=== PATIENT | male | born 1960 | race Caucasian/White ===

== ENCOUNTER → 2024-01-09 09:38 | Outpatient (BNVA) | payer OTHER, SELFPAY | PROVIDERS: PCP Internal Medicine; Visit Provider Physician Assistant Surgical ==

== ENCOUNTER 2024-02-25 09:03 | Outpatient (AMB) | payer OTHER, SELFPAY ==
--- NOTE | 2024-02-25 09:03 | A.OFFVIS_ITS ---
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 He heard about our program from his . His goal is to lose weight and achieve a healthy lifestyle as well as to improve, if not resolve, obesity related medical conditions, including htn. He reports first being concerned about his weight over the last 7-8 years, highest weight to date was 328. Current weight is 328 pounds with a BMI of 51.4. He has tried multiple methods of weight loss including fad diets without permanent results. He lives with his . 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 He wakes at:?5 am, and goes to bed at?10 pm. Dinner is at 7 pm. Breakfast: muffin w egg and cheese AM snack: pb crackers Lunch: sandwich, chips, 4 cookies, yogurt and fruit PM snack: skip Dinner: turkey tips and rice, kielbasa, corn After dinner: ice cream Other snacks: donut Liquids: 64 oz water, 20 oz pepsi or mt dew 1-2 x per week, 6-8 oz oj daily Alcohol/marijuana/tobacco intake: 2-3 beers per week, rare edible, occ cigar Exercise: none, gym membership (PF), elliptical in house GERD score: 0 ROB score: 0 ESS score: 8 QOL score: 77 PFSH Surgical History Hx of oral surgery Hx of colonoscopy Family History Family/Other No problems noted. Social History Alcohol intake: current Alcohol intake frequency: other Alcohol type: beer Comment: weekends socially Patient Tobacco Use Status: Current someday Tobacco user Tobacco use type: Cigar Physical Exam Vital Signs: Last Vital Signs Temp 96.7 F L 02/25/24 09:19 Pulse 92 02/25/24 09:19 BP 156/79 H 02/25/24 09:19 Pulse Ox 96 02/25/24 09:19 Oxygen Delivery Method Room Air 02/25/24 09:19 BMI result Body Mass Index 51.4 Const General: cooperative, healthy appearing and no acute distress Orientation/consciousness: patient oriented x3 HEENT Head: Yes normal to inspection Ears: hearing grossly normal bilaterally General nose exam: Normal external nose present Face and sinus: Yes normal facial exam Eyes General: appearance normal, both eyes and all related structures Resp Effort & Inspection: normal respiratory effort Auscultation: clear to auscultation bilaterally Cardio Rate: regular rate Rhythm: regular rhythm Heart sounds: S1 normal heart sound present and S2 normal heart sound present GI Inspection: Yes normal to inspection, No distended and Yes obesity Palpation (GI): Soft to palpation, nontender and no guarding Auscultation: normal bowel sounds Skin General skin exam: no rashes or lesions noted Neuro General: patient oriented x3 Extrem General: No edema Psych Appearance: grossly normal Mental Status: mental status grossly normal Speech and movement: Normal speech and movement present Affect: normal affect Attitude: cooperative Assessment & Plan Assessment & Plan (1) Morbid obesity: Code(s): E66.01 - Morbid (severe) obesity due to excess calories Category: Medical Plan: This is a?63 yo male who will start our SWL program to prepare for bariatric surgery.? Blood work, CXR, ECG, Abd US and UGI have been ordered. She is being scheduled for initial consultations. She will start SWL classes and watch the first three videos before her next appointment. 1. You have been given a paper with a link to our software ingrid (The Right [email or web address][email or web address]) to generate an individualized nutritional and exercise plan specific for you. Please send me a screenshot of the plans you will generate Meal to include lean meat (beef, fish, pork, turkey, chicken), or vietnamese yogurt, or egg whites, or beans with a salad with olive oil and fruits (berries, pears, apples, kiwi). Avoid salt, breads, potatoes, rice, pasta, desserts. 2. If you choose shakes, each shake would be drunk slowly, like coffee over a period of 2 hours. 3. If you choose bars, cut each bar in 4 pieces and eat each piece in 30 min to make each bar last 2 hours. 4. I emphasized the importance of measuring accurately the food portion and measure it when serving the food on a plate 5. The meal portions include a specific number of forks of meat (protein) and salad. You always eat the meat portion but you can replace up to half of salad/vegetables portion with rice, potatoes or pasta, or a fruit ?if you like. The less you do it the better weight loss will be. 6. One full-size fork is what can be scooped on the fork without falling aside and not what can be bit with the fork. Use regular forks like those you find in a typical restaurant. 7.? Please send me weight measurements from your body composition scale as soon as possible and then once a week. Always include your diet and exercise plan. The best time to weigh yourself is first thing in the morning after going to the bathroom. 8. The best choice for exercise would be elliptical at home weekdays and treadmill/stationary bike/rowing machine at [employer] [facility] gym on the weekends. Alternatively start walking outside daily, tracking calories with a goal of 300 calories per day, daily. You can download the ingrid [employer] which can track your time, distance and calories while walking outside. You press start in the ingrid when you start and then stop when you are finished. 9.?Goal is to lose at least 1.5-2 lbs per week, and about 10% before surgery, which is about 32 pounds 10. Please follow the diet plan exactly without any change. If you don't like something about the plan or you feel hungry you need to communicate with me so I can help you revise the plan. My cell phone number to communicate with me by text is [phone] Patient is morbidly obese and is not considered stable at this time.?I spent a total of 70 minutes reviewing/updating records, examining the patient and counseling the patient on weight management as detailed above. Orders: Orders Insulin Today E66.01 - Morbid (severe) obesity due to excess calories, I10 - Essential (primary) hypertension Lipid Panel Today E66.01 - Morbid (severe) obesity due to excess calories, I10 - Essential (primary) hypertension IRON PROFILE Today E66.01 - Morbid (severe) obesity due to excess calories, I10 - Essential (primary) hypertension Comprehensive Met. Panel Today E66.01 - Morbid (severe) obesity due to excess calories, I10 - Essential (primary) hypertension Zinc Today E66.01 - Morbid (severe) obesity due to excess calories, I10 - Essential (primary) hypertension Vitamin B1 Today E66.01 - Morbid (severe) obesity due to excess calories, I10 - Essential (primary) hypertension Vitamin A Today E66.01 - Morbid (severe) obesity due to excess calories, I10 - Essential (primary) hypertension TSH reflex Free T4 Today E66.01 - Morbid (severe) obesity due to excess calories, I10 - Essential (primary) hypertension Ferritin Today E66.01 - Morbid (severe) obesity due to excess calories, I10 - Essential (primary) hypertension XR chest 2V Today E66.01 - Morbid (severe) obesity due to excess calories, I10 - Essential (primary) hypertension FL upper GI w air Today E66.01 - Morbid (severe) obesity due to excess calories, I10 - Essential (primary) hypertension Hemoglobin A1c Today E66.01 - Morbid (severe) obesity due to excess calories, I10 - Essential (primary) hypertension Complete Blood Count Auto Diff Today E66.01 - Morbid (severe) obesity due to excess calories, I10 - Essential (primary) hypertension Vitamin B12 and Folate Today E66.01 - Morbid (severe) obesity due to excess calories, I10 - Essential (primary) hypertension C Reactive Protein Today E66.01 - Morbid (severe) obesity due to excess calories, I10 - Essential (primary) hypertension Vitamin D 25-OH Total Today E66.01 - Morbid (severe) obesity due to excess calories, I10 - Essential (primary) hypertension US abdomen comp w elastography Today E66.01 - Morbid (severe) obesity due to excess calories, I10 - Essential (primary) hypertension ECG 12 lead EKG Today E66.01 - Morbid (severe) obesity due to excess calories, I10 - Essential (primary) hypertension Referrals Behavioral Health Referral E66.01 - Morbid (severe) obesity due to excess calories, I10 - Essential (primary) hypertension
[2024-02-25 09:19] VITALS: BP 156/79; PULSE 92; TEMP 35.9; O2SAT 96; BMI 51.4
== END 2024-02-25 09:59 | disposition home or self-care (01) ==
PROVIDERS: PCP Internal Medicine; Visit Provider Physician Assistant Surgical
DX: E66.01 Morbid (severe) obesity due to excess calories (principal)
CPT/HCPCS: 99205

== ENCOUNTER → 2024-02-25 09:03 | Outpatient (BNVA) | payer OTHER, SELFPAY | PROVIDERS: PCP Internal Medicine; Visit Provider Physician Assistant Surgical ==

== ENCOUNTER → 2024-03-06 11:14 | Outpatient (BNVA) | payer OTHER, SELFPAY | PROVIDERS: PCP Internal Medicine; Visit Provider Counselor Mental Health ==

== ENCOUNTER → 2024-03-06 11:14 | Outpatient (AMB) | payer OTHER, SELFPAY ==
--- NOTE | 2024-03-06 11:13 | MHC.WMTHER ---
Intake Intake Visit Reasons: TV BH Intake Allergies dextrose 5 % in water [From ZYVOX] Allergy (Unknown, Verified 02/25/24 09:07) HIVES linezolid [From ZYVOX] Allergy (Unknown, Verified 02/25/24 09:07) HIVES PFSH Surgical History Hx of oral surgery Hx of colonoscopy Family History Family/Other No problems noted. Social History Alcohol intake: current Alcohol intake frequency: other Alcohol type: beer Comment: weekends socially Patient Tobacco Use Status: Current someday Tobacco user Tobacco use type: Cigar Behavioral Health Assessment Weight Management Therapy Therapy Notes Details PT is a 63 years old male, who presents for a visit to complete BH assessment as part of surgical weight loss program. PT denied any history of mental health treatment and or past hospitalization/crisis for behavioral health. Also, denies any history or recent safety concerns around SI/SA and/or self-harm/other-harm, also there is no history of substance use reported. There is also no evidence for stress/emotional-eating, and scores from BES suggest low risk for binge eating behavior. PHQ- scores also showed no active symptoms/concerns with depression. On the other hand, mental status exam is within normal limits, suggesting person's functioning is not impaired. At this time patient is cleared from the behavioral health standpoint. Presenting Concerns Referral Source [facility] Provider, PT sees ORACIO, had first visit on 02/25/24 Reason for referral Completion of behavioral health assessment as part of process for weight-loss surgery. Precipitating Event Obesity. Living Situation Current Living Situation Own At risk of losing current housing? No Satisfied with current living situation? Yes Comments PT lives with his and pets (1 dog and 3 cats) Food/Weight/Diet Expectations of change Initial goal is to lose 10% before surgery, which is about 32 pounds. Patient goals are to feel better, healthier and live a long and active life. PT is implementing the following: Current meal plan: 2 shakes, 1 meal, 1 bar. Exercise plan: hasn't started. History/Relationship with food Denies any concerns around emotional eating. PT believes at times his portions are big, and his sweet tooth Example of meals before starting the program: Breakfast: egg, ham and chesse sandwich with juice and milk. Lunch: a deli sandwich with chips, 4 cookies, fruit and yogurt. Dinner: cook at home. meat, potatoes or rice and a vegetable. 1-2 times at week they do take out. Snacks: a banana, crackers around 10:30am. Cookies and sweet things on the weekends. Drinks/Liquids: seltzer, water, 1 cup of juice in the morning, 6oz of milk in the morning. Aprox 1 at week will have 1 can of soda. History/Relationship with weight Growing up he was chubby, but became bigger on his 20's as he had weird work schedules. In the last 10 years, the patient's Lowest weight was 220Lbs and current weight is his highest History/Relationship with dieting About 10 years ago he did a Fat loss program following a diet and workouts, lost 100Lbs over the course of over a year. Binge Eating Do you frequently eat large amounts of food in short periods of time, not feeling physically hungry? No Do you feel out of control when you eat a large amount of food in a short period of time? No Do you eat large amounts of food rapidly and typically alone? No Night Eating Do you wake up at least once during the night to eat? No If you wake up in the night, do you find that it is necessary to eat something in order to fall back asleep? No Do you have little or no appetite in the morning and feel very hungry in the evening, often overeating between dinner and when you go to bed? No Social History Family history and relationship no children, but has 2 stepdaughters (they are 26 and 31). He has 1 sister with 2 kids, parents . He reports good family dynamics. 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 Developmental history and status None. Social support . Community support None. Anabaptist/Spirituality [employer]ology, but doesn't practice since becoming an adult. Cultural/Ethnic information . Legal Involvement and History Current or historical involvement with the legal system? None reported. Education Highest grade completed Bachelors degree. Preferred learning style Learn by doing Currently enrolled in educational program? No Interested in further educational program? No Educational Interests/Skills Describes himself as a problem solver. 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 ) Wants help to find employment? No Meaningful activities Golf, family activities, daily walks with dog. Financial Situation Describe current financial situation Comfortable Financial assistance? None Service Service? No Mental Health and Addiction Treatment Current/Past substance abuse? No Comments Alcohol: 2 times at week, 2-3 beers. Cigarettes/Tobacco: Occasionally, 1 every couple months. Cannabis/Edibles: Edibles for sleeping, 1 time or less at week. Lottery: scratch tickets once in a while. Current/Past addictive behavior concerns? No Psychiatric history PT did marriage counseling in the past for 2 or 4 session. PT denies ever been in crisis or inpatient for mental health. There is no history and/or current concern about SI/SA and self-harm or other harm. Medical and Physical Health Summary Additional Medical History not covered in history None reported. Sexual History concerns None reported Physical exam in the last year? Yes Pain Screening Current pain? No Pain in the last few months? No Medications Is the patient compliant with medications? Yes Does the patient have Lala Guardian in place? Not applicable Does the patient use complimentary health approaches? No Trauma/Abuse History History of trauma? No Questionnaires PHQ-9 Over the last 2 weeks, how often have you been bothered by any of the following problems? 1. Little interest or pleasure in doing things: several days 2. Feeling down, depressed, or hopeless: not at all 3. Trouble falling or staying asleep, or sleeping too much: several days 4. Feeling tired or having little energy: not at all 5. Poor appetite or overeating: not at all 6. Feeling bad about yourself - or that you are a failure or have let yourself or your family down: several days 7. Trouble concentrating on things, such as reading the newspaper or watching television: several days 8. Moving or speaking so slowly that other people could have noticed. Or the opposite - being so fidgety or restless that you have been moving around a lot more than usual: not at all 9. Thoughts that you would be better off or of hurting yourself in some way: not at all Total score: 4 Depression Screening Interpretation: Negative Depression Screening Done: Yes Source: Developed by Drs. Brett Mackey, Albina Olea, Shane Cruz and colleagues, with an educational chely from [employer]. Binge Eating Scale Group 1 A. I don't feel self-conscious about my wt. or body size when I'm with others. B. I feel concerned about how I look to others, but it normally does not make me fell disappointed with myself C. I do get self-conscious about my appearance and wt. which makes me feel disappointed in myself. D. I feel very self-conscious about my wt. and frequently I feel intense shame and disgust for myself. I try to avoid social contacts because of my self-consciousness. Response Group 1: B Group 2 A. I don't have any difficulty eating slowly in the proper manner. B. Although I seem to gobble down foods, I don't end up feeling stuffed because of eating to much. C. At times, I tend to eat quickly and then, I feel uncomfortably full afterwards. D. I have the habit of bolting down my food, without really chewing it. When this happens I usually feel uncomfortably stuffed because I've eaten to much. Response Group 2: A Group 3 A. I feel capable to control my eating urges when I want to. B. I feel like I have failed to control my eating more than the average person. C. I feel utterly helpless when it comes to feeling in control of my eating urges. D. Because I feel so helpless about controlling my eating I have become very desperate about trying to get control. Response Group 3: A Group 4 A. I don't have the habit of eating when I'm bored. B. I sometimes eat when I'm bored, but often I'm able to get busy and get my mind off food. C. I have a regular habit of eating when I'm bored, but occasionally, I can use some other activity to get my mind off eating. D. I have a strong habit of eating when I'm bored. Nothing seems to help me breath the habit. Response Group 4: A Group 5 A. I'm usually physically hungry when I eat something. B. Occasionally, I eat something on impulse even though I really am not hungry. C. I have the regular habit of eating foods, that I might not really enjoy, to satisfy a hungry feeling even though physically, I don't need the food. D. Although I'm not physically hungry, I get a hungry feeling in my mouth that only seems to be satisfied when I eat a food, like sandwich, that fills my mouth. Sometimes, when I eat the food to satisfy my mouth hunger, I then spit the food out so I won't gain weight. Response Group 5: B Group 6 A. I don't feel any guilt or self-hate after I overeat. B. After I overeat, occasionally I feel guilt or self-hate. C. Almost all the time I experience strong guilt or self-hate after I overeat. Response Group 6: A Group 7 A. I don't lose total control of my eating when dieting even after periods when I overeat. B. Sometimes when I eat a forbidden food on a diet, I feel like I blew it and eat even more. C. Frequently, I have the habit of saying to myself, I've blown it now, why not go all the way, when I overeat on a diet. When that happens I eat more. D. I have a regular habit of starting a strict diets for myself but I break the diets by going on an eating binge. My life seems to be either a feast or famine. Response Group 7: A Group 8 A. I rarely eat so much food that I feel uncomfortably stuffed afterwards. B. Usually about once a month, I each such a quantity of food, I end up feeling very stuffed. C. I have regular periods during the month when I eat large amounts of food, either at mealtime or at snacks. D. I eat so much food that I regularly feel quite uncomfortable after eating and sometimes a bit nauseous. Response Group 8: A Group 9 A. My level of calorie intake does not go up very high or go down very low on a regular basis. B. Sometimes after I overeat, I will try to reduce my caloric intake to almost nothing to compensate for the excess calories I've eaten. C. I have a regular habit of overeating during the night. It seems that my routine is not to be hungry in the morning but overeat in the evening. D. In my adult years, I have had week-long periods where I practically starve myself. This follows periods when I overeat. It seems I live a life of either feast or famine. Response Group 9: A Group 10 A. I usually am able to stop eating when I want to. I know when enough is enough. B. Every so often, I experience a compulsion to eat which I can't seem to control. C. Frequently, I experience strong urges to eat which I seem unable to control, but at other times I can control my eating urges. D. I feel incapable of controlling urges to eat. I have a fear of not being able to stop eating voluntarily. Response Group 10: A Group 11 A. I don't have any problem stopping eating when I feel full. B. I usually can stop eating when I feel full but occasionally overeat leaving me feeling uncomfortably stuffed. C. I have a problem stopping eating once I start and usually I feel uncomfortably stuffed after I eat a meal. D. Because I have a problem not being able to stop eating when I want, I sometimes have to induce vomiting to relieve my stuffed feeling. Response Group 11: B Group 12 A. I seem to eat just as much when I'm with others, Family social gatherings as when I'm by myself. B. Sometimes, when I'm with other persons, I don't eat as much as I want to eat because I'm self-conscious about my eating. C. Frequently, I eat only a small amount of food when others are present, because I'm very embarrassed about my eating. D. I feel so ashamed about overeating that I pick times to overeat when I know no one will see me. I feel like a closet eater. Response Group 12: A Group 13 A. I eat three meals a day with only an occasional between meal snack. B. I eat 3 meals a day, but I also normally snack between meals. C. When I am snacking heavily, I get in the habit of skipping regular meals. D. There are regular periods when I seem to be continually eating, with no planned meals. Response Group 13: B Group 14 A. I don't think much about trying to control unwanted eating urges. B. At least some of the time, I feel my thoughts are pre-occupied with trying to control my eating urges. C. I feel that frequently I spend much time thinking about how much I ate or about trying not to eat anymore. D. It seems to me that most of my waking hours are pre-occupied by thoughts about eating or not eating. I feel like I'm constantly struggling not to eat. Response Group 14: B Group 15 A. I don't think about food a great deal. B. I have strong craving for food but they last only for brief periods of time. C. I have days when I can't seem to think about anything else but food. D. Most of my days seem to be pre-occupied with thoughts about food. I feel like I live to eat. Response Group 15: B Group 16 A. I usually know whether or not I'm physically hungry. I take the right portion of food to satisfy me. B. Occasionally, I feel uncertain about knowing whether or not I'm physically hungry. A these times it's hard to know how much food I should take to satisfy me. C. Even though I might know how many calories I should eat, I don't have any idea what is a normal amount of food for me. Response Group 16: C Binge Eating Score: 8 Score less than 17 Minimal Risk Score between 18-26 Moderate Risk Score between 27-46 High Risk Assessment & Plan Assessment & Plan (1) Adjustment disorder, unspecified: Code(s): F43.20 - Adjustment disorder, unspecified Qualifiers: Adjustment disorder type: unspecified type Qualified Code(s): F43.20 - Adjustment disorder, unspecified Plan After completing the assessment, comparing scores from Binge eating scale and PHQ9, with mental status evaluation and patient statements, it is considered that currently there is no risk and/or concerns to move forward with bariatric surgery. This patient has been cleared from BH standpoint and This provider has advised client to utilize available resources such as peer support group, Facebook group and group therapy, also the patient has been informed of BH support available at anytime while she is part of this program. Next ingrid: None. Telehealth Telehealth Telehealth Platform: [facility] Location of provider rendering services: other Location of patient: address on file Patient Identification confirmed using: Name, : Yes Telehealth method: video Patient verbally consented to treatment: Yes Patient verbally consented to billing insurance company: Yes Patient informed of any privacy concerns related to visit: No Minutes spent on Phone/Video with Pt.: 60 Coding Level of Care Code New Pt Tele Psy Diag Eval ([id number]) Patient Type New Diagnoses Adjustment disorder, unspecified type F43.20 Adjustment disorder type: unspecified type Time Spent (min) 60
== END ==
PROVIDERS: PCP Internal Medicine; Visit Provider Counselor Mental Health
DX: F43.20 Adjustment disorder, unspecified (principal)
CPT/HCPCS: 90791

== ENCOUNTER 2024-03-07 08:45 | Outpatient (REF) | payer OTHER, SELFPAY ==
--- NOTE | ~2024-03-07 | US_ITS ---
EXAMINATION: US COMPLETE ABDOMEN WITH LIVER ELASTOGRAPHY CLINICAL INFORMATION: Morbid obesity. COMPARISON: None available. TECHNIQUE: Real-time imaging of the abdominal viscera. Noninvasive ultrasound liver fibrosis assessment is performed using Renu ElastPQ point quantification shear wave elastography (pSWE) with a C5-2 MHz transducer. Multiple elastography samples are obtained. FINDINGS: PANCREAS: The visualized pancreatic head and body are normal in appearance. The remainder of the pancreas is obscured from visualization by the overlying bowel gas. ABDOMINAL AORTA: The proximal, and distal aortic segments are normal in caliber. The mid abdominal aorta is obscured by bowel gas. INFERIOR VENA CAVA: Visualized portions are normal. LIVER: There is poor visualization of the right lobe of the liver, which is probably enlarged. There is increased echogenicity in the liver, with some focal fatty sparing seen adjacent to the gallbladder. No focal lesion or intrahepatic biliary duct dilatation. The right lobe measures 22 cm in length. The left lobe measures 12.7 cm in length. Portal flow is towards the liver (hepatopetal). Shear wave liver elastography median stiffness is 1.49 m/s (reference: normal median stiffness is 1.3 m/s or less). IQR/median stiffness to assess sampling precision is 0.70 (reference: good quality data set is IQR/median stiffness of 0.15 or less). GALLBLADDER: There is cholelithiasis present without evidence of cholecystitis. COMMON BILE DUCT: Normal in caliber measuring 0.5 cm in diameter. RIGHT KIDNEY: Normal. No hydronephrosis. No renal calculi or focal parenchymal lesions. The kidney measures 12.4 cm in maximum dimension. LEFT KIDNEY: Normal. No hydronephrosis. No renal calculi or focal parenchymal lesions. The kidney measures 13.1 cm in maximum dimension. SPLEEN: Normal. The spleen measures 12.2 cm in maximum dimension. FREE FLUID: None. US/US abdomen comp w elastography IMPRESSION: 1. Enlarged echogenic liver, consistent with hepatic steatosis. 2. Liver elastography: In the absence of other known clinical signs, measurements rule out compensated advanced chronic liver disease. If there are known clinical signs, further testing may be needed for confirmation REFERENCE: Society of Radiologists in Ultrasound Liver Stiffness Thresholds (2019): LIVER STIFFNESS THRESHOLDS: *Liver Stiffness equal or less than 1.3 m/s: High probability of being normal. *Liver Stiffness less than 1.7 m/s: In the absence of other known clinical signs, rules out compensated advanced chronic liver disease. *Liver Stiffness 1.7-2.1 m/s: Suggestive of compensated advanced chronic liver disease but need further test for confirmation. *Liver Stiffness over 2.1 m/s: Rules in compensated advanced chronic liver disease. *Liver Stiffness over 2.4 m/s: Suggestive of clinically significant portal hypertension. QUALITY OF DATA SET: *IQR/Median value equal or less than 0.15 implies a quality data set. *IQR/Median value over 0.15 implies a poor quality data set. SIGNIFICANT CHANGE FROM PRIOR EXAM: Significant change if liver stiffness measurement is 10% or greater from prior exam. OTHER CONSIDERATIONS: The stage of liver fibrosis may be overestimated in the setting of acute hepatitis, liver inflammation, elevated liver function tests, hepatic vascular congestion, obstructive cholestasis, non-fasting state, and infiltrative diseases such as amyloidosis and lymphoma. In some patients with NAFLD, the liver stiffness thresholds for compensated advanced chronic liver disease may be lower. In causes other than viral hepatitis and NAFLD, liver stiffness thresholds are not well established. Electronically signed by: Haile Lundberg MD 03/13/2024 09:53 PM EDT
== END 2024-03-07 08:46 | disposition home or self-care (01) ==
LOC: HO.US 08:45
PROVIDERS: PCP Internal Medicine; Visit Provider Physician Assistant Surgical
DX: E66.01 Morbid (severe) obesity due to excess calories (principal); I10 Essential (primary) hypertension
CPT/HCPCS: 76700; 76981

== ENCOUNTER 2024-03-15 08:04 | Outpatient (REF) | payer OTHER, SELFPAY ==
--- NOTE | ~2024-03-15 | XR_ITS ---
EXAMINATION: XR chest 2V CLINICAL INFORMATION: E66.01 - Morbid (severe) obesity due to excess calories COMPARISON: Chest radiograph 06/25/2019 TECHNIQUE: 2 views of the chest FINDINGS: Clear lungs. No pneumothorax. No pleural effusion. Unchanged cardiomediastinal silhouette. XR/XR chest 2V IMPRESSION: No acute cardiopulmonary findings. Electronically signed by: Aletha Medel MD 04/01/2024 04:35 PM EDT
[2024-03-15 08:40] LABS: MANUAL DIFF FLAG NO
[2024-03-15 08:57] LABS: Basophils Percent Auto 0.4 % (0-2); Eosinophils Absolute Auto 0.1 X10*3/uL (0.0-0.4); Eosinophils Percent Auto 1.9 % (0-4); Hematocrit 42.8 % (42.0-52.0); Hemoglobin 14.8 g/dl (14.0-18.0); Imm Gran Abs Auto 0.03 X10*3/uL (0.00-0.03); Imm Gran Pct Auto 0.4 % (0.0-0.4); Lymphocytes Absolute Auto 1.5 X10*3/uL (1.2-4.9); Lymphocytes Percent Auto 21.1 % (20-40); Mean Corpuscular HGB Conc 34.6 g/dl (31.0-36.0); Mean Corpuscular Hemoglobin 30.6 pg (27.0-33.0); Mean Corpuscular Volume 88.4 fL (80.0-98.0); Mean Platelet Volume 9.6 fL (9.4-12.4); Monocytes Absolute Auto 0.8 X10*3/uL (0.1-1.2); Neutrophils Absolute Auto 4.5 x10*3/uL (2.0-8.3); Neutrophils Percent Auto 64.2 % (45-73); Platelet Count 256 X10*3/uL (160-400); Red Blood Count 4.84 X10*6/uL (4.60-5.80)
[2024-03-15 09:37] LABS: Estimated Average Glucose 108 mg/dL; Hemoglobin A1c % 5.4 % (<6.0)
[2024-03-15 09:56] LABS: Alanine Aminotransferase 64 U/L (0-40); Albumin Level 4.1 g/dL (3.5-5.0); Alkaline Phosphatase 97 U/L (39-117); Anion Gap 15 (12-20); Aspartate Amino Transferase 65 U/L (5-37); Bilirubin Total 0.8 mg/dL (0.0-1.0); Blood Urea Nitrogen 19 mg/dL (9-16); C Reactive Protein 1.85 mg/dL (< or = 0.50); Calcium 9.4 mg/dL (8.4-10.2); Carbon Dioxide 25 mmol/L (22-29); Chloride 102 mmol/L (96-108); Cholesterol 191 mg/dL (<200); Estimated Glomerular Filt Rate > 60; Glucose Random 102 mg/dL (60-115); HDL Cholesterol 37 mg/dL (>40); Iron 98 mcg/dL (45-160); LDL Cholesterol Calculated 140 mg/dL (<100); Percent Iron Saturation 34 % (15-50); Potassium 3.9 mmol/L (3.3-5.1); Sodium 138 mmol/L (135-145); Total Iron Binding Capacity 288 mcg/dL (228-428); Total Protein 7.6 g/dL (6.5-8.0); Triglycerides 74 mg/dL (<150); Unsaturated Iron Binding 190 ug/dL
[2024-03-15 10:03] LABS: Ferritin 572 ng/mL (20-250); Insulin 14 uU/mL (2-29); TSH reflex Free T4 0.97 uIU/mL (0.32-4.0); Vitamin D 25-OH Total 33.5 ng/mL (>30)
[2024-03-15 10:19] LABS: Folate 12.2 ng/mL (> or = 4.0); Vitamin B12 1194 pg/mL (200-900)
[2024-03-20 00:34] LABS: Vitamin A 47 mcg/dL (38-98)
[2024-03-22 10:17] LABS: Vitamin B1 <6 nmol/L (8-30)
== END 2024-03-15 08:05 | disposition home or self-care (01) ==
LOC: HO.LAB 08:04
PROVIDERS: PCP Internal Medicine; Visit Provider Physician Assistant Surgical
DX: E66.01 Morbid (severe) obesity due to excess calories (principal); I10 Essential (primary) hypertension; Z13.1 Encounter for screening for diabetes mellitus
CPT/HCPCS: 36415; 71046; 80053; 80061; 82306; 82607; 82728; 82746; 83036; 83525; 83540; 84425; 84443; 84590; 84630; 85025; 86140

== ENCOUNTER → 2024-03-19 06:17 | Outpatient (REF) | payer OTHER, SELFPAY ==
--- NOTE | 2024-03-19 06:22 | ECG_ITS ---
Test Reason : E66.01 - Morbid (severe) obesity due to excess calories Blood Pressure : / mmHG Vent. Rate : 061 BPM Atrial Rate : 061 BPM P-R Int : 170 ms QRS Dur : 094 ms QT Int : 420 ms P-R-T Axes : -08 -09 -21 degrees QTc Int : 422 ms Normal sinus rhythm Minimal voltage criteria for LVH, may be normal variant ( R in aVL ) Borderline ECG No previous ECGs available Referred By: Emeterio Spencer Electronically Signed By:TERESA HUNTLEY
== END ==
LOC: HO.CARD 06:17
PROVIDERS: PCP Internal Medicine; Visit Provider Physician Assistant Surgical
DX: E66.01 Morbid (severe) obesity due to excess calories (principal); I10 Essential (primary) hypertension
CPT/HCPCS: 93005

== ENCOUNTER 2024-03-21 08:05 | Outpatient (AMB) | payer OTHER, SELFPAY ==
--- NOTE | 2024-03-21 14:19 | A.OFFVIS_ITS ---
VS Expanded 03/21/24 14:46 Height 5 ft 7 in Weight 309 lb 4 oz BMI 48.4 Body Fat % 57.3 Body Fat Mass 177.2 Fat Free Mass 132.2 Visceral Fat Rating 30 Body Water % 30.9 Body Water Mass 95.6 Basal Metabolic Rate/Score 1,667 Intake Visit Reasons: TV Follow Up TIMMY / Emeterio 1st Allergies dextrose 5 % in water [From ZYVOX] Allergy (Unknown, Verified 03/21/24 14:19) HIVES linezolid [From ZYVOX] Allergy (Unknown, Verified 03/21/24 14:19) HIVES Medication List - Last Reconciled 03/21/24 by Henri Choi MD aspirin (Adult Aspirin Regimen) 81 mg PO DAILY losartan 50 mg PO DAILY HPI HPI TV Follow Up TIMMY / Emeterio : Details: Start time: 2.05pm, End time: 2.50pm ?I spent 40 minutes speaking with the patient on the phone plus an additional 5 minutes reviewing and updating records for a total of 45 minutes HPI Comments Details: Overall weight loss: 19.4lbs, or 5.9% TBWL Is doing 2 Optimum Nutrition shakes (1/2 scoop in almond milk), 2 Fit Crunch protein bars and one meal (11 forks of protein and 11 forks of salad or vegetables) Exercise: Gym x2-3 per week doing treadmill PFSH Surgical History Hx of oral surgery Hx of colonoscopy Family History Family/Other No problems noted. Social History Alcohol intake: current Alcohol intake frequency: other Alcohol type: beer Comment: weekends socially Patient Tobacco Use Status: Current someday Tobacco user Tobacco use type: Cigar Telehealth Telehealth Telehealth Platform: Telephone Location of provider rendering services: practice address Location of patient: address on file Patient Identification confirmed using: Name, : Yes Telehealth method: voice only Patient verbally consented to treatment: Yes Patient verbally consented to billing insurance company: Yes Patient informed of any privacy concerns related to visit: Yes Minutes spent on Phone/Video with Pt.: 45 Assessment & Plan Assessment & Plan (1) Morbid obesity: Code(s): E66.01 - Morbid (severe) obesity due to excess calories Category: Medical Plan: 1. Plan for lap sleeve gastrectomy. If diaphragmatic or ventral hernias are present at time of surgery, these will be repaired laparoscopically as well. Risks and complications include possible conversion to an open procedure, anastomotic leak, bleeding requiring transfusion, small bowel obstruction, , DVT and pulmonary embolism, cardiac, or pulmonary complications, as tank terminal gauger complications such as anastomotic ulcer, insufficient weight loss and vitamin deficiencies. I emphasized the importance of close follow-up, adherence to instructions and good communication. 2. Continue same nutritional plan of 2 Optimum Nutrition shakes (1/2 scoop in almond milk), 2 Fit Crunch protein bars and one meal (11 forks of protein and 11 forks of salad or vegetables) 3. Change treadmill with an incline of 2.0 and speed of 3.0. Increase incline by 1 every 3 min to a max incline of 8.0, stay 3min at 8.0 and then return to 2.0 and repeat same steps until calorie goal is met. Goal is to burn 2000 calories per week on exercise, which means either 300 calories daily, or 400 calories 5 days per week, or 500 calories 4 days per week, or 650 calories 3 days per week. 4. The best choice would be to purchase a stationary bike, elliptical or treadmill at home that can track calories. Let me know if you do so I can give you an exercise plan. 5. Continue to send me weight measurements weekly on Fridays Orders: Orders CA echo transthorac w con Today R94.31 - Abnormal electrocardiogram [ECG] [EKG] CA lexiscan stress w mazin Today R94.31 - Abnormal electrocardiogram [ECG] [EKG]
[2024-03-21 14:46] VITALS: BMI 48.4
== END 2024-03-21 14:52 | disposition home or self-care (01) ==
LOC: HO.HBS 08:05
PROVIDERS: PCP Internal Medicine; Visit Provider Surgery
DX: E66.01 Morbid (severe) obesity due to excess calories (principal)
CPT/HCPCS: 99214

== ENCOUNTER → 2024-03-21 08:05 | Outpatient (BNVA) | payer OTHER, SELFPAY | PROVIDERS: PCP Internal Medicine; Visit Provider Surgery ==

== ENCOUNTER 2024-05-13 08:34 | Outpatient (REF) | payer OTHER, SELFPAY ==
--- NOTE | ~2024-05-13 | FL_ITS ---
EXAMINATION: XR FLUOROSCOPY UPPER GI WITH AIR CLINICAL INFORMATION: Preoperative evaluation prior to bariatric surgery. COMPARISON: None TECHNIQUE: Fluoroscopic air contrast upper GI examination was performed utilizing standard techniques with thin and thick barium and effervescent granules. Numerous spot images were obtained. FINDINGS: Dual and single contrast images of the esophagus demonstrate normal caliber, contour, and mucosal pattern. No evidence of stricture, mass, or ulcerations identified. Esophageal peristalsis is moderately disorganized. A very small type I hiatal hernia is present. Moderate gastroesophageal reflux is seen up to the thoracic inlet. Dual contrast and single contrast images of the stomach demonstrated normal contour and mucosal pattern without evidence of mass, ulceration, or other abnormality. Contrast freely passed into the gastric antrum and duodenal bulb without delay. Single and air-contrast images of the duodenal bulb demonstrate no abnormality. The duodenal sweep has a normal appearance, course, and mucosal fold appearance. The imaged proximal jejunum has a normal fold pattern and caliber. FLUOROSCOPY TIME: 3 minutes 31 seconds Number of Spot Images: 8 Number of Cine: 12 DOSE AREA PRODUCT: 2926 uGy-m2 (microgray-meter squared) FL/FL upper GI w air IMPRESSION: 1. Moderately disorganized esophageal peristalsis. 2. Very small type I hiatal hernia. 3. Moderate gastroesophageal reflux. This procedure was performed by John Dorado PA-C, and supervised by Dr. Mccray Electronically signed by: Viktor Mccray MD 05/14/2024 04:15 PM [facility]
== END 2024-05-13 08:35 | disposition home or self-care (01) ==
LOC: HO.XRAY 08:34
PROVIDERS: PCP Internal Medicine; Visit Provider Physician Assistant Surgical
DX: E66.01 Morbid (severe) obesity due to excess calories (principal); I10 Essential (primary) hypertension
CPT/HCPCS: 74246

== ENCOUNTER → 2024-05-13 08:36 | Outpatient (BNV) | payer OTHER, SELFPAY | PROVIDERS: PCP Internal Medicine; Visit Provider Physician Assistant Surgical | DX: E66.01 Morbid (severe) obesity due to excess calories (principal); Z01.818 Encounter for other preprocedural examination | CPT/HCPCS: 74246 ==

== ENCOUNTER → 2024-05-19 08:31 | Outpatient (REF) | payer OTHER, SELFPAY ==
--- NOTE | 2024-05-19 08:37 | CA_ITS ---
Transthoracic Echocardiogram Patient (Last, First, Middle): Miguel Ayers, Gender: Male Date of : 1960 Age: 64 Procedure Date: 05/19/2024 Procedure Type: Transthoracic Echocardiogram Location: OP Height: 170.18 cm Weight: 122.93 kg BSA: 2.30 m2 Heart Rate: 57 bpm BP: 148 / 72 mmHg Box Car Checker: SB Referring MD: Henri Choi MD Symptoms: R94.31 - Abnormal electrocardiogram [ECG] [EKG] Study Quality: Adequate w contrast ECG Rhythm: Sinus Conclusions: - The left ventricular systolic function is normal. The calculated ejection fraction is 58% by biplane method. - There is moderate septal asymmetric hypertrophy. - No obvious valvular pathology seen on this study. Findings Procedure Information Contrast agent, definity, is being given per protocol without apparent complications. The quality of the study was technically difficult. The study quality is limited by patients body habitus and lung artifact. Left Ventricle Normal left ventricular cavity size. The left ventricular systolic function is normal. The calculated ejection fraction is 58% by biplane method. There is no evidence of regional wall motion abnormalities. Diastolic function is normal for age. There is moderate septal asymmetric hypertrophy. Right Ventricle Normal right ventricular cavity size and systolic function. Atria The left atrium is mildly dilated. The right atrium is normal in size. Aortic Valve The aortic valve was not well visualized. There is no aortic valve stenosis. There is no aortic valve regurgitation. Mitral Valve The mitral valve appears normal. There is no mitral valve regurgitation. There is no mitral valve stenosis. Pulmonic Valve The pulmonic valve is likely normal. Tricuspid Valve There is no tricuspid valve regurgitation. Tricuspid regurgitation envelope is inadequate for calculation of right ventricular systolic pressure. Great Vessels The asc aorta is normal in size. Venous The inferior vena cava is normal in size and collapses greater than 50% with inspiration. Pericardium/Pleural There is no evidence of pericardial effusion. Prior Study Comparison No prior study available for comparison. Recommendations, Care & Conclusions No obvious valvular pathology seen on this study. Measurements 2D Linear Measurements IVSd: 1.50 0.6-0.9/0.6-1.0 cm LVOT Diam: 2.20 3.0+(-)1.3 cm 2D Systolic Function EF 4C: 54.90 >55% EF 2C: 56.80 >55% EF BiP: 58.00 >55% Mitral Valve MV Pk E: 0.51 MV PK A: 0.82 MV Decel Time: 197.00 E/A: 0.60 E'Lateral: 9.25 E'Medial: 8.16 E/E' Med: 6.30 E/E' Lat: 5.60 PHT: 58.00 MVA PHT: 3.79 Decel Fajardo: 2.61 Aortic Valve AoV Pk Aniceto: 1.15 AoV Pk Grad: 5.00 SERGIO: 3.25 LVOT LVOT Pk Aniceto: 1.07 LVOT Mn Aniceto: 0.68 LVOT VTI: 0.20 LVOT Pk Grad: 5.00 LVOT Mn Grad: 2.00 LVOT Diam: 2.20 LVOT Area: 3.80 Diastolic Function MV Pk E: 0.51 MV Pk A: 0.82 E/A: 0.60 E'Medial: 8.16 E/E' Med: 6.30 E' Laterial: 9.25 E/E' Lat: 5.60 Right Ventricle TAPSE (mm): 17.10 TVS' Aniceto: 11.20 Tricuspid Valve RA Press: 3.00 Great Vessels Aorta Sinus of Valsalva: 3.40 2.0-3.5 cm Ao Asc: 3.70 2.1-3.4 cm Pulmonary Veins Pulm Vein S/D 1.50 Pulmonary Valve PV Pk Aniceto: 1.10 Peak PV Grad: 5.00 Updated in Other Vendor System with Status of Final Paot Bustamante MD electronically signed on 05/20/2024 8:17:59 AM with status of Final
== END ==
LOC: HO.CARD 08:31
PROVIDERS: PCP Internal Medicine; Visit Provider Surgery
DX: R94.31 Abnormal electrocardiogram [ECG] [EKG] (principal)
CPT/HCPCS: 93306; Q9957

== ENCOUNTER → 2024-05-19 08:37 | Outpatient (BNV) | payer OTHER, SELFPAY | PROVIDERS: PCP Internal Medicine; Visit Provider Internal Medicine | DX: I42.2 Other hypertrophic cardiomyopathy (principal) | CPT/HCPCS: 93306 ==

== ENCOUNTER 2024-06-24 07:03 | Emergency (ER) | payer OTHER, SELFPAY ==
--- NOTE | ~2024-06-24 | US_ITS ---
EXAMINATION: US TRIPLEX UPPER EXTREMITY, LEFT CLINICAL INFORMATION: Left hand swollen question DVT COMPARISON: None available. TECHNIQUE: Color-flow triplex imaging with spectral analysis and compression Doppler was performed on the left upper extremity. FINDINGS: The left internal jugular, subclavian, and axillary veins are patent and free of thrombus. The imaged segment of the left brachiocephalic vein is patent. Spectral doppler waveforms are normal. The brachial, basilic, cephalic, radial, and ulnar veins are patent and compressible. US/US venous duplex UE LT IMPRESSION: No evidence of deep venous thrombosis involving the left upper extremity. This study was presented today to June 24, 2024 for interpretation. Stat results provided at this time as requested by referring provider. Electronically signed by: Gwen Nick MD 06/24/2024 12:12 PM [facility]
--- NOTE | ~2024-06-24 | XR_ITS ---
EXAMINATION: XR HAND/WRIST, LEFT CLINICAL INFORMATION: fall- injury COMPARISON: None available. TECHNIQUE: PA, lateral, and oblique views of the left hand and wrist. FINDINGS: No acute cortical disruption or gross malalignment. Status post intubation distal phalanx third digit. Degenerative changes in the distal and interphalangeal joint spaces of the second digit and to a lesser extent fifth digit. No acute cortical disruption or malalignment in the carpal bones. Metallic ring overlapping the proximal phalanx of the fourth digit. XR/XR hand wrist LT IMPRESSION: No acute fracture or dislocation. Electronically signed by: Ayaan Grajeda MD 06/24/2024 08:10 AM [facility]
--- OUTSIDE RECORDS SUMMARY | 2024-06-24 07:05 | XMS_ITS | Data Portability ---
Author Organization [facility] Home Service Address [address] [facility] [facility] [place] [address] Assessment Encounter Date Assessment Date Assessment LastModified by Organization Details LastModified Time 08/24/2020 08/24/2020 [address] [place] [address] ([employer]) MDM MODERATE MUST MEET 2 OUT OF 3 ELEMENTS: PROBLEMS, DATA OR RISK ELEMENT 1: PROBLEMS ADDRESSED OR 2 OR MORE STABLE CHRONIC ILLNESSES OR OR OR ELEMENT 2: DATA MUST MEET 1 OF 3 CATEGORIES CATEGORY 1: REVIEW OF PRIOR EXTERNAL NOTES, REVIEW OF RESULTS, ORDERING OF EACH TEST, ASSESSMENT REQUIRING INDEPENDENT HISTORIAN OR CATEGORY 2: OR CATEGORY 3: ELEMENT 3: RISK RISK OF COMPLICATIONS AND/OR MORBIDITY OR MORTALITY OF PATIENT MANAGEMENT PROVIDER MUST THOROUGHLY DOCUMENT EACH ELEMENT THAT IS COVERED [email or web address] Not available 08/24/2020 18:04:37 Plan of Treatment Reminders Order Date Submit Date Provider Last Modified By Organization Details Last Modified Time Details Appointments None recorded. Lab TSH, serum or plasma 2018 019 jvanasse Not available 9 10:08:01 lipid panel, serum 2018 019 [facility] Not available 0 00:22:01 PSA, serum or plasma 2018 019 [facility]LIN Not available 0 00:22:01 CMP, serum or plasma 2018 019 jvanasse Not available 9 10:08:02 hepatitis C Ab, serum 2018 019 jvanasse Not available 9 10:08:02 lipid panel, serum 2019 020 sbucko Not available 0 16:48:53 CMP, serum or plasma 2019 020 sbucko Not available 0 16:48:54 CMP, serum or plasma 2020 021 MERLIN Not available 1 15:32:15 CBC 2020 021 MERLIN Not available 1 14:42:52 lipid panel, blood 2020 021 MERLIN Not available 1 15:32:15 PSA, serum or plasma 2020 021 MERLIN Not available 1 15:03:28 testosteron e, total, serum 2020 021 MERLIN Not available 1 16:18:15 Referral sleep medicine referral 2019 020 [facility], [address] [place] [address], [id number], 0 09:37:40 Procedures None recorded. Surgeries None recorded. Imaging None recorded. Medication Orders lisinopril 10 mg tablet 2018 019 [id number], [address] [place], [place], [id number], 0 08:32:04 lisinopril 10 mg tablet 2019 020 [facility] #[id number], [address], [place], [id number], 0 08:32:04 losartan 50 mg tablet 2020 021 [facility] #[id number], [address], [place], [id number], 1 12:10:00 sildenafil 25 mg tablet 2022 023 [facility] #[id number], [address], [place], [id number], 3 10:16:49 Patient TargetsNo targets recorded. Patient Instructions Encounter Date Encounter Id Patient Instructions Last Modified By Organization Details Last Modified Time 05/07/2019 [id number] body mass index: care instructions Not available 05/07/2019 10:02:48 learning about healthy weight Not available 05/07/2019 10:02:48 Quitting Tobacco : Care Instructions Not available 05/07/2019 10:02:48 high blood pressure: care instructions Not available 05/07/2019 10:02:48 learning about high blood pressure Not available 05/07/2019 10:02:48 07/23/2019 [id number] body mass index: care instructions Not available 07/23/2019 16:35:53 learning about healthy weight Not available 07/23/2019 16:35:54 sleep apnea: car e instructions Not available 07/23/2019 16:35:53 Quitting Tobacco : Care Instructions Not available 07/23/2019 16:35:53 high blood pressure: care instructions Not available 07/23/2019 16:35:54 learning about high blood pressure Not available 07/23/2019 16:35:54 02/28/2021 [id number] body mass index: care instructions Not available 02/28/2021 15:07:37 learning about healthy weight Not available 02/28/2021 15:07:37 sleep apnea: car e instructions Not available 02/28/2021 15:07:37 high blood pressure: care instructions Not available 02/28/2021 15:07:37 learning about high blood pressure Not available 02/28/2021 15:07:37 Reason for Referral Sleep Medicine Referral for Obstructive sleep apnea syndrome Referring Physician: Heydi Ward, Internal Medicine, Encounter Date: 07/23/2019 Results Created Date Observation Date Name Description Value Unit Range Abnormal Flag Note LastModifiedBy Organization Detail LastModifiedTime 10/13/19 20 10/04/2019 home sleep study No observ ation record ed. [facility] [address] , [place], [address], 10/14/2019 08:21:48 03/13/2003/07/2024 US, abdom en, limit ed No observ ation record ed. [facility] (Medical Records) [address] [place], [address], 03/14/2024 08:57:05 04/01/20 24 03/15/2024 XR, chest , 2 view No observ ation record ed. [email or web address] [facility] (Medical Records) [address] [place], [address], 04/02/2024 08:45:45 05/14/2005/13/2024 XR, abdom en + RF, upper gastr ointe aleida l tract , w/ air, w/ contr ast PO No observ ation record ed. [facility] (Medical Records) [address] [place], [address], 05/14/2024 16:29:08 Result Notes None recorded. Problems Name Problem SNOMED Code Status Onset Date Resolution Date Notes Provider Name and Address Organization Details Recorded Time Cellulitis 881617414 Active 2017 leg Winifred fraser [facility] 8 08:15:14 Hypogonadi sm 02101322 Active 2017 Winifred fraser [facility] 8 08:15:32 Essential hypertensi on 79299716 Active 2020 SORIN ARROA [address] [place] [address], [address], [place] [facility] 1 12:15:43 Obesity 720224598 Active 2020 SORIN ARORA [address] [place], [address], [place] [facility] 1 12:15:50 Obstructiv e sleep apnea syndrome 87752968 Active 2020 Mika Ovalles, DO [address] [facility], [place], [address], [place] [facility] 1 15:03:05 Erectile dysfunctio n 539869838 Active 2022 SORIN ARORA [address] [place], [address], [place] [facility] 3 10:14:52 Problem Notes None recorded. Procedures Surgical History None recorded. Imaging Results Imaging Date Name Status LastModified by Organization Details LastModified Time 10/04/2019 home sleep study completed [facility] [address] [place], [address], 10/14/2019 08:21:48 03/07/2024 US, abdomen, limited completed [facility] (Medical Records) [address] [place], [address], 03/14/2024 08:57:05 03/15/2024 XR, chest, 2 view completed [email or web address] [facility] (Medical Records) [address] [place], [address], 04/02/2024 08:45:45 05/13/2024 XR, abdomen + RF, upper gastrointestinal tract, w/ air, w/ contrast PO completed [facility] (Medical Records) [address] [place] [address], [address], 05/14/2024 16:29:08 Procedure Notes None recorded. Medical Equipment None Reported. Allergies Allergen ID Allergen Name Allergen Category Reaction Reaction Severity Criticality Documentation Date Start Date Code Code System Note Provider Name and Address Organization Details Recorded Time 2202 Zyvox medicatio n hives Not available Not available 03/06/2018 98322 0 RxNorm Winifred fraser [facility] 8 10:39:23 Medications Name Sig Start Date Stop Date Status Note LastModified by Organization Details LastModified Time methylpredn isolone dose pack 4 mg tbpk 03/12 completed Not Available Not Available Not Available benzonatate 100 mg caps 07/23 completed Not Available Not Available Not Available lisinopril 10 mg tabs 07/23 completed Not Available Not Available Not Available losartan 50 mg tablet TAKE 1 TABLET BY MOUTH EVERY DAY 2023 active Not Available Not Available Not Avai lable Medrol (Brian) 4 mg tablets in a dose pack Alt: 24 mg PO on day 1, then decr. by 4 mg/day x5 days per dose pack instructi ons 03/12 completed Not Available Not Available Not Available sildenafil 25 mg tablet TAKE 1 TABLET BY MOUTH EVERY DAY FOR 8 DAYS active Not Available Not Available No t Available lisinopril 10 mg tablet Take 1 tablet every day by oral route for 90 days. 06/21 completed Not Available Not Available Not Available Aspir-81 Take one tablet once a day active Not Available Not Available No t Available Vitals Date Recorded Body weight Heart rate Oxygen saturation Oxygen saturation in Arterial blood by Pulse oximetry Systolic blood pressure Diastolic blood pressure Provider Name and Address Organization Details Last Updated DateTime 9 642874. 15 g 90 /min 98 % 98 % 146 mm[Hg] 86 mm[Hg] [facility] 9 09:53:00 Date Recorded Body weight Heart rate Oxygen saturation Oxygen saturation in Arterial blood by Pulse oximetry Body mass index (BMI) Body height Systolic blood pressure Diastolic blood pressure Provider Name and Address Organization Details Last Updated DateTime 0 540152. 49 g 78 /min 97 % 97 % 47.5 kg/m2 170.18 cm 112 mm[Hg] 80 mm[Hg] [facility] 0 16:15:45 Date Recorded Body weight Heart rate Oxygen saturation Oxygen saturation in Arterial blood by Pulse oximetry Systolic blood pressure Diastolic blood pressure Provider Name and Address Organization Details Last Updated DateTime 1 051972. 6 g 78 /min 97 % 97 % 124 mm[Hg] 80 mm[Hg] [facility] 1 11:52:44 Date Recorded Body weight Body mass index (BMI) Body height Heart rate Oxygen saturation Oxygen saturation in Arterial blood by Pulse oximetry Systolic blood pressure Diastolic blood pressure Provider Name and Address Organization Details Last Updated DateTime 1 201043. 02 g 37.7 kg/m2 201.93 cm 81 /min 98 % 98 % 130 mm[Hg] 70 mm[Hg] Mika Ovalles DO [address] [place], [address], [facility] 14:37:55 Date Recorded Body weight Body mass index (BMI) Body height Heart rate Oxygen saturation Oxygen saturation in Arterial blood by Pulse oximetry Systolic blood pressure Diastolic blood pressure Provider Name and Address Organization Details Last Updated DateTime 3 282399. 07 g 47.5 kg/m2 177.8 cm 87 /min 97 % 97 % 142 mm[Hg] 72 mm[Hg] SORIN ARORA [address] [place], [address] 3 10:03:32 Social History Question Answer Notes LastModified by Organizat ion Details LastModified Time Tobacco Smoking Status Current Some Day Smoker cigar Winifred fraser [facility] 08/24/2020 11:51:00 What Was The Date Of Your Most Recent Tobacco Screening? 2023 [email or web address] Information not available 2023 Sex: Unknown Functional Status None recorded. Mental Status None recorded. Family History Nothing Reported. Medical History No medical history recorded. Immunizations Vaccine Type Date Status Note Provider Nam e and Address Organization Details Recorded Time SARS-COV-2 (COVID-19) vaccine, UNSPECIFIED 10/14/2020 completed Dori fraser [facility] 11/17/2020 10:25:42 Past Encounters Encounter ID Performer Location Encounter Start Date Encounter Closed Date Diagnosis/Indication Diagnosis SNOMED-CT Code Diagnosis ICD10 Code [id number] October [facility] [address],[place] [address] 03/06/2018 10:30:00 03/06/2018 14:47:23 Pain of left shoulder joint 7443789387 8419075 M25.512 [id number] October [facility] [address],[place] [address] 03/12/2018 14:22:57 03/12/2018 15:33:12 Pain of left shoulder joint 8593886335 9682383 M25.512 [id number] [facility] [address] [place] [address] [place] [address] 05/07/2019 09:45:23 05/07/2019 10:10:25 Body mass index 40+ - severely obese 371695361 Z68.41 Essential hypertension 25162106 I10 Tobacco user 497004431 Z 72.0 Screening procedure 2012 5006 Z13.9 Screening for malignant neoplasm of prostate 337744636 Z12.5 [id number] Hey[facility] [address] [place] [address] 07/23/2019 16:08:50 07/23/2019 16:44:12 Body mass index 40+ - severely obese 554316593 Z68.41 Essential hypertension 73742469 I10 Tobacco user 969692583 Z 72.0 Obstructiv e sleep apnea syndrome 53787552 G47.33 [id number] SORIN ARORA [facility] [address] [place] [address] 08/24/2020 11:36:47 08/24/2020 13:31:26 Essential hypertension 15576369 I10 Obesity 612801396 E66.9 Active or passive immunization 708188959 Z23 [id number] Mika Ovalles DO [facility] [address] [place] [address] 02/28/2021 14:21:49 02/28/2021 15:37:08 Active or passive immunization 932336149 Z23 Adult [facility] th examination 886499418 Z00.01 Body mass index 40+ - severely obese 064283254 Z68.41 Hypogonadism 78135847 E2 9.1 Essential hypertension 20640901 I10 Obstructiv e sleep apnea syndrome 17632151 G47.33 [id number] SORIN ARORA [facility] [address] [place] [address] 2023 09:59:42 2023 10:35:02 Obstructive sleep apnea syndrome 07336543 G47.33 Essential hypertension 39797402 I10 Hypogonadism 54874978 E2 9.1 Erectile dysfunction 860 877450 N52.8 Body mass index 40+ - severely obese 375850387 Z68.41 Health Concerns Section Related Observation LastModified by Organization Detai ls LastModified Time None Recorded Concern Status LastModified by Organization Details LastModified Time None Recorded Advance Directives Directive None Recorded Payers Encounter Date Sequence Insurance Name Policy Number Policy Valadez Covered Member ID Valadez Member ID Guarantor Name 05/07/2019 1 [place] [id number] Miguel Beasley [id number] Miguel Beasley 07/23/2019 1 [place] [id number] Miguel Beasley [id number] Miguel ZuñigaCancharline 08/24/2020 1 [facility] [id number] Miguel Tripp MacCancharline [id number] Miguel MacCancharline 02/28/2021 1 [facility] [id number] Miguel Tripp MacCannell [id number] Miguel MacCancharline 2023 1 [facility] [id number] Miguel Tripp MacCannell [id number] Miguel ZuñigaCancharline Notes Date Note Type Note Provider Name a nd Address Organization Details Recorded Time 9 text/html 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, bp was rechecked but there was not much of a difference did not pass DOT because of BP lots of stress with job has gained about 40 lb in the last year planning to leave job and start a new job thnks that will help wit hthe stress 12 system ROS negative except where noted above- denies: chest pain, palpitations, sob, ankle swelling, visual problems, hearing problems, muscle aches or pains, numbness or tingling extremities, abdominal pain, bowel issues, bladder issues, sexual dysfunction, abnormal bleeding, sx of sinus/respiratory infection , headaches, dizziness/lightheaded ness, rashes, or nail changes. 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, bp was rechecked but there was not much of a difference did not pass DOT because of BP lots of stress with job has gained about 40 lb in the last year planning to leave job and start a new job thnks that will help wit hthe stress 12 system ROS negative except where noted above- denies: chest pain, palpitations, sob, ankle swelling, visual problems, hearing problems, muscle aches or pains, numbness or tingling extremities, abdominal pain, bowel issues, bladder issues, sexual dysfunction, abnormal bleeding, sx of sinus/respiratory infection , headaches, dizziness/lightheaded ness, rashes, or nail changes. THEO Guillermo [address] [place], [address], [facility] 07/23/2019 16:40:01 1 text/html BP fu the patient BP is excellent today on his medication outlier last time the patient doing fine on medication with no side effects the patient reports does infrequent leg cramping one per month if that suggested either increasing K or Mg at night or trying gatorade or stretching if it continues or becomes more frequent will look into blood tests otherwise no concerns today SORIN ARORA [address] [place], [address], [facility] 08/24/2020 18:05:26 1 text/html Annual WellnessReported bypatient.Diet and Nutrition:healthy diet Fracture Risk:no history of fractures; no recent explained fracture; no sudden unexplained fractures; no previous musculoskeletal injuries Physical Activity:does not exercise on a regular basis;decreased physical activity;poor physical condition;decondition ed due to sedentary lifestyle Additional Lifestyle Factors:no tobacco use; no alcohol intake; stopped drinking alcohol Depression Risk:never feels sad, empty, or tearful; no loss of interest in activities; no significant changes in weight; no sleep disturbances or insomnia; no agitation; no loss of energy; no feelings of worthlessness or guilt; no thoughts of suicide; no history of depression; no history of mood disorders Hearing:no loss of hearing Vision:no vision problems Mika Ovalles DO [address] [place], [address], [facility] 02/28/2021 15:11:54 3 text/html medication check HTN: today in the office the patient BP is stable at home and with recheck the patient is doing well on the BP medication with no side effects and no adjustment of their medications needed today at the appointment well-controlled on medication denies chest pain, sob, ankle swelling, orthopnea, palpitations COPD: stable ED/hypogonadism: stable BMI: down in weight SORIN ARORA [address] [place], [address], [facility] 2023 10:20:23
[2024-06-24 07:10] VITALS: BP 147/76; PULSE 59; RESP 16; TEMP 36.4; O2SAT 99; BMI 40.6
[2024-06-24 10:15] LABS: MANUAL DIFF FLAG NO
[2024-06-24 10:16] LABS: Basophils Percent Auto 0.3 % (0-2); Eosinophils Absolute Auto 0.1 X10*3/uL (0.0-0.4); Eosinophils Percent Auto 0.6 % (0-4); Hematocrit 43.8 % (42.0-52.0); Hemoglobin 15.1 g/dl (14.0-18.0); Imm Gran Abs Auto 0.03 X10*3/uL (0.00-0.03); Imm Gran Pct Auto 0.3 % (0.0-0.4); Lymphocytes Absolute Auto 1.2 X10*3/uL (1.2-4.9); Lymphocytes Percent Auto 12.8 % (20-40); Mean Corpuscular HGB Conc 34.5 g/dl (31.0-36.0); Mean Corpuscular Hemoglobin 30.8 pg (27.0-33.0); Mean Corpuscular Volume 89.4 fL (80.0-98.0); Mean Platelet Volume 9.4 fL (9.4-12.4); Monocytes Absolute Auto 1.1 X10*3/uL (0.1-1.2); Monocytes Percent Auto 11.3 % (2-11); Neutrophils Absolute Auto 7.2 x10*3/uL (2.0-8.3); Neutrophils Percent Auto 74.7 % (45-73); Platelet Count 269 X10*3/uL (160-400); Red Cell Distribution Width 12.5 % (11.0-16.0); White Blood Count 9.6 X10*3/uL (4.8-10.8)
--- NOTE | 2024-06-24 10:20 | ED.GENADULT ---
HPI - General Adult General Chief complaint: Extremity Injury, Lower Stated complaint: wrist inj Time Seen by Provider: 06/24/24 09:17 Source: patient Mode of arrival: ambulatory Limitations: no limitations History of Present Illness ED Provider: Edin Hilario PA-C HPI narrative: 64-year-old male history of hypertension, obstructive sleep apnea presents to ED for left-sided hand pain. Patient states started last night he started having pain in his left index finger and thumb. Patient fell on the outstretched hand 2 weeks ago but had no pain. Patient states pain when he does the OK sign or fist. Patient denies any redness, fever, chills, IV drug use, or insect bites Related Data Home Medications ?Medication ?Instructions ?Recorded ?Confirmed aspirin 81 mg tablet,delayed 81 mg PO DAILY 01/09/24 03/21/24 release (Adult Aspirin Regimen) losartan 50 mg tablet 50 mg PO DAILY 01/09/24 03/21/24 Previous Rx's ?Medication ?Instructions ?Recorded thiamine HCl (vitamin B1) 100 mg 100 mg PO DAILY 90 days #90 tabs 03/24/24 tablet cephalexin 500 mg capsule 500 mg PO QID 7 days #28 caps 06/24/24 colchicine 0.6 mg capsule 0.6 mg PO BID 3 days #6 caps 06/24/24 oxycodone 5 mg capsule 5 mg PO Q8H PRN pain 3 days #9 caps 06/24/24 prednisone 20 mg tablet 40 mg (2 x 20 mg) PO DAILY 5 days 06/24/24 #10 tabs Allergies Allergy/AdvReac Type Severity Reaction Status Date / Time dextrose 5 % in water Allergy Unknown HIVES Verified 06/24/24 07:13 [From ZYVOX] linezolid [From ZYVOX] Allergy Unknown HIVES Verified 06/24/24 07:13 Review of Systems Review of Systems: Left index finger thumb pain Yes all other systems are reviewed and are negative PMFSH Past Medical History Surgical History Hx of oral surgery Hx of colonoscopy Family History Family History Family/Other No problems noted. Social History Social History Alcohol intake: current Alcohol intake frequency: other Alcohol type: beer Comment: weekends socially Patient Tobacco Use Status: Current someday Tobacco user Tobacco use type: Cigar Physical Exam ED Vital Signs: Vital Signs - 24 hr 06/24/24 07:10 06/24/24 11:47 06/24/24 13:13 Temperature 97.5 F 97.9 F 97.9 F Pulse Rate 59 51 51 Respiratory Rate 16 16 16 Blood Pressure 147/76 H 141/75 H 141/75 H Pulse Oximetry 99 100 100 Oxygen Delivery Method Room Air Room Air Room Air BMI result Body Mass Index 40.6 Const General: cooperative, healthy appearing, comfortable, no acute distress, well developed, alert, awake and Physically active [facility] Head: Yes normal to inspection, Yes No palpable skull fracture present, Yes normocephalic and Yes atraumatic Eyes General: appearance normal, both eyes and all related structures Neck Neck: Yes normal visual inspection, Yes full ROM, Yes no lymphadenopathy, Yes no meningeal signs, Yes trachea midline, Yes supple, No anterior neck swelling and No tender Chest Chest palpation & inspection: normal inspection of the chest and normal palpation of entire chest wall Resp Effort & Inspection: normal respiratory effort and able to speak in complete sentences Auscultation: clear to auscultation bilaterally Cardio Jugular venous distension: no JVD Heart sounds: S1 normal heart sound present and S2 normal heart sound present GI Inspection: Yes normal to inspection Palpation (GI): Soft to palpation, not firm, nontender, no guarding and not rigid General: Yes no CVA tenderness Back/Spine/Pelvis Back: no CVA tenderness and No back tenderness Skin General skin exam: no rashes or lesions noted, elasticity normal and turgor normal Neuro General: gait normal, tone normal, moves all extremities, Normal light touch and pain sensation, no meningeal signs, no focal motor deficits, CN's II-XI intact bilaterally and normal sensation to monofilament Extrem Other: Left upper extremity: Negative for any karvali signs or beefy red finger. Patient is able to flex and extend thumb index finger and all the rest of his fingers. Negative for any erythema, pus discharge, foul odor, stiffness, bluish black discoloration, hotness, coldness. Whole extremity normal. Motor/neuro/vascular exam intact. Positive for swelling/tendernss of index finger and thumb joint tenderness on palpation. RIght upper extremity: Normal. motor, neuro, and vascula rexam is intact. General: Yes normal to inspection, Yes full ROM and Yes capillary refill normal Psych Appearance: grossly normal, well kempt and not disheveled Medications Administered Discontinued Medications Generic Name Dose Route Start Last Admin Trade Name Daniel PRN Reason Stop Dose Admin Ketorolac Tromethamine 30 mg 06/24/24 10:33 06/24/24 11:53 Ketorolac Tromethamine 30 Mg/Ml Vial IM 06/24/24 10:34 30 mg ONCE ONE Administration Prednisone 60 mg 06/24/24 10:33 06/24/24 11:53 Prednisone 20 Mg Tablet PO 06/24/24 10:34 60 mg ONCE ONE Administration Medical Decision Making Medical Decision Making [facility] Narrative: 64-year-old male presents to ED for left hand pain. Pain mostly had index and thumb. Negative for any erythema. Patient is able to flex and extend thumb and left index finger able to do okay sign and fist without pain. Negative for any warmth pus discharge red streaks, bluish black discoloration, hotness, coldness. Vascular motor neuro exam intact. Left hand at thumb index finger looks slightly more swollen than right. Ultrasound ordered to rule out DVT labs ordered check for uric accident. X-ray did show interphalangeal joint degenerative disc disease which can cause pain and swelling. NEgative Kavali sign. 12:38pm: Ultrasound negative for DVT. Dr. Burdick came and evaluate patient and agree negative for signs of tenosynovitis. He states patient most likely has inflamed arthritis possible gout even though uric acid is negative. Recommend patient be discharged pain medication, colcicine, and steroids. He states unlikely any cellulitis but patient can be discharged with Keflex. Patient will be placed in velcro wrist splint and follow up with hand surgeon. Patient explained worrisome signs and informed to return to the ED immediately. Not suspecting septic joint, tenosynovitis, osteomyelitis, cellulitis, necrotizing fasciitis, arterial occlusion, or DVT. Differential Diagnosis Differential Diagnoses: The differential diagnosis associated with the presentation includes Admission/Observation Consideration of admission/observation: Escalation of care including admission/observation considered (gout, fracture, arthritis) Lab Data [facility] Lab Attestation statement: I reviewed the patient's lab results. 06/24/24 10:11 06/24/24 10:11 Labs: Lab Results 06/24/24 Range/Units 10:11 WBC 9.6 (4.8-10.8) X10*3/uL RBC 4.90 (4.60-5.80) X10*6/uL Hgb 15.1 (14.0-18.0) g/dl Hct 43.8 (42.0-52.0) % MCV 89.4 (80.0-98.0) fL MCH 30.8 (27.0-33.0) pg MCHC 34.5 (31.0-36.0) g/dl RDW 12.5 (11.0-16.0) % Plt Count 269 (160-400) X10*3/uL MPV 9.4 (9.4-12.4) fL Immature Gran % (Auto) 0.3 (0.0-0.4) % Neut % (Auto) 74.7 H (45-73) % Lymph % (Auto) 12.8 L (20-40) % [place] % (Auto) 11.3 H (2-11) % Eos % (Auto) 0.6 (0-4) % Baso % (Auto) 0.3 (0-2) % Lymph # (Auto) 1.2 (1.2-4.9) X10*3/uL [place] # (Auto) 1.1 (0.1-1.2) X10*3/uL Eos # (Auto) 0.1 (0.0-0.4) X10*3/uL Baso # (Auto) 0.0 (0.0-0.2) X10*3/uL Abs Immat Gran (auto) 0.03 (0.00-0.03) X10*3/uL Absolute Neuts (auto) 7.2 (2.0-8.3) x10*3/uL Absolute Nucleated RBC 0.000 (0.0-0.012) X10*3/uL Nucleated RBC % (auto) 0.0 (0.0-0.2) /100WBC ESR 32 H (0-15) MM/HR PT 12.7 H (10.9-12.4) SEC INR 1.1 (0.9-1.1) APTT 30.5 (26.0-36.8) SEC Sodium 138 (135-145) mmol/L Potassium 4.1 (3.3-5.1) mmol/L Chloride 103 (96-108) mmol/L Carbon Dioxide 30 H (22-29) mmol/L Anion Gap 9 L (12-20) BUN 19 H (9-16) mg/dL Creatinine 0.72 (0.5-1.4) mg/dL Estim Creat Clear Calc 130.5 Estimated GFR > 60 Random Glucose 106 (60-115) mg/dL Uric Acid 5.2 (3.4-7.0) mg/dL Calcium 9.6 (8.4-10.2) mg/dL Total Bilirubin 0.6 (0.0-1.0) mg/dL AST 31 (5-37) U/L ALT 26 (0-40) U/L Alkaline Phosphatase 109 (39-117) U/L C-Reactive Protein 2.73 H (< or = 0.50) mg/dL Total Protein 7.6 (6.5-8.0) g/dL Albumin 3.8 (3.5-5.0) g/dL Independent Interpretation I performed an independent interpretation of an: Plain X-Ray and Ultrasound Radiology Impression Discussion of test interpretation with radiology: I have reviewed the radiologist's reading. Prescription Management I considered prescription management with: Pain Medication and Antibiotic Discharge Plan Discharge Clinical Impression: Inflammatory arthritis Patient Disposition: Home, Self-Care Instructions: Osteoarthritis (ED) Additional Instructions: You will need to follow-up with hand surgeon. You will be discharged with pain medication. Very unlikely you are having an infection, but will be discharged with antibiotics. Return to the ED immediately for any worsening pain, increased swelling, erythema, bluish black discoloration, fever, chills, nausea, vomiting, red streaks, or any other concerning symptoms. US/US venous duplex UE LT IMPRESSION: No evidence of deep venous thrombosis involving the left upper extremity. This study was presented today to June 24, 2024 for interpretation. Stat results provided at this time as requested by referring provider. Electronically signed by: Gwen Nick MD 06/24/2024 12:12 PM [facility] XR/XR hand wrist LT IMPRESSION: No acute fracture or dislocation. Electronically signed by: Ayaan Grajeda MD 06/24/2024 08:10 AM [facility] Prescriptions: New prednisone 20 mg tablet 40 mg PO DAILY 5 Days Qty: 10 0RF colchicine 0.6 mg capsule 0.6 mg PO BID 3 Days Qty: 6 0RF oxycodone 5 mg capsule 5 mg PO Q8H PRN (Reason: pain) 3 Days Qty: 9 0RF Rx Instructions: Partial Fill upon patient request. cephalexin 500 mg capsule 500 mg PO QID 7 Days Qty: 28 0RF No Action thiamine HCl (vitamin B1) 100 mg tablet 100 mg PO DAILY 90 Days Qty: 90 1RF losartan 50 mg tablet 50 mg PO DAILY aspirin [Adult Aspirin Regimen] 81 mg tablet,delayed release (DR/EC) 81 mg PO DAILY Referrals: Tamie Reynoso MD [Physician] - (Inflammatory arthritis) Stand Alone Forms: Work/School Release Interventions: ED Discharge Assessment Last Done: 06/24/24 13:13 Discharge Date/Time: 06/24/24 13:14 Print Language: Bengali
[2024-06-24 10:31] LABS: INTERNATIONAL NORM RATIO 1.1 (0.9-1.1); Prothrombin Time 12.7 SEC (10.9-12.4)
[2024-06-24 10:33] LABS: Partial Thromboplastin Time 30.5 SEC (26.0-36.8)
[2024-06-24 10:38] LABS: Alanine Aminotransferase 26 U/L (0-40); Albumin Level 3.8 g/dL (3.5-5.0); Alkaline Phosphatase 109 U/L (39-117); Anion Gap 9 (12-20); Aspartate Amino Transferase 31 U/L (5-37); Bilirubin Total 0.6 mg/dL (0.0-1.0); Blood Urea Nitrogen 19 mg/dL (9-16); C Reactive Protein 2.73 mg/dL (< or = 0.50); Calcium 9.6 mg/dL (8.4-10.2); Carbon Dioxide 30 mmol/L (22-29); Chloride 103 mmol/L (96-108); Creatinine Clr Calc Pharmacy 130.5; Estimated Glomerular Filt Rate > 60; Glucose Random 106 mg/dL (60-115); Potassium 4.1 mmol/L (3.3-5.1); Sodium 138 mmol/L (135-145); Total Protein 7.6 g/dL (6.5-8.0); Uric Acid 5.2 mg/dL (3.4-7.0)
[2024-06-24 10:54] LABS: Erythrocyte Sedimentation Rate 32 MM/HR (0-15)
[2024-06-24 11:47] VITALS: BP 141/75; PULSE 51; RESP 16; TEMP 36.6; O2SAT 100
[2024-06-24] MEDS: Ketorolac Tromethamine 30 MG/ML VIAL IM (11:53)
[2024-06-24] MEDS: predniSONE 20 MG TABLET 60 MG PO (11:53)
[2024-06-24 13:13] VITALS: BP 141/75; PULSE 51; RESP 16; TEMP 36.6; O2SAT 100
== END 2024-06-24 13:14 | disposition home or self-care (01) ==
PROVIDERS: Physician Assistant; Emergency Provider Emergency Medicine Emergency Medical Services; PCP Internal Medicine
DX: M19.032 Primary osteoarthritis, left wrist (principal); R60.0 Localized edema; M79.642 Pain in left hand; Z79.899 Other long term (current) drug therapy
CPT/HCPCS: 36415; 73110; 73130; 80053; 84550; 85025; 85610; 85652; 85730; 86140; 93971; 96372; 99284; J1885

== ENCOUNTER 2024-07-15 06:12 | Outpatient (REF) | payer OTHER, SELFPAY ==
--- OUTSIDE RECORDS SUMMARY | 2024-07-15 06:15 | XMS_ITS | Continuity of Care Document ---
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 MODERATE MUST MEET 2 OUT OF 3 ELEMENTS: PROBLEMS, DATA OR RISK ELEMENT 1: PROBLEMS ADDRESSED 1 OR MORE CHRONIC ILLNESS WITH EXACERBATION OR 2 OR MORE STABLE CHRONIC ILLNESSES OR 1 UNDIAGNOSED NEW PROBLEM OR 1 ACUTE ILLNESS W/SYMPTOMS OR 1 ACUTE COMPLICATED INJURY ELEMENT 2: DATA MUST MEET 1 OF 3 CATEGORIES CATEGORY 1: REVIEW OF PRIOR EXTERNAL NOTES, REVIEW OF RESULTS, ORDERING OF EACH TEST, ASSESSMENT REQUIRING INDEPENDENT HISTORIAN OR CATEGORY 2: INDEPENDENT INTERPRETATION OF TESTS BY ANOTHER PHYSICIAN OR SPECIALIST OR CATEGORY 3: DISCUSSION OF MGT OR TEST INTERPRETATION W/EXTERNAL PHYSICIAN OR SPECIALIST ELEMENT 3: RISK RISK OF COMPLICATIONS AND/OR MORBIDITY OR MORTALITY OF PATIENT MANAGEMENT PROVIDER MUST THOROUGHLY DOCUMENT EACH ELEMENT THAT IS COVERED Not available 06/27/2024 09:22:23 Plan of Treatment Reminders Order Date Submit Date Provider Last Modified By Organization Details Last Modified Time Details Appointments FOLLOW UP 15 2024 10:00A M DR HOGUE Not available Not available Not available Lab CMP, serum or plasma 2023 024 Not available 06/27/2024 09:29:02 PSA, serum or plasma 2023 024 Not available 06/27/2024 09:29:02 testoste mio, total, serum 2023 024 Not available 06/27/2024 09:29:02 uric acid, serum or plasma 2023 024 Not available 06/27/2024 09:29:02 Referral None recorded . Procedures None recorded . Surgeries None recorded . Imaging None recorded . Medication Orders None recorded . Patient TargetsNo targets recorded. Patient Instructions Encounter Date Encounter Id Patient Instructions Last Modified By Organization Details Last Modified Time 06/27/2024 [id number] When You Want to Lose Weight: Care Instructions [email or web address] Not available 06/27/2024 09:24:03 high blood pressure: care instructions Not available 06/27/2024 09:24:03 learning about high blood pressure Not available 06/27/2024 09:24:03 Reason for Referral None Reported. Results Created Date Observation Date Name Description Value Unit Range Abnormal Flag Note LastModifiedBy Organization Detail LastModifiedTime 06/24/2006/24/2024 XR, wrist No observ ation record ed. [email or web address] [facility] (Medical Records) [address] [place], [address], 06/24/2024 15:14:28 06/24/2006/24/2024 US, ivettele x, venou s, extre mity, compl ete No observ ation record ed. [facility] (Medical Records) [address] [place], [address], 06/24/2024 12:18:01 Result Notes None recorded. Problems Name Problem SNOMED Code Status Onset Date Resolution Date Notes Provider Name and Address Organization Details Recorded Time Cellulitis 952902204 Active 2017 leg Winifred fraser [facility] 8 08:15:14 Hypogonadi sm 50006267 Active 2017 Winifred fraser [facility] 8 08:15:32 Essential hypertensi on 98341967 Active 2020 SORIN ARORA [address] [place] [address], [phone], [place] [facility] 1 12:15:43 Obesity 814693609 Active 2020 SORIN ARORA [address] [place] [address], [phone], [facility] 1 12:15:50 Obstructiv e sleep apnea syndrome 35225244 Active 2020 Mika JoseeGlenn Goyalálvaro, DO [address] [place] [address], [phone], [facility] 1 15:03:05 Erectile dysfunctio n 361391753 Active 2022 SORIN ARORA [address] [place], [address], [facility] 3 10:14:52 Acute gout 177076845 Active 2023 Mika JoseeGlenn Hogue, [address] [place] [address], [phone], [facility] 4 09:23:44 Problem Notes None recorded. Medical Equipment None Reported. Allergies Allergen ID Allergen Name Allergen Category Reaction Reaction Severity Criticality Documentation Date Start Date Code Code System Note Provider Name and Address Organization Details Recorded Time 2202 Zyvox medicatio n hives Not available Not available 03/06/2018 84406 0 [facility] 8 10:39:23 Medications Name Sig Start Date Stop Date Status Note LastModified by Organization Details LastModified Time methylpredn isolone dose pack 4 mg tbpk 03/12 completed Not Available Not Available Not Available benzonatate 100 mg caps 07/23 completed Not Available Not Available Not Available b-1 100 mg tabs active Not Available Not Available Not Available lisinopril 10 mg tabs 07/23 completed Not Available Not Available Not Available losartan 50 mg tablet TAKE 1 TABLET BY MOUTH EVERY DAY active Not Available Not Available No t Available Medrol (Brian) 4 mg tablets in a dose pack Alt: 24 mg PO on day 1, then decr. by 4 mg/day x5 days per dose pack instructi ons 03/12 completed Not Available Not Available Not Available prednisone 20 mg tablet TAKE 2 TABLETS BY MOUTH DAILY FOR 5 DAYS active Not Available Not Available No t Available sildenafil 25 mg tablet TAKE 1 TABLET BY MOUTH EVERY DAY FOR 8 DAYS active Not Available Not Available No t Available cephalexin 500 mg capsule TAKE 1 CAPSULE BY MOUTH FOUR TIMES DAILY FOR 7 DAYS active Not Available Not Available No t Available lisinopril 10 mg tablet Take 1 tablet every day by oral route for 90 days. 06/21 completed Not Available Not Available Not Available oxycodone 5 mg capsule TAKE 1 CAPSULE BY MOUTH EVERY 8 HOURS FOR 3 DAYS NEEDED FOR PAIN active Not Available Not Available No t Available Vitamin B-1 100 mg tablet TAKE 1 TABLET BY MOUTH DAILY active Not Available Not Available No t Available Aspir-81 Take one tablet once a day active Not Available Not Available No t Available colchicine 0.6 mg capsule TAKE 1 CAPSULE BY MOUTH TWICE DAILY FOR 3 DAYS active Not Available Not Available No t Available Vitals Date Recorded Body height Body mass index (BMI) Body weight Heart rate Oxygen saturation Oxygen saturation in Arterial blood by Pulse oximetry Systolic blood pressure Diastolic blood pressure Provider Name and Address Organization Details Last Updated DateTime 4 177.8 cm 40.9 kg/m2 136205. 83 g 64 /min 99 % 99 % 118 mm[Hg] 70 mm[Hg] Ricardo Rees [facility] 4 09:06:22 Social History Question Answer Notes LastModified by Organizat ion Details LastModified Time Tobacco Smoking Status Current Some Day Smoker cigar Winifred fraser [facility] 08/24/2020 11:51:00 What Was The Date Of Your Most Recent Tobacco Screening? 06/27/2024 [email or web address] Information not available 06/27/2024 Sex: Unknown Functional Status None recorded. Mental Status None recorded. Family History Nothing Reported. Medical History No medical history recorded. Immunizations Vaccine Type Date Status Note Provider Nam e and Address Organization Details Recorded Time SARS-COV-2 (COVID-19) vaccine, UNSPECIFIED 10/14/2020 completed Dori fraser [facility] 11/17/2020 10:25:42 Past Encounters Encounter ID Performer Location Encounter Start Date Encounter Closed Date Diagnosis/Indication Diagnosis SNOMED-CT Code Diagnosis ICD10 Code Diagnosis Note [id number] Mika Hogue DO [facility] [address] [address] 06/27/2024 08:58:15 06/27/2024 09:38:43 Depression screening 802970964 Z13.31 neg Essential hypertension 45203940 I10 will chk usual labwe will then hold the losartan after he finsihes the current 90 day rx in late may then we will have him chk bp at home and see him after holidays Hypogonadism 96399187 E2 9.1 we will rechk the lab Obesity 274128774 E66.9 dropped 70 lbs and will be going for bariatric surg in aug Acute gout 439398558 M10 .00 Health Concerns Section Related Observation LastModified by Organization Detai ls LastModified Time None Recorded Concern Status LastModified by Organization Details LastModified Time None Recorded Payers Encounter Date Sequence Insurance Name Policy Number Policy Valadez Covered Member ID Valadez Member ID Guarantor Name 06/27/2024 1 [facility] [id number] Miguel Beasley [id number] Miguel Beasley Notes Date Note Type Note Provider Name a nd Address Organization Details Recorded Time 06/27/2024 text/html here for jessica jones nd is feeling well relates that he has lost 70lbs through the [facility] loss [facility] !!!! also has had a recent attack of severe inflammatory arthritiswhich certainly sounds like an acute gout attack Mika Hogue, DO [address], [place], [address], [facility] 06/27/2024 09:25:43
--- OUTSIDE RECORDS SUMMARY | 2024-07-15 06:15 | XMS_ITS | Data Portability ---
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 MUST MEET 2 OUT OF [...] Not available Not available Not available Lab lipid panel, serum 2019 [email or web address] Not available 07/23/2019 16:48:53 CMP, serum or plasma 2019 020 sbucko Not available 07/23/2019 16:48:54 CMP, serum or plasma 2020 021 [facility] Not available 03/02/2021 15:32:15 CBC 2020 [facility] Not available 03/02/2021 14:42:52 lipid panel, blood 2020 [facility] Not available 03/02/2021 15:32:15 PSA, serum or plasma 2020 [facility] Not available 03/02/2021 15:03:28 testoster one, total, serum 2020 021 [facility] Not available 03/02/2021 16:18:15 CMP, serum or plasma 2023 024 Not available 06/27/2024 09:29:02 PSA, serum or plasma 2023 024 Not available 06/27/2024 09:29:02 testoster one, total, serum 2023 024 Not available 06/27/2024 09:29:02 uric acid, serum or plasma 2023 024 Not available 06/27/2024 09:29:02 Referral sleep medicine referral 2019 [facility], [address], [address], 07/25/2019 09:37:40 Procedures None recorded. Surgeries None recorded. Imaging None recorded. Medication Orders lisinopri l 10 mg tablet 2019 [id number], [address], [place], [phone], 06/21/2020 08:32:04 losartan 50 mg tablet 2020 021 [facility] #[id number], [address], [place], [phone], 08/24/2020 12:10:00 sildenafi l 25 mg tablet 2022 023 [facility] #[id number], [address], [place], [id number], 2023 10:16:49 Patient TargetsNo targets recorded. Patient Instructions Encounter Date Encounter Id Patient Instructions Last Modified By Organization Details Last Modified Time 07/23/2019 [id number] body mass index: care instructions Not available 07/23/2019 16:35:53 learning about healthy weight Not available 07/23/2019 16:35:54 sleep apnea: car e instructions Not available 07/23/2019 16:35:53 Quitting Tobacco : Care Instructions Not available 07/23/2019 16:35:53 high blood pressure: care instructions Not available 07/23/2019 16:35:54 learning about high blood pressure Not available 07/23/2019 16:35:54 02/28/2021 [id number] body mass index: care instructions Not available 02/28/2021 15:07:37 learning about healthy weight Not available 02/28/2021 15:07:37 sleep apnea: car e instructions Not available 02/28/2021 15:07:37 high blood pressure: care instructions Not available 02/28/2021 15:07:37 learning about high blood pressure Not available 02/28/2021 15:07:37 06/27/2024 [id number] When You Want to Lose Weight: Care Instructions Not available 06/27/2024 09:24:03 high blood pressure: care instructions Not available 06/27/2024 09:24:03 learning about high blood pressure Not available 06/27/2024 09:24:03 Reason for Referral Sleep Medicine Referral for Obstructive sleep apnea syndrome Referring Physician: Heydi Ward, Internal Medicine, Encounter Date: 07/23/2019 Results Created Date Observation Date Name Description Value Unit Range Abnormal Flag Note LastModifiedBy Organization Detail LastModifiedTime 10/13/19 20 10/04/2019 home sleep study No observ ation record ed. [facility] [address] [place], [address], 10/14/2019 08:21:48 03/13/20 24 03/07/2024 US, abdom en, limit ed No observ ation record ed. [facility] (Medical Records) [address] [place], [address], 03/14/2024 08:57:05 04/01/20 24 03/15/2024 XR, chest , 2 view No observ ation record ed. [email or web address] [facility] (Medical Records) [address] [place], [address], 04/02/2024 08:45:45 05/14/20 24 05/13/2024 XR, abdom en + RF, upper gastr ointe aleida l tract , w/ air, w/ contr ast PO No observ ation record ed. [facility] (Medical Records) [address] [place], [address], 05/14/2024 16:29:08 06/24/20 24 06/24/2024 XR, wrist No observ ation record ed. [email or web address] [facility] (Medical Records) [address] [place], [address], 06/24/2024 15:14:28 06/24/20 24 06/24/2024 US, huma suarez s, extre mity, compl ete No observ ation record ed. [facility] (Medical Records) [address] [place], [address], 06/24/2024 12:18:01 Result Notes None recorded. Problems Name Problem SNOMED Code Status Onset Date Resolution Date Notes Provider Name and Address Organization Details Recorded Time Cellulitis 509573912 Active 2017 [facility] 08:15:14 Hypogonadi sm 53935120 Active 2017 [facility] 8 08:15:32 Essential hypertensi on 58270660 Active 2020 SORIN ARORA [address] [place] [address], [address], [facility] 1 12:15:43 Obesity 930767296 Active 2020 SORIN ARORA [address] [place] [address], [address], [facility] 1 12:15:50 Obstructiv e sleep apnea syndrome 02325639 Active 2020 Mika Hogue DO [address] [place] [address], [address], [facility] 1 15:03:05 Erectile dysfunctio n 718961785 Active 2022 SORIN ARORA [address] [place] [address], [address], [facility] 3 10:14:52 Acute gout 943978399 Active 2023 Mika Hogue DO [address] [place] [address], [address], [facility] 4 09:23:44 Problem Notes None recorded. Procedures Surgical History None recorded. Imaging Results Imaging Date Name Status LastModified by Organization Details LastModified Time 10/04/2019 home sleep study completed [facility] [address] [place], [address], 10/14/2019 08:21:48 03/07/2024 US, abdomen, limited completed [facility] (Medical Records) [address] [place], [address], 03/14/2024 08:57:05 03/15/2024 XR, chest, 2 view completed [email or web address] [facility] (Medical Records) [address] [place], [address], 04/02/2024 08:45:45 05/13/2024 XR, abdomen + RF, upper gastrointestinal tract, w/ air, w/ contrast PO completed [email or web address] [facility] (Medical Records) [address] [place], [address], 05/14/2024 16:29:08 06/24/2024 XR, wrist completed [email or web address] [facility] (Medical Records) [address] [place] [address], [address], 06/24/2024 15:14:28 06/24/2024 US, duplex, venous, extremity, complete completed [facility] (Medical Records) [address] [place], [address], 06/24/2024 12:18:01 Procedure Notes None recorded. Medical Equipment None Reported. Allergies Allergen ID Allergen Name Allergen Category Reaction Reaction Severity Criticality Documentation Date Start Date Code Code System Note Provider Name and Address Organization Details Recorded Time 2202 Zyvox medicatio n hives Not available Not available 03/06/2018 48614 0 RxNorm Winifred fraser [place] - [facility] 8 10:39:23 Medications Name [...] Address Organization Details Last Updated DateTime 0 447714. 49 g 78 /min 97 % 97 % 47.5 kg/m2 170.18 cm 112 mm[Hg] 80 mm[Hg] [facility] 0 16:15:45 Date Recorded Body weight Heart rate Oxygen saturation Oxygen saturation in Arterial blood by Pulse oximetry Systolic blood pressure Diastolic blood pressure Provider Name and Address Organization Details Last Updated DateTime 1 183372. 6 g 78 /min 97 % 97 % 124 mm[Hg] 80 mm[Hg] [facility] 1 11:52:44 Date Recorded Body weight Body mass index (BMI) Body height Heart rate Oxygen saturation Oxygen saturation in Arterial blood by Pulse oximetry Systolic blood pressure Diastolic blood pressure Provider Name and Address Organization Details Last Updated DateTime 1 852049. 02 g 37.7 kg/m2 201.93 cm 81 /min 98 % 98 % 130 mm[Hg] 70 mm[Hg] Mika Hogue, DO [address] [place], [address] 1 14:37:55 Date Recorded Body weight Body mass index (BMI) Body height Heart rate Oxygen saturation Oxygen saturation in Arterial blood by Pulse oximetry Systolic blood pressure Diastolic blood pressure Provider Name and Address Organization Details Last Updated DateTime 3 610716. 07 g 47.5 kg/m2 177.8 cm 87 /min 97 % 97 % 142 mm[Hg] 72 mm[Hg] SORIN ARORA [address] [place], [address], [facility] 3 10:03:32 Date Recorded Body height Body mass index (BMI) Body weight Heart rate Oxygen saturation Oxygen saturation in Arterial blood by Pulse oximetry Systolic blood pressure Diastolic blood pressure Provider Name and Address Organization Details Last Updated DateTime 4 177.8 cm 40.9 kg/m2 514385. 83 g 64 /min 99 % 99 % 118 mm[Hg] 70 mm[Hg] Ricardo Rees [facility] 4 09:06:22 Social History Question Answer Notes LastModified by Organizat ion Details LastModified Time Tobacco Smoking Status Current Some Day Smoker cigar Winifred fraser [facility] 08/24/2020 11:51:00 What Was The Date Of Your Most Recent Tobacco Screening? 06/27/2024 [email or web address] Information not available 06/27/2024 Sex: Unknown Functional Status None recorded. Mental Status None recorded. Family History Nothing Reported. Medical History No medical history recorded. Immunizations Vaccine Type Date Status Note Provider Nam e and Address Organization Details Recorded Time SARS-COV-2 (COVID-19) vaccine, UNSPECIFIED 10/14/2020 completed Dori fraser [facility] 11/17/2020 10:25:42 Past Encounters Encounter ID Performer Location Encounter Start Date Encounter Closed Date Diagnosis/Indication Diagnosis SNOMED-CT Code Diagnosis ICD10 Code Diagnosis Note [id number] October THEO Ward [facility] [address],[place] [address] 03/06/2018 10:30:00 03/06/2018 14:47:23 Pain of left shoulder joint 7757994014 2041970 M25.512 [id number] [facility] [address] [place], [place] [address] [address] 03/12/2018 14:22:57 03/12/2018 15:33:12 Pain of left shoulder joint 9381060754 4906804 M25.512 significan t improvemen t return to work note [id number] [facility] [address] [place] [address] [place] [address] 05/07/2019 09:45:23 05/07/2019 10:10:25 Body mass index 40+ - severely obese 485785929 Z68.41 had lost weight htne gradually gained it back Essential hypertension 69174009 I10 diet exercise reinforced Tobacco user 005928690 Z 72.0 5-6 cigars per year Screening procedure 2012 5006 Z13.9 Screening for malignant neoplasm of prostate 221896202 Z12.5 [id number] [facility] [address] [place] [address],[place] [facility] [place] [address] 07/23/2019 16:08:50 07/23/2019 16:44:12 Body mass index 40+ - severely obese 660317258 Z68.41 had lost weight then gradually gained it back Essential hypertension 55922324 I10 well controlled with lisinopril Tobacco user 239966709 Z 72.0 5-6 cigars per year Obstructiv e sleep apnea syndrome 90308908 G47.33 [id number] SORIN ARORA [facility] [address] [place] [address],[place] [address] 08/24/2020 11:36:47 08/24/2020 13:31:26 Essential hypertension 54179561 I10 BP is excellent today Obesity 558173887 E66.9 weight stable, will continue to stress diet and exercise Active or passive immunization 111160875 Z23 will have patient go for Tdap Booster [id number] Mika Hogue DO [facility] [address] [place] [address],[place] [address] 02/28/2021 14:21:49 02/28/2021 15:37:08 Active or passive immunization 054522134 Z23 Adult [facility] th examination 593937839 Z00.01 [address] [place] [address] (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 MUST MEET 2 OUT OF 3 ELEMENTS: PROBLEMS, DATA OR RISK ELEMENT 1: PROBLEMS ADDRESSED 1 OR MORE CHRONIC ILLNESS WITH EXACERBATI ON OR 2 OR MORE STABLE CHRONIC ILLNESSES OR 1 UNDIAGNOSE D NEW PROBLEM OR 1 ACUTE ILLNESS W/SYMPTOMS OR 1 ACUTE COMPLICATE D INJURY ELEMENT 2: DATA MUST MEET 1 OF 3 CATEGORIES CATEGORY 1: REVIEW OF PRIOR EXTERNAL NOTES, REVIEW OF RESULTS, ORDERING OF EACH TEST, ASSESSMENT REQUIRING INDEPENDEN T HISTORIAN OR CATEGORY 2: INDEPENDEN T INTERPRETA TION OF TESTS BY ANOTHER PHYSICIAN OR SPECIALIST OR CATEGORY 3: DISCUSSION OF MGT OR TEST INTERPRETA TION W/EXTERNAL PHYSICIAN OR SPECIALIST ELEMENT 3: RISK RISK OF COMPLICATI ONS AND/OR MORBIDITY OR MORTALITY OF PATIENT MANAGEMENT PROVIDER MUST THOROUGHLY DOCUMENT EACH ELEMENT THAT IS COVERED Body mass index 40+ - severely obese 269152903 Z68.41 long detailed discussion Hypogonadism 47029216 E2 9.1 we will rechk the lab Essential hypertension 05256965 I10 will chk usual labwe will then hold the losartan after he finsihes the current 90 day rx in late may then we will have him chk bp at home and see him after holidays Obstructiv e sleep apnea syndrome 92042540 G47.33 doing every night [id number] SORIN ARORA [facility] [address],[place] [address] 2023 09:59:42 2023 10:35:02 Obstructive sleep apnea syndrome 08927764 G47.33 stable Essential hypertension 11906750 I10 BP is excellent today Hypogonadism 41172318 E2 9.1 stable Erectile dysfunction 860 683680 N52.8 will start on viagra and see how he fares on the lower dose Body mass index 40+ - severely obese 914359246 Z68.41 down in weight [id number] Mika Hogue DO [facility] [address] [facility] [address],[place] [address] 06/27/2024 08:58:15 06/27/2024 09:38:43 Depression screening 024443361 Z13.31 neg Essential hypertension 84713261 I10 will chk usual labwe will then hold the losartan after he finsihes the current 90 day rx in late may then we will have him chk bp at home and see him after holidays Hypogonadism 87877367 E2 9.1 we will rechk the lab Obesity 281959562 E66.9 dropped 70 lbs and will be going for bariatric surg in aug Acute gout 273096376 M10 .00 Health Concerns Section Related Observation LastModified by Organization Detai ls LastModified Time None Recorded Concern Status LastModified by Organization Details LastModified Time None Recorded Advance Directives Directive None Recorded Payers Encounter Date Sequence Insurance Name Policy Number Policy Valadez Covered Member ID Valadez Member ID Guarantor Name 07/23/2019 1 CRYSTAL: FRANKY (PPO) [id number] Miguel Beasley [id number] Miguel Beasley 08/24/2020 1 [facility] [id number] Miguel Beasley [id number] Miguel Beasley 02/28/2021 1 [facility] [id number] Miguel Beasley [id number] Miugel Beasley 2023 1 [facility] [id number] Miguel Beasley [id number] Miguel ZuñigaCancharline 06/27/2024 1 [facility] [id number] Miguel Beasley [id number] Miguel Beasley Notes Date Note Type Note Provider Name a nd Address Organization Details Recorded Time 0 text/html 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 THEO Guillermo [address] [place] [address], [place], [address], [facility] 07/23/2019 16:40:01 1 text/html BP [...] otherwise no concerns today SORIN ARORA [address] [place], [address], [facility] 08/24/2020 18:05:26 1 text/html Annual [...] loss of hearing Vision:no vision problems Mika Hogue DO [address] [place], [address], [facility] 02/28/2021 15:11:54 3 text/html medication [...] BMI: down in weight SORIN ARORA [address] [place], [address], [facility] 2023 10:20:23 4 text/html here for rechk and is feeling well relates that he has lost 70lbs through the [facility] loss prog !!!! also has had a recent attack of severe inflammatory arthritiswhich certainly sounds like an acute gout attack Mika Hogue, DO [address] [facility], [place], [address], [facility] 06/27/2024 09:25:43
[2024-07-15 08:25] LABS: Alanine Aminotransferase 22 U/L (0-40); Albumin Level 3.8 g/dL (3.5-5.0); Alkaline Phosphatase 94 U/L (39-117); Anion Gap 11 (12-20); Aspartate Amino Transferase 27 U/L (5-37); Bilirubin Total 0.5 mg/dL (0.0-1.0); Blood Urea Nitrogen 18 mg/dL (9-16); Calcium 9.7 mg/dL (8.4-10.2); Carbon Dioxide 24 mmol/L (22-29); Chloride 109 mmol/L (96-108); Estimated Glomerular Filt Rate > 60; Glucose Random 98 mg/dL (60-115); Sodium 140 mmol/L (135-145); Total Protein 7.3 g/dL (6.5-8.0)
[2024-07-15 08:38] LABS: Prostate Specific Antigen 3.77 ng/mL (<0.05-4.0)
[2024-07-20 16:03] LABS: Testosterone, Total 417 ng/dL (250-1100)
== END 2024-07-15 06:13 | disposition home or self-care (01) ==
LOC: HO.LAB 06:12
PROVIDERS: PCP Internal Medicine; Visit Provider Internal Medicine
DX: I10 Essential (primary) hypertension (principal); E29.1 Testicular hypofunction; M10.00 Idiopathic gout, unspecified site; Z12.5 Encounter for screening for malignant neoplasm of prostate
CPT/HCPCS: 36415; 80053; 84153; 84403; 84550

== ENCOUNTER → 2024-07-25 09:28 | Outpatient (REF) | payer OTHER, SELFPAY ==
--- NOTE | ~2024-07-25 | NM_ITS ---
EXERCISE MYOCARDIAL PERFUSION STUDY INDICATION: Abnormal EKG TECHNIQUE: The patient was brought in for an exercise perfusion study on July 25, 2024. Patient performed exercise as per Bharat protocol and was injected 40 mCi of sestamibi once target heart rate was achieved. Images were obtained using the SPECT gamma camera interlaced with the gating device. Images were obtained in supine position. Resting perfusion study was performed on July 28, 2024. Patient was administered 40 mCi of sestamibi intravenously at rest. Images were then obtained in supine position. Images obtained with and without CT attenuation. Total DLP 155 mGy-cm. Images were processed with the software and compared side to side in short axis, horizontal long axis and vertical long axis views. FINDINGS: Raw images were reviewed The stress perfusion study showed non attenuated images show mildly reduced uptake in the mid and apical inferior, inferolateral as well as inferoseptal wall of the LV myocardium. There is moderately to severely reduced uptake in the basal inferior wall of the LV myocardium. Attenuated corrected images show mildly reduced uptake in the apex of the LV myocardium.. The gated study shows normal LV systolic function with calculated LVEF of 50%. LV cavity is normal in size. The gated study shows normal systolic wall thickening and contraction of segments. Resting study shows nonattenuated images show mildly improved uptake in the apical and midportion of the inferolateral wall of the LV myocardium. Remainder of the LV myocardium is normally perfused. Attenuation corrected images show mildly reduced uptake in the septum as well as inferoseptum and moderately reduced uptake in the apex of the LV myocardium.. Gating at rest reveals normal systolic wall motion with ejection fraction at 54%. The findings are consistent with cysome st equivocal finding of some reversibility noted on nonrotated images which is not noted on attenuated corrected images, are most likely suggest wall shifting attenuation artifact of the inferior wall that likely normal myocardial perfusion. NM/NM mazin perf SPECT rest & str IMPRESSION: 1. Myocardial perfusion imaging study shows likely normal myocardial perfusion. 2. Gated LVEF is 54%. 3. Transient ischemic dilatation not present. EKG revealed negative for ischemia. . Electronically signed by: Bud Pizarro MD 07/28/2024 04:49 PM [facility] [place]
--- NOTE | 2024-07-25 09:30 | CA_ITS ---
Acquisition Time: 2024-07-25 09:41:50 Total Exercise Time: 00:10:11 Test Indications: Abnormal ECG Medications: LOSARTAN ASA Protocol: BENJI Max HR: 160 BPM 101% of Pred: 158 BPM Max BP: 172/84 mmHG Max Work Load: 12.0 METS Exercise Stress Test with exercise 10 mins 11 secs of Benji Protocol, achieving 99% MPHR, with reports of mild SOB, no chest discomfort, with isolated PVCs, with normotensive response to exercise. Without EKG changes meeting criteria for ischemia. In recovery, breathing returned to baseline. Nuclear images pending. Test reviewed with Dr. Trejo. Referred By: Henri Choi Electronically Signed By: Chapin Recio
== END ==
LOC: HO.CARD 09:28
PROVIDERS: PCP Internal Medicine; Visit Provider Surgery
DX: R94.31 Abnormal electrocardiogram [ECG] [EKG] (principal)
CPT/HCPCS: 78452; 93017; A9500

== ENCOUNTER → 2024-07-25 09:30 | Outpatient (BNV) | payer OTHER, SELFPAY | PROVIDERS: PCP Internal Medicine | DX: I49.3 Ventricular premature depolarization (principal); R06.02 Shortness of breath | CPT/HCPCS: 78452; 93016; 93018 ==

== ENCOUNTER 2024-08-11 08:56 | Outpatient (AMB) | payer OTHER, SELFPAY ==
--- OUTSIDE RECORDS SUMMARY | 2024-08-11 09:14 | XMS_ITS | Clinical Summary ---
Author Organization [facility] Address [address] [place] [address] Care Team Providers Care Medical Art Therapist Name Role Phone Unavailable Primary Care Provider Unavailabl e Allergies Active Allergy Reactions Criticality Noted Date Comments Linezolid Other (See Comments) 04/05/2018 Medications Medication Sig Dispensed Refills Start Date End Date Status aspirin enteric coated (aspirin enteric coated) 81 MG EC tablet Take 81 mg by mouth. Active losartan (COZAAR) 50 MG tablet Take 50 mg by mouth daily. 05/17/2021 Active Social History Tobacco Use Types Packs/Day Years Used Date Smoking Tobacco: Never Assessed Sex and Gender Information Value Date Recorded Sex Assigned at Not on file Gender Identity Not on file Sexual Orientation Not on file Last Filed Vital Signs Vital Sign Reading Time Taken Comments Blood Pressure 129/82 07/05/2021 4:07 PM EST Pulse 76 07/05/2021 4:07 PM EST Temperature 36.7 ??C (98.1 ??F) 07/05/2021 4:07 PM ES T Respiratory Rate - - Oxygen Saturation 98% 07/05/2021 4:07 PM EST Inhaled Oxygen Concentration - - Weight - - Height - - Body Mass Index - - Plan of Treatment Health Maintenance Due Date Last Done Comments Hepatitis C Virus Screening 1962 HIV Screening 1975 DTaP/Tdap/Td Vaccines (1 - Tdap) 1981 Colonoscopy 2007 Pneumococcal Vaccines 50+ (1 of 1 - PCV) 2012 Zoster (Shingles) Vaccine (1 of 2) 2012 Influenza Vaccine 02/07/2024 COVID-19 Vaccine (1 - 2023-2 5 season) 2024 RSV Vaccine 60 years and old er and Patients (1 - 1-dose 75+ series) 2037 Hepatitis B Vaccines Aged Out No long er eligible based on patient's age to complete this topic Pneumococcal Vaccine: Pediat bushra (0-5 Years) and At-Risk Patients (6 to 49 Years) Aged Out No longer eligible b ased on patient's age to complete this topic
--- OUTSIDE RECORDS SUMMARY | 2024-08-11 09:14 | XMS_ITS | Data Portability ---
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) MDM MODERATE MUST MEET 2 OUT OF [...] Time Details Appointments FOLLOW UP 15 2024 03:30P M DR HOGUE Not available Not available Not available Lab lipid panel, serum 2019 [email or web address] Not available 07/23/2019 16:48:53 CMP, serum or plasma 2019 020 [email or web address] Not available 07/23/2019 16:48:54 CMP, serum or plasma 2020 021 MERLIN Not available 03/02/2021 15:32:15 CBC 2020 021 MERLIN Not available 03/02/2021 14:42:52 lipid panel, blood 2020 021 MERLIN Not available 03/02/2021 15:32:15 PSA, serum or plasma 2020 021 MERLIN Not available 03/02/2021 15:03:28 testoster one, total, serum 2020 021 MERLIN Not available 03/02/2021 16:18:15 CMP, serum or plasma 2023 024 MERLIN Not available 07/16/2024 12:44:50 PSA, serum or plasma 2023 024 Not available 06/27/2024 09:29:02 testoster one, total, serum 2023 024 MERLIN Not available 07/21/2024 11:26:33 uric acid, serum or plasma 2023 024 Not available 06/27/2024 09:29:02 Referral sleep medicine referral 2019 [facility], [address] [place] [address], [place], [address], 07/25/2019 09:37:40 Procedures None recorded. Surgeries None recorded. Imaging None recorded. Medication Orders lisinopri l 10 mg tablet 2019 [facility] #[id number], [address] [facility], [place], [place], [id number], 06/21/2020 08:32:04 losartan 50 mg tablet 2020 021 [facility] #[id number], [address] [place], [place], [id number], 08/24/2020 12:10:00 sildenafi l 25 mg tablet 2022 023 [facility] #[id number], [address] [place], [place], [id number], 2023 10:16:49 Patient TargetsNo targets recorded. Patient Instructions Encounter Date Encounter Id Patient Instructions Last Modified By Organization Details Last Modified Time 07/23/2019 [id number] body mass index: care instructions Not available 07/23/2019 16:35:53 learning about healthy weight Not available 07/23/2019 16:35:54 sleep apnea: car e instructions Not available 07/23/2019 16:35:53 Quitting Tobacco : Care Instructions Not available 07/23/2019 16:35:53 high blood pressure: care instructions Not available 07/23/2019 16:35:54 learning about high blood pressure Not available 07/23/2019 16:35:54 02/28/2021 [id number] body mass index: care instructions Not available 02/28/2021 15:07:37 learning about healthy weight Not available 02/28/2021 15:07:37 sleep apnea: car e instructions Not available 02/28/2021 15:07:37 high blood pressure: care instructions Not available 02/28/2021 15:07:37 learning about high blood pressure Not available 02/28/2021 15:07:37 06/27/2024 [id number] When You Want to Lose Weight: Care [...] sleep study No observ ation record ed. [facility] [address] [place], [address], 10/14/2019 08:21:48 03/13/20 24 03/07/2024 US, abdom en, limit ed No observ ation record ed. [facility] (Medical Records) [address] [place], [address], 03/14/2024 08:57:05 04/01/20 24 03/15/2024 XR, chest , 2 view No observ ation record ed. [email or web address] [facility] (Medical Records) [address] [place], [address], 04/02/2024 08:45:45 05/14/20 24 05/13/2024 XR, abdom en + RF, upper gastr ointe aleida l tract , w/ air, w/ contr ast PO No observ ation record ed. [facility] (Medical Records) [address] [place], [address], 05/14/2024 16:29:08 06/24/20 24 06/24/2024 XR, wrist No observ ation record ed. [email or web address] [facility] (Medical Records) [address] [place], [address], 06/24/2024 15:14:28 06/24/20 24 06/24/2024 US, hmua suarez s, extre mity, compl ete No observ ation record ed. [facility] (Medical Records) [address] [place], [address], 06/24/2024 12:18:01 07/28/19 25 07/25/2024 NM, myoca rdial perfu leslie scan No observ ation record ed. [facility] (Medical Records) [address] [place], [address], 07/29/2024 08:29:57 07/28/19 25 07/25/2024 NM, myoca rdial perfu leslie scan, w/ stres s No observ ation record ed. [facility] (Medical Records) [address] [place], [address], 07/29/2024 08:30:35 Result Notes None recorded. Problems Name Problem SNOMED Code Status Onset Date Resolution Date Notes Provider Name and Address Organization Details Recorded Time Cellulitis 443198149 Active 2017 leg Winifred fraser [facility] 8 08:15:14 Hypogonadi sm 42547225 Active 2017 Winifred fraser [facility] 8 08:15:32 Essential hypertensi on 33832538 Active 2020 SORIN ARORA [address] [place] [address], [address], [facility] 1 12:15:43 Obesity 300734818 Active 2020 SORIN ARORA [address] [place] [address], [address], [facility] 1 12:15:50 Obstructiv e sleep apnea syndrome 28536244 Active 2020 Mika Hogue DO [address] [place], [address], [facility] 1 15:03:05 Erectile dysfunctio n 181123159 Active 2022 SORIN ARORA [address] [place] [address], [address], [facility] 3 10:14:52 Acute gout 272121603 Active 2023 Mika Hogue, DO [address] [facility], [place], [address], [place] [facility] 4 09:23:44 Gout 37900242 Active 2024 Mika Hogue, DO [address] [facility], [place], [address], [place] [facility] 5 15:16:54 Problem Notes None recorded. Procedures Surgical History None recorded. Imaging Results Imaging Date Name Status LastModified by Organization Details LastModified Time 10/04/2019 home sleep study completed [facility] [address] [place], [address], 10/14/2019 08:21:48 03/07/2024 US, abdomen, limited completed [facility] (Medical Records) [address] [place], [address], 03/14/2024 08:57:05 03/15/2024 XR, chest, 2 view [address] (Medical Records) [address] [place], [address], 04/02/2024 08:45:45 05/13/2024 XR, abdomen + RF, upper gastrointestinal tract, w/ air, w/ contrast PO completed [facility] (Medical Records) [address] [place], [address], 05/14/2024 16:29:08 06/24/2024 XR, wrist completed [facility] (Medical Records) [address] [place], [address], 06/24/2024 15:14:28 06/24/2024 US, duplex, venous, extremity, complete completed [address] (Medical Records) [address] [place], [address], 06/24/2024 12:18:01 07/25/2024 NM, myocardial perfusion scan completed [facility] (Medical Records) [address] [place], [address], 07/29/2024 08:29:57 07/25/2024 NM, myocardial perfusion scan, w/ stress completed [facility] (Medical Records) [address] [place], [address], 07/29/2024 08:30:35 Procedure Notes None recorded. Medical Equipment None Reported. Allergies Allergen ID Allergen Name Allergen Category Reaction Reaction Severity Criticality Documentation Date Start Date Code Code System Note Provider Name and Address Organization Details Recorded Time 2202 Zyvox medicatio n hives Not available Not available 03/06/2018 83328 0 RxNorm Winifred fraser [place] - [facility] 8 10:39:23 Medications Name Sig [...] Not Available Not Available No t Available allopurinol 100 mg tablet TAKE 1 TABLET BY [...] Not Available Not Available No t Available indomethaci n 50 mg capsule TAKE 1 CAPSULE BY MOUTH THREE TIMES DAILY FOR 7 DAYS active Not [...] Address Organization Details Last Updated DateTime 0 792032. 49 g 78 /min 97 % 97 % 47.5 kg/m2 170.18 cm 112 mm[Hg] 80 mm[Hg] [facility] 0 16:15:45 Date Recorded Body weight Heart rate Oxygen saturation Oxygen saturation in Arterial blood by Pulse oximetry Systolic blood pressure Diastolic blood pressure Provider Name and Address Organization Details Last Updated DateTime 1 012491. 6 g 78 /min 97 % 97 % 124 mm[Hg] 80 mm[Hg] [facility] 1 11:52:44 Date Recorded Body weight Body mass index (BMI) Body height Heart rate Oxygen saturation Oxygen saturation in Arterial blood by Pulse oximetry Systolic blood pressure Diastolic blood pressure Provider Name and Address Organization Details Last Updated DateTime 1 870442. 02 g 37.7 kg/m2 201.93 cm 81 /min 98 % 98 % 130 mm[Hg] 70 mm[Hg] Mika Hogue DO [address] [place], [address] [place] [address] Internal [facility] 1 14:37:55 Date Recorded Body weight Body mass index (BMI) Body height Heart rate Oxygen saturation Oxygen saturation in Arterial blood by Pulse oximetry Systolic blood pressure Diastolic blood pressure Provider Name and Address Organization Details Last Updated DateTime 3 746500. 07 g 47.5 kg/m2 177.8 cm 87 /min 97 % 97 % 142 mm[Hg] 72 mm[Hg] SORIN ARORA [address] [place], [address], [facility] 3 10:03:32 Date Recorded Body height Body mass index (BMI) Body weight Heart rate Oxygen saturation Oxygen saturation in Arterial blood by Pulse oximetry Systolic blood pressure Diastolic blood pressure Provider Name and Address Organization Details Last Updated DateTime 4 177.8 cm 40.9 kg/m2 120267. 83 g 64 /min 99 % 99 % 118 mm[Hg] 70 mm[Hg] Ricardo Rees [facility] 4 09:06:22 Social History Question Answer Notes LastModified by Organizat ion Details LastModified Time Tobacco Smoking Status Current Some Day Smoker cigar Winifred fraser [facility] 08/24/2020 11:51:00 What Was The Date Of Your Most Recent Tobacco Screening? 06/27/2024 [email or web address] Information not available 06/27/2024 Sex: Unknown Functional Status None recorded. Mental Status None recorded. Family History Nothing Reported. Medical History No medical history recorded. Immunizations Vaccine Type Date Status Note Provider Nam e and Address Organization Details Recorded Time SARS-COV-2 (COVID-19) vaccine, UNSPECIFIED 10/14/2020 completed Dori fraser [facility] 11/17/2020 10:25:42 Past Encounters Encounter ID Performer Location Encounter Start Date Encounter Closed Date Diagnosis/Indication Diagnosis SNOMED-CT Code Diagnosis ICD10 Code Diagnosis Note [id number] October [facility] [address] [place] [address],[place] [address] 03/06/2018 10:30:00 03/06/2018 14:47:23 Pain of left shoulder joint 0794944264 4480882 M25.512 [id number] October [facility] Medicine [address] [place] [address],[place] [address] 03/12/2018 14:22:57 03/12/2018 15:33:12 Pain of left shoulder joint 7214403289 9358904 M25.512 significan t improvemen t return to work note [id number] October [facility] Internal [address],[place] [address] 05/07/2019 09:45:23 05/07/2019 10:10:25 Body mass index 40+ - severely obese 498551307 Z68.41 had lost weight htne gradually gained it back Essential hypertension 43484680 I10 diet exercise reinforced Tobacco user 524745505 Z 72.0 5-6 cigars per year Screening procedure 2012 5006 Z13.9 Screening for malignant neoplasm of prostate 121382322 Z12.5 [id number] October THEO Ward [facility] Internal Medicine [address] [facility],[place] [address] 07/23/2019 16:08:50 07/23/2019 16:44:12 Body mass index 40+ - severely obese 776677247 Z68.41 had lost weight then gradually gained it back Essential hypertension 26267578 I10 well controlled with lisinopril Tobacco user 121572651 Z 72.0 5-6 cigars per year Obstructiv e sleep apnea syndrome 54264063 G47.33 [id number] SORIN ARORA [facility] [address] [facility],[place] [address] 08/24/2020 11:36:47 08/24/2020 13:31:26 Essential hypertension 88044096 I10 BP is excellent today Obesity 196110593 E66.9 weight stable, will continue to stress diet and exercise Active or passive immunization 041190748 Z23 will have patient go for Tdap Booster [id number] Mika Hogue DO [facility] Internal Medicine [address] [facility],[place] [address] 02/28/2021 14:21:49 02/28/2021 15:37:08 Active or passive immunization 225722367 Z23 Adult [facility] th examination 437360371 Z00.01 [address] [place] [address] (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) MDM MODERATE MUST MEET 2 OUT OF [...] Body mass index 40+ - severely obese 548165043 Z68.41 long detailed discussion Hypogonadism 61729542 E2 9.1 we will rechk the lab Essential hypertension 21657181 I10 will chk usual labwe will then hold the losartan after he finsihes the current 90 day rx in may then we will have him chk bp at home and see him after holidays Obstructiv e sleep apnea syndrome 00677533 G47.33 doing every night [id number] SORIN ARORA [facility] Medicine [address] [facility],[place] [address] 2023 09:59:42 2023 10:35:02 Obstructive sleep apnea syndrome 67158871 G47.33 stable Essential hypertension 13526197 I10 BP is excellent today Hypogonadism 11090030 E2 9.1 stable Erectile dysfunction 860 054381 N52.8 will start on viagra and see how he fares on the lower dose Body mass index 40+ - severely obese 865788713 Z68.41 down in weight [id number] Mika Hogue DO [facility] Medicine [address] [facility],[place] [address] 06/27/2024 08:58:15 06/27/2024 09:38:43 Depression screening 075219912 Z13.31 neg Essential hypertension 34941771 I10 will chk usual labwe will then hold the losartan after he finsihes the current 90 day rx in late may then we will have him chk bp at home and see him after holidays Hypogonadism 12451905 E2 9.1 we will rechk the lab Obesity 206754094 E66.9 dropped 70 lbs and will be going for bariatric surg in aug Acute gout 762968385 M10 .00 Health Concerns Section Related Observation LastModified by Organization Detai ls LastModified Time None Recorded Concern Status LastModified by Organization Details LastModified Time None Recorded Advance Directives Directive None Recorded Payers Encounter Date Sequence Insurance Name Policy Number Policy Valadez Covered Member ID Valadez Member ID Guarantor Name 07/23/2019 1 [employer]YSTAL: FRANKY (PPO) [id number] Miguel Beasley [id number] Miguel ZuñigaCancharline 08/24/2020 1 [facility] [id number] Miguel Beasley [id number] Miguel ZuñigaCancharline 02/28/2021 1 [facility] [id number] Miguel ZuñigaCancharline [id number] Miguel ZuñigaCancharline 2023 1 [facility] [id number] Miguel ZuñigaCancharline [id number] Miguel ZuñigaCancharline 06/27/2024 1 [facility] [id number] Miguel Beasley [id number] Miguel Beasley Notes Date Note Type Note [...] rashes, or nail changes. THEO Guillermo [address] [place], [address], [facility] 07/23/2019 16:40:01 1 [...] otherwise no concerns today SORIN ARORA [address] [place], [address], [facility] 08/24/2020 18:05:26 1 [...] hearing Vision:no vision problems Mika Hogue DO [address] [place] [address], [address], [facility] 02/28/2021 15:11:54 3 text/html medication check HTN: [...] stable BMI: down in weight SORIN ARORA [address] [place] [address], [address], [facility] 2023 10:20:23 4 text/html here for rechk and is feeling well relates that he has lost 70lbs through the [employer] [facility] wgt loss prog !!!! also has had a recent attack of severe inflammatory arthritiswhich certainly sounds like an acute gout attack Mika Hogue DO [address] [place], [address], [facility] 06/27/2024 09:25:43
[2024-08-11 12:43] VITALS: BMI 37.6
--- NOTE | 2024-08-11 12:43 | A.OFFVIS_ITS ---
VS Expanded 08/11/24 12:43 Height 5 ft 7 in Weight 240 lb 4 oz BMI 37.6 Body Fat % 40.9 Body Fat Mass 98.3 Fat Free Mass 142.2 Visceral Fat Rating 19 Body Water % 42.7 Body Water Mass 102.6 Basal Metabolic Rate/Score 1,761 Intake Visit Reasons: TV Pre Op LSG 08/26/24 Allergies dextrose 5 % in water [From ZYVOX] Allergy (Unknown, Verified 08/11/24 12:55) HIVES linezolid [From ZYVOX] Allergy (Unknown, Verified 08/11/24 12:55) HIVES Medication List - Last Reconciled 08/11/24 by Henri Choi MD allopurinol 300 mg PO DAILY losartan 50 mg PO Q OTHER DAY ondansetron 4 mg PO Q12H pantoprazole 40 mg PO DAILY polyethylene glycol 3350 17 grams PO DAILY sucralfate 10 mL PO BID thiamine HCl (vitamin B1) 100 mg PO DAILY 90 days HPI HPI TV Pre Op LSG 08/26/24: Details: Start time: 1pm, End time: 1.30pm I spent 25 minutes speaking with the patient on the phone plus an additional 5 minutes reviewing and updating records for a total of 30 minutes HPI Comments Details: Overall weight loss: 84lbs, or 25.6% TBWL Is doing 2 Optimum Nutrition shakes (1/2 scoop in almond milk), 2 Gatorade protein bars and one meal (8 forks of protein and 8 forks of salad of vegetables) Exercise: is doing treadmill x2/2k for 450-500 calories PFSH Medical History (Updated 08/11/24 @ 15:09 by Henri Choi MD) Obesity Gout Surgical History (Updated 07/25/24 @ 12:17 by Mae Fontaine RN) Hx of oral surgery Hx of colonoscopy Family History Family/Other No problems noted. Social History Are you a primary pharmacy care coordinator to a significant other at home: No Do you presently have visiting nurse or other home services: No Alcohol intake: current Alcohol intake frequency: a few times a month Alcohol type: beer Comment: weekends socially Patient Tobacco Use Status: Current someday Tobacco user Tobacco use type: Cigar Telehealth Telehealth Telehealth Platform: Telephone Location of provider rendering services: practice address Location of patient: address on file Patient Identification confirmed using: Name, : Yes Telehealth method: voice only Patient verbally consented to treatment: Yes Patient verbally consented to billing insurance company: Yes Patient informed of any privacy concerns related to visit: Yes Minutes spent on Phone/Video with Pt.: 30 Assessment & Plan Assessment & Plan (1) Obesity: Code(s): E66.9 - Obesity, unspecified Category: Medical Qualifiers: Obesity type: due to excess calories Obesity classification: adult class 2 (BMI 35 - 39.9) Serious obesity comorbidity presence: with serious comorbidity Body mass index: BMI 37.0-37.9 Qualified Code(s): E66.812 - Obesity, class 2; E66.01 - Morbid (severe) obesity due to excess calories; Z68.37 - Body mass index [BMI] 37.0-37.9, adult Plan: 1. Plan for lap sleeve gastrectomy. If diaphragmatic or ventral hernias are present at time of surgery, these will be repaired laparoscopically as well. I emphasized the importance of close follow-up, adherence to instructions and good communication. The surgery does not replace the need to change your lifestlyle which is the cause of the obesity problem. The surgery provides the motivation to try again to change your lifestyle, it reduces the appetite and make the transition to a better lifestyle easier and doubles the amount of weight you would lose compared to doing the lifestyle change without the surgery. You will need to be on a liquid diet with protein shakes for 2 weeks before surgery to maximize weight loss and boost your nutritional status to recover better from surgery and also for the first two weeks after surgery to let the stomach heal before we introduce other foods. After the first 2 weeks we will introduce protein bars and soft foods like scrambled eggs, cottage cheese and yogurt and after the 6th week will introduce meat, fish and cooked vegetables in small amounts. Over time you should be able to eat everything in small amounts. Side effects like nausea, vomiting, heartburn or abdominal pain are not common in the practice unless you are not following in the practice. This operation requires lifetime commitment to following in our practice and communication with me. You will much less weight and experience side effects if you don?t communicate or not following in the practice. Complications are rare and in our practice is about 1/10 of the national average. However, you can develop bleeding that may require transfusion (hasn?t happened for year in the practice), you may from complications (we did not have any deaths in the practice) and infections. Infections are usually a result of breakdown in communication or not understanding or following directions correctly. They are difficult to treat, they can happen during the first 6 weeks, they may require to be in the hospital for weeks or even months, not being able to eat by mouth and you may have drains and surgeries to try and correct the issue. Other risks and complications include possible conversion to an open procedure, leaks, small bowel obstruction, blood clots, cardiac, or pulmonary complications, as manager intermediate complications such as ulcers, insufficient weight loss and vitamin deficiencies. So far he has proven to be an excellent communicator and very compliant with all our directions accomplishing a great weight loss. I believe that he is an excellent candidate and he is ready. 3. Bowel prep: please do 7 packets of Miralax mixing each one with a an 8oz glass of water, crystal light, gatorade zero, or propel on 08/24/24 and the same amount on 08/25/24. The Miralax you begin with one packet at a time in 8oz water or crystal light, gatorade zero, or propel as early in the day as you can and you do them back to back until you finish them. Continue the protein shakes during the bowel prep. 4. Needs to purchase 1oz medicine cups . 5. Needs to purchase Children's liquid Tylenol for postop pain control. 6. Avoid aspirin, motrin, Advil, Aleve, Ibuprofen, Naproxyn. Tylenol is OK. 7. She needs to purchase the Celebrate 4:1 protein shakes from the hospital's gift shop. 8. Will do basic preop blood work-up any day between Sunday08/18/24 and Sunday08/23/24 fasting for 12 hours and is scheduled to see the Anesthesiologist prior to the day of surgery. 9. Importance of adherence to postop folllow-up and recommendations was underscored and he understands that. 10. Stop food and bars as of Sunday08/18/24 and continue with 3 Optimum Nutrition protein shakes (1/2 scoop in 8oz almond milk) at 7am-9am, 10am-12pm and 1pm-3pm and two more Optimum Nutrition protein shakes with ONE scoop in 8oz of almond milk at 4pm-6pm and 7pm-9pm. 11. No soups, broths or V8 12. The patient's medical history has been reviewed and they are considered low risk for post op DVT and therefore DVT prophylaxis is not considered necessary. Travel after surgery was reviewed. The patient has not disclosed any travel plans during the first 30 days after surgery and they have been advised that within the first 30 days after surgery any bus, plane, train or car travel over 2 hours in duration is contraindicated due to the possibility of developing blood clots from immobility. Any travel, needs to include periods of ambulation of 10 minutes in duration every 2 hours. Patient was instructed to discuss any plans for travel during this period with their bariatric surgeon. 13. Use your CPAP daily and bring it to the hospital with your mask 14. As of tomorrow, please check your blood pressure daily in the morning. If your blood pressure is: Below 120/70: do not take the Losartan 121/71 to 135/85: take HALF Losartan Over 136/86: take the whole Losartan 15. Please take at the day of surgery the following medications: Losartan if the blood pressure is high enough to meet the parameters above. 16. Absolutely no smoking or vaping, or marijuana until the surgery and for at least the first 4 weeks. Only nicotine patches are allowed. 17. Send me weight measurements on Sunday and 08/22/24 and then on Sunday08/26/24, the day of surgery before you go to the hospital. 18. Avoid any steroids by mouth for any reason. Let me know if someone prescribes them to you 19. These instructions supersede anything else you read in the handbook, anything you watched in videos or classes or you were told by any other provider. If there is any conflict, you follow the above instructions and nothing else. Orders: Orders TSH reflex Free T4 Today E66.9 - Obesity, unspecified, G47.33 - Obstructive sleep apnea (adult) (pediatric), I10 - Essential (primary) hypertension Prothrombin Time INR Today E66.9 - Obesity, unspecified, G47.33 - Obstructive sleep apnea (adult) (pediatric), I10 - Essential (primary) hypertension C Reactive Protein Today E66.9 - Obesity, unspecified, G47.33 - Obstructive sleep apnea (adult) (pediatric), I10 - Essential (primary) hypertension Lipid Panel Today E66.9 - Obesity, unspecified, G47.33 - Obstructive sleep apnea (adult) (pediatric), I10 - Essential (primary) hypertension Hemoglobin A1c Today E66.9 - Obesity, unspecified, G47.33 - Obstructive sleep apnea (adult) (pediatric), I10 - Essential (primary) hypertension Type and Screen Today E66.9 - Obesity, unspecified, G47.33 - Obstructive sleep apnea (adult) (pediatric), I10 - Essential (primary) hypertension Partial Thromboplastin Time Today E66.9 - Obesity, unspecified, G47.33 - Obstructive sleep apnea (adult) (pediatric), I10 - Essential (primary) hypertension Comprehensive Met. Panel Today E66.9 - Obesity, unspecified, G47.33 - Obstructive sleep apnea (adult) (pediatric), I10 - Essential (primary) hypertension Complete Blood Count Auto Diff Today E66.9 - Obesity, unspecified, G47.33 - Obstructive sleep apnea (adult) (pediatric), I10 - Essential (primary) hypertension Insulin Today E66.9 - Obesity, unspecified, G47.33 - Obstructive sleep apnea (adult) (pediatric), I10 - Essential (primary) hypertension Medications: New polyethylene glycol 3350 Mix each measuring cup with 8oz of water, Crystal light, or Gatorade zero, or Propel and do 7 measuring cups on 08/24/24 and another 7 measuring cups on 08/25/24 17 grams PO DAILY 238 grams 0RF Z01.818 - Encounter for other preprocedural examination pantoprazole 40 mg PO DAILY 90 tabs 0RF K21.9 - Gastro-esophageal reflux disease without esophagitis sucralfate 10 mL PO BID 600 mL 2RF K21.9 - Gastro-esophageal reflux disease without esophagitis ondansetron 4 mg PO Q12H 20 tabs 0RF nausea and vomiting R11.0 - Nausea
== END 2024-08-11 15:20 | disposition home or self-care (01) ==
LOC: HO.HBS 08:56
PROVIDERS: PCP Internal Medicine; Visit Provider Surgery
DX: E66.812 Obesity, class 2 (principal); E66.01 Morbid (severe) obesity due to excess calories; Z68.37 Body mass index [BMI] 37.0-37.9, adult
CPT/HCPCS: 99499

== ENCOUNTER 2024-08-26 06:19 | Inpatient (IN) | payer OTHER, SELFPAY ==
[2024-07-25 12:23] VITALS: BMI 38.2
[2024-08-19 06:50] LABS: MANUAL DIFF FLAG NO
[2024-08-19 07:28] LABS: Basophils Percent Auto 0.4 % (0-2); Eosinophils Absolute Auto 0.1 X10*3/uL (0.0-0.4); Eosinophils Percent Auto 1.7 % (0-4); Hematocrit 44.6 % (42.0-52.0); Imm Gran Abs Auto 0.03 X10*3/uL (0.00-0.03); Imm Gran Pct Auto 0.6 % (0.0-0.4); Lymphocytes Absolute Auto 1.4 X10*3/uL (1.2-4.9); Lymphocytes Percent Auto 25.8 % (20-40); Mean Corpuscular HGB Conc 33.6 g/dl (31.0-36.0); Mean Corpuscular Hemoglobin 30.7 pg (27.0-33.0); Mean Corpuscular Volume 91.2 fL (80.0-98.0); Mean Platelet Volume 10.4 fL (9.4-12.4); Monocytes Absolute Auto 0.6 X10*3/uL (0.1-1.2); Monocytes Percent Auto 10.3 % (2-11); Neutrophils Absolute Auto 3.3 x10*3/uL (2.0-8.3); Neutrophils Percent Auto 61.2 % (45-73); Platelet Count 234 X10*3/uL (160-400); Red Blood Count 4.89 X10*6/uL (4.60-5.80); Red Cell Distribution Width 13.2 % (11.0-16.0); White Blood Count 5.4 X10*3/uL (4.8-10.8)
[2024-08-19 07:34] LABS: Prothrombin Time 11.9 SEC (10.9-12.4)
[2024-08-19 07:37] LABS: Partial Thromboplastin Time 33.2 SEC (26.0-36.8)
[2024-08-19 07:38] LABS: Estimated Average Glucose 97 mg/dL; Hemoglobin A1C 123.6875 umol/L; Total Hemoglobin (HGBA1C) 3908.4755 umol/L
[2024-08-19 07:53] LABS: Alanine Aminotransferase 15 U/L (0-40); Albumin Level 3.9 g/dL (3.5-5.0); Alkaline Phosphatase 100 U/L (39-117); Anion Gap 10 (12-20); Aspartate Amino Transferase 27 U/L (5-37); Bilirubin Total 0.7 mg/dL (0.0-1.0); Blood Urea Nitrogen 16 mg/dL (9-16); C Reactive Protein 0.81 mg/dL (< or = 0.50); Calcium 9.4 mg/dL (8.4-10.2); Carbon Dioxide 26 mmol/L (22-29); Chloride 109 mmol/L (96-108); Cholesterol 176 mg/dL (<200); Creatinine Clr Calc Pharmacy 135.7; Estimated Glomerular Filt Rate > 60; Glucose Random 104 mg/dL (60-115); HDL Cholesterol 53 mg/dL (>40); LDL Cholesterol Calculated 109 mg/dL (<100); Sodium 141 mmol/L (135-145); Total Protein 7.4 g/dL (6.5-8.0); Triglycerides 74 mg/dL (<150)
[2024-08-19 08:19] LABS: TSH reflex Free T4 1.91 uIU/mL (0.32-4.0)
[2024-08-19 08:28] LABS: Insulin 6 uU/mL (2-29)
--- NOTE | 2024-08-21 14:08 | P.CONAN_ITS ---
Documented by User: Joanne Fontenot NP 08/21/24 14:10 HPI - Anesthesia Eval Consult details Narrative: 64yo M for Gastrectomy Sleeve - EGD, possible diaphragmatic hernia, possible ventral hernia, possible open PMFSH Active Problems Active Problems: All Active Problems BMI 37.0-37.9, adult (Acute) Obesity (Acute) Abnormal EKG (Acute) KIN on CPAP (Acute) HTN (hypertension) (Acute) Morbid obesity (Acute) Past Medical History Medical History (Updated 08/26/24 @ 07:40 by Henri Choi MD) Obesity Gout Family History Family History Family/Other No problems noted. Surgical History Surgical History S/P gastrectomy Hx of oral surgery Hx of colonoscopy Social History Social History (Updated 08/26/24 @ 08:41 by Mehreen Olivera MD) Are you a primary home care coordinator to a significant other at home: No Do you presently have visiting nurse or other home services: No Alcohol intake: current Alcohol intake frequency: a few times a month Alcohol type: beer Comment: weekends socially Patient Tobacco Use Status: Current someday Tobacco user Tobacco use type: Cigar Substance Use Type: Marijuana Meds Allergies Allergy/AdvReac Type Severity Reaction Status Date / Time linezolid [From ZYVOX] Allergy Mild HIVES Verified 08/26/24 06:19 Home Medications ?Medication ?Instructions ?Recorded ?Confirmed ?Last Taken ?Type losartan 50 mg tablet 25 mg PO Q OTHER DAY 01/09/24 08/26/24 08/25/24 History allopurinol 100 mg tablet 100 mg DAILY 08/26/24 08/26/24 Unknown History ascorbic acid (vitamin C) 250 mg 500 mg PO DAILY 08/26/24 08/26/24 Unknown History tablet multivitamin 1 tab PO DAILY 08/26/24 08/26/24 Unknown History Exam Height,Weight and Vital Signs: Height 5 ft 7 in Weight 110.767 kg Pertinent Lab Results Pertinent Lab Results: Laboratory Tests 08/19/24 08/19/24 06:38 06:48 WBC 5.4 RBC 4.89 Hgb 15.0 Hct 44.6 MCV 91.2 MCH 30.7 MCHC 33.6 RDW 13.2 Plt Count 234 MPV 10.4 Immature Gran % (Auto) 0.6 H Neut % (Auto) 61.2 Lymph % (Auto) 25.8 [place] % (Auto) 10.3 Eos % (Auto) 1.7 Baso % (Auto) 0.4 Lymph # (Auto) 1.4 [place] # (Auto) 0.6 Eos # (Auto) 0.1 Baso # (Auto) 0.0 Abs Immat Gran (auto) 0.03 Absolute Neuts (auto) 3.3 Absolute Nucleated RBC 0.000 Nucleated RBC % (auto) 0.0 PT 11.9 INR 1.0 APTT 33.2 Sodium 141 Potassium 4.0 Chloride 109 H Carbon Dioxide 26 Anion Gap 10 L BUN 16 Creatinine 0.67 Estim Creat Clear Calc 135.7 Estimated GFR > 60 Random Glucose 104 Estimat Average Glucose 97 Hemoglobin A1c % 5.0 Insulin Level 6 Calcium 9.4 Total Bilirubin 0.7 AST 27 ALT 15 Alkaline Phosphatase 100 C-Reactive Protein 0.81 H Total Protein 7.4 Albumin 3.9 Triglycerides 74 Cholesterol 176 LDL Cholesterol, Calc 109 H HDL Cholesterol 53 TSH 1.91 Blood Type A Positive Antibody Screen NEGATIVE Narrative Narrative: EKG 03/2024 Vent. Rate : 061 BPM Atrial Rate : 061 BPM P-R Int : 170 ms QRS Dur : 094 ms QT Int : 420 ms P-R-T Axes : -08 -09 -21 degrees QTc Int : 422 ms Normal sinus rhythm Minimal voltage criteria for LVH, may be normal variant ( R in aVL ) Borderline ECG No previous ECGs available ECHO 05/2024 Conclusions: - The left ventricular systolic function is normal. The calculated ejection fraction is 58% by biplane method. - There is moderate septal asymmetric hypertrophy. - No obvious valvular pathology seen on this study. Exercise Stress 07/2024 Protocol: BHARAT Max HR: 160 BPM 101% of Pred: 158 BPM Max BP: 172/84 mmHG Max Work Load: 12.0 METS Exercise Stress Test with exercise 10 mins 11 secs of Bharat Protocol, achieving 99% MPHR, with reports of mild SOB, no chest discomfort, with isolated PVCs, with normotensive response to exercise. Without EKG changes meeting criteria for ischemia. In recovery, breathing returned to baseline. Nuclear images pending. Test reviewed with Dr. Trejo. Assessment and Plan Assessment Anesthesia Assessment: Chart Reviewed Documented by User: Mehreen Olivera MD 08/26/24 08:42 HPI - Anesthesia Eval Consult details Narrative: 64yo M for EGD, Laparoscopic Sleeve Gastrectomy, possible diaphragmatic hernia repair, possible ventral hernia repair, possible open PMFSH Active Problems Active Problems: All Active Problems BMI 37.0-37.9, adult (Acute) Obesity (Acute) Abnormal EKG (Acute) KIN on CPAP (Acute) HTN (hypertension) (Acute) Morbid obesity (Acute) BMI 38.2 Past Medical History Medical History (Updated 08/26/24 @ 07:40 by Henri Choi MD) Obesity Gout Family History Family History Family/Other No problems noted. Family history of problems with anesthesia: No Surgical History Surgical History S/P gastrectomy Hx of oral surgery Hx of colonoscopy History of Problems with Anesthesia: No Social History Social History (Updated 08/26/24 @ 08:41 by Mehreen Olivera MD) Are you a primary home care coordinator to a significant other at home: No Do you presently have visiting nurse or other home services: No Alcohol intake: current Alcohol intake frequency: a few times a month Alcohol type: beer Comment: weekends socially Patient Tobacco Use Status: Current someday Tobacco user Tobacco use type: Cigar Substance Use Type: Marijuana Meds Allergies Allergy/AdvReac Type Severity Reaction Status Date / Time linezolid [From ZYVOX] Allergy Mild HIVES Verified 08/26/24 06:19 Home Medications ?Medication ?Instructions ?Recorded ?Confirmed ?Last Taken ?Type losartan 50 mg tablet 25 mg PO Q OTHER DAY 01/09/24 08/26/24 08/25/24 History allopurinol 100 mg tablet 100 mg DAILY 08/26/24 08/26/24 Unknown History ascorbic acid (vitamin C) 250 mg 500 mg PO DAILY 08/26/24 08/26/24 Unknown History tablet multivitamin 1 tab PO DAILY 08/26/24 08/26/24 Unknown History Exam Height,Weight and Vital Signs: Height 5 ft 7 in Weight 110.767 kg Vital Signs Temp Pulse Resp BP Pulse Ox O2 Del Method 08/26/24 06:37 97.6 F 73 16 130/79 97 Room Air Pertinent Lab Results Pertinent Lab Results: Laboratory Tests 08/19/24 08/19/24 06:38 06:48 WBC 5.4 RBC 4.89 Hgb 15.0 Hct 44.6 MCV 91.2 MCH 30.7 MCHC 33.6 RDW 13.2 Plt Count 234 MPV 10.4 Immature Gran % (Auto) 0.6 H Neut % (Auto) 61.2 Lymph % (Auto) 25.8 [place] % (Auto) 10.3 Eos % (Auto) 1.7 Baso % (Auto) 0.4 Lymph # (Auto) 1.4 [place] # (Auto) 0.6 Eos # (Auto) 0.1 Baso # (Auto) 0.0 Abs Immat Gran (auto) 0.03 Absolute Neuts (auto) 3.3 Absolute Nucleated RBC 0.000 Nucleated RBC % (auto) 0.0 PT 11.9 INR 1.0 APTT 33.2 Sodium 141 Potassium 4.0 Chloride 109 H Carbon Dioxide 26 Anion Gap 10 L BUN 16 Creatinine 0.67 Estim Creat Clear Calc 135.7 Estimated GFR > 60 Random Glucose 104 Estimat Average Glucose 97 Hemoglobin A1c % 5.0 Insulin Level 6 Calcium 9.4 Total Bilirubin 0.7 AST 27 ALT 15 Alkaline Phosphatase 100 C-Reactive Protein 0.81 H Total Protein 7.4 Albumin 3.9 Triglycerides 74 Cholesterol 176 LDL Cholesterol, Calc 109 H HDL Cholesterol 53 TSH 1.91 Blood Type A Positive Antibody Screen NEGATIVE Airway Mallampati Class: III (Slightly receding chin. Small mouth) TM Dist: >3cm Neck ROM: Full Loose/Missing/Broken Teeth: Yes (Missing tooth top back right and left) Heart: RRR Lungs: CTAB Assessment and Plan Assessment Anesthesia Assessment: Anesthesia Plan Discussed and Chart Reviewed Final Anesthetic Review Family History of Problems with Anesthesia: No History of Problems with Anesthesia: No NPO: Yes ASA Class: III Final Preanesthetic Review: No Changes in Pt Med Stat, Meds/Allgs Chart Reviewed, Consent Obtained/Reviewed and Anes Risks/Benef Reviewed Patient Risk: Intermediate Procedure Risk: Intermediate Assessment/Block/Sedation in SS: Assess/Block/Sedation-SS Anesthetic Plan Anesthetic Plan: GA Disposition: Standard PACU and Inp. Admit - Standard Bed
[2024-08-26] VITALS (17 sets, daily range): BP systolic 128–154; BP diastolic 65–86; PULSE 54–97; RESP 16–22; TEMP 36.1–36.9; O2SAT 56–99; BMI 35.8; BMI 38.9
--- OUTSIDE RECORDS SUMMARY | 2024-08-26 06:22 | XMS_ITS | Data Portability ---
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 MEET 2 OUT OF [...] Lab CMP, serum or plasma 2023 024 MERLIN Not available 07/16/2024 12:44:50 PSA, serum or plasma 2023 024 Not available 06/27/2024 09:29:02 testoster one, total, serum 2023 024 MERLIN Not available 07/21/2024 11:26:33 uric acid, serum or plasma 2023 024 Not available 06/27/2024 09:29:02 CMP, serum or plasma 2020 021 MERLIN Not available 03/02/2021 15:32:15 CBC 2020 021 MERLIN Not available 03/02/2021 14:42:52 lipid panel, blood 2020 021 MERLIN Not available 03/02/2021 15:32:15 PSA, serum or plasma 2020 021 MERLIN Not available 03/02/2021 15:03:28 testoster one, total, serum 2020 021 MERLIN Not available 03/02/2021 16:18:15 lipid panel, serum 2019 020 sbucko Not available 07/23/2019 16:48:53 CMP, serum or plasma 2019 020 sbucko Not available 07/23/2019 16:48:54 Referral sleep medicine referral 2019 020 [facility], [address] [place] [address] [address], [place], [address], 07/25/2019 09:37:40 Procedures None recorded. Surgeries None recorded. Imaging None recorded. Medication Orders sildenafi l 25 mg tablet 2022 023 [id number], [address] [facility], [place], [place], [phone], 2023 10:16:49 losartan 50 mg tablet 2020 021 [facility][id number], [address], [place], [phone], 08/24/2020 12:10:00 lisinopri l 10 mg tablet 2019 020 [id number], [address], [place], [phone], 06/21/2020 08:32:04 Patient TargetsNo targets recorded. Patient Instructions Encounter Date Encounter Id Patient Instructions Last Modified By Organization Details Last Modified Time 07/23/2019 [id number] body mass index: care instructions Not available 07/23/2019 16:35:53 learning about healthy weight Not available 07/23/2019 16:35:54 sleep apnea: car e instructions Not available 07/23/2019 16:35:53 Quitting Tobacco : Care Instructions Not available 07/23/2019 16:35:53 high blood pressure: care instructions Not available 07/23/2019 16:35:54 learning about high blood pressure Not available 07/23/2019 16:35:54 02/28/2021 [id number] body mass index: care instructions Not available 02/28/2021 15:07:37 learning about healthy weight Not available 02/28/2021 15:07:37 sleep apnea: car e instructions Not available 02/28/2021 15:07:37 high blood pressure: care instructions Not available 02/28/2021 15:07:37 learning about high blood pressure Not available 02/28/2021 15:07:37 06/27/2024 [id number] When You Want to Lose Weight: Care [...] sleep study No observ ation record ed. [facility] [address] [place], [address], 10/14/2019 08:21:48 03/13/20 24 03/07/2024 US, abdom en, limit ed No observ ation record ed. [facility] (Medical Records) [address] [place], [address], 03/14/2024 08:57:05 04/01/20 24 03/15/2024 XR, chest , 2 view No observ ation record ed. [email or web address] [facility] (Medical Records) [address] [place], [address], 04/02/2024 08:45:45 05/14/20 24 05/13/2024 XR, abdom en + RF, upper gastr ointe aleida l tract , w/ air, w/ contr ast PO No observ ation record ed. [facility] (Medical Records) [address] [place], [address], 05/14/2024 16:29:08 06/24/20 24 06/24/2024 XR, wrist No observ ation record ed. [email or web address] [facility] (Medical Records) [address] [place], [address], 06/24/2024 15:14:28 06/24/20 24 06/24/2024 US, huma suarez s, extre mity, compl ete No observ ation record ed. [facility] (Medical Records) [address] [place], [address], 06/24/2024 12:18:01 07/28/19 25 07/25/2024 NM, myoca rdial perfu leslie scan No observ ation record ed. [facility] (Medical Records) [address] [place], [address], 07/29/2024 08:29:57 07/28/19 25 07/25/2024 NM, myoca rdial perfu leslie scan, w/ stres s No observ ation record ed. [facility] (Medical Records) [address] [place], [address], 07/29/2024 08:30:35 Result Notes None recorded. Problems Name Problem SNOMED Code Status Onset Date Resolution Date Notes Provider Name and Address Organization Details Recorded Time Cellulitis 010721985 Active 2017 leg Winifred fraser [facility] 8 08:15:14 Hypogonadi sm 23771939 Active 2017 Winifred fraser [facility] 8 08:15:32 Essential hypertensi on 62890620 Active 2020 SORIN ARORA [address] [place] [address], [address], [facility] 1 12:15:43 Obesity 964665247 Active 2020 SORIN ARORA [address] [place] [address], [address], [facility] 1 12:15:50 Obstructiv e sleep apnea syndrome 95447008 Active 2020 Mika Hogue DO [address] [place], [address], [facility] 1 15:03:05 Erectile dysfunctio n 983858132 Active 2022 SORIN ARORA [address] [place] [address], [address], [facility] 3 10:14:52 Acute gout 474003130 Active 2023 Mika Hogue, DO [address] [facility], [place], [address], [place] [facility] 4 09:23:44 Gout 46178197 Active 2024 iMka Hogue, DO [address] [facility], [place], [address], [place] [facility] 5 15:16:54 Problem Notes None recorded. Procedures Surgical History None recorded. Imaging Results Imaging Date Name Status LastModified by Organization Details LastModified Time 10/04/2019 home sleep study completed [facility] [address] [place], [address], 10/14/2019 08:21:48 03/07/2024 US, abdomen, limited completed [facility] (Medical Records) [address] [place], [address], 03/14/2024 08:57:05 03/15/2024 XR, chest, 2 view completed [address] (Medical Records) [address] [place], [address], 04/02/2024 08:45:45 05/13/2024 XR, abdomen + RF, upper gastrointestinal tract, w/ air, w/ contrast PO completed [facility] (Medical Records) [address] [place], [address], 05/14/2024 16:29:08 06/24/2024 XR, wrist completed [facility] (Medical Records) [address] [place], [address], 06/24/2024 15:14:28 06/24/2024 US, duplex, venous, extremity, complete completed [address] (Medical Records) [address] [place], [address], 06/24/2024 12:18:01 07/25/2024 NM, myocardial perfusion scan completed [facility] (Medical Records) [address] [place], [address], 07/29/2024 08:29:57 07/25/2024 NM, myocardial perfusion scan, w/ stress completed [facility] (Medical Records) [address] [place], [address], 07/29/2024 08:30:35 Procedure Notes None recorded. Medical Equipment None Reported. Allergies Allergen ID Allergen Name Allergen Category Reaction Reaction Severity Criticality Documentation Date Start Date Code Code System Note Provider Name and Address Organization Details Recorded Time 2202 Zyvox medicatio n hives Not available Not available 03/06/2018 93379 0 RxNorm Winifred fraser [place] - [facility] 8 10:39:23 Medications Name Sig Start Date Stop Date Status Note LastModified by Organization Details LastModified Time benzonatate 100 mg caps 07/23 completed Not Available Not Available Not Available methylpredn isolone dose pack 4 mg tbpk 03/12 completed Not Available Not Available Not Available lisinopril 10 mg tabs 07/23 completed Not Available Not Available Not Available b-1 100 mg tabs active Not Available Not Available Not Available losartan [...] Address Organization Details Last Updated DateTime 0 758955. 49 g 78 /min 97 % 97 % 47.5 kg/m2 170.18 cm 112 mm[Hg] 80 mm[Hg] [facility] 0 16:15:45 Date Recorded Body weight Heart rate Oxygen saturation Oxygen saturation in Arterial blood by Pulse oximetry Systolic blood pressure Diastolic blood pressure Provider Name and Address Organization Details Last Updated DateTime 1 903533. 6 g 78 /min 97 % 97 % 124 mm[Hg] 80 mm[Hg] [facility] 1 11:52:44 Date Recorded Body weight Body mass index (BMI) Body height Heart rate Oxygen saturation Oxygen saturation in Arterial blood by Pulse oximetry Systolic blood pressure Diastolic blood pressure Provider Name and Address Organization Details Last Updated DateTime 1 685891. 02 g 37.7 kg/m2 201.93 cm 81 /min 98 % 98 % 130 mm[Hg] 70 mm[Hg] Mika Hogue DO [address] [place], [address] [place] [address] Internal [facility] 1 14:37:55 Date Recorded Body weight Body mass index (BMI) Body height Heart rate Oxygen saturation Oxygen saturation in Arterial blood by Pulse oximetry Systolic blood pressure Diastolic blood pressure Provider Name and Address Organization Details Last Updated DateTime 3 811551. 07 g 47.5 kg/m2 177.8 cm 87 /min 97 % 97 % 142 mm[Hg] 72 mm[Hg] SORIN ARORA [address] [place], [address], [facility] 3 10:03:32 Date Recorded Body height Body mass index (BMI) Body weight Heart rate Oxygen saturation Oxygen saturation in Arterial blood by Pulse oximetry Systolic blood pressure Diastolic blood pressure Provider Name and Address Organization Details Last Updated DateTime 4 177.8 cm 40.9 kg/m2 937719. 83 g 64 /min 99 % 99 % 118 mm[Hg] 70 mm[Hg] Ricardo Rees [facility] 4 09:06:22 Social History Question Answer Notes LastModified by Organizat ion Details LastModified Time Tobacco Smoking Status Current Some Day Smoker cigar Winifred fraser [facility] 08/24/2020 11:51:00 What Was The Date Of Your Most Recent Tobacco Screening? 06/27/2024 [email or web address] Information not available 06/27/2024 Sex: Unknown Functional Status None recorded. Mental Status None recorded. Family History Nothing Reported. Medical History No medical history recorded. Immunizations Vaccine Type Date Status Note Provider Nam e and Address Organization Details Recorded Time SARS-COV-2 (COVID-19) vaccine, UNSPECIFIED 10/14/2020 completed Dori fraser [facility] 11/17/2020 10:25:42 Past Encounters Encounter ID Performer Location Encounter Start Date Encounter Closed Date Diagnosis/Indication Diagnosis SNOMED-CT Code Diagnosis ICD10 Code Diagnosis Note [id number] October [facility] [address] [place] [address],[place] [address] 03/06/2018 10:30:00 03/06/2018 14:47:23 Pain of left shoulder joint 0820861039 2152867 M25.512 [id number] October [facility] [address] [place] [address],[place] [address] 03/12/2018 14:22:57 03/12/2018 15:33:12 Pain of left shoulder joint 3906520331 4244386 M25.512 significan t improvemen t return to work note [id number] October [facility] Internal [address],[place] [address] 05/07/2019 09:45:23 05/07/2019 10:10:25 Body mass index 40+ - severely obese 691588412 Z68.41 had lost weight htne gradually gained it back Essential hypertension 13297777 I10 diet exercise reinforced Tobacco user 583334463 Z 72.0 5-6 cigars per year Screening procedure 2012 5006 Z13.9 Screening for malignant neoplasm of prostate 405275306 Z12.5 [id number] October THEO Ward [facility] [address] [facility],[place] [address] 07/23/2019 16:08:50 07/23/2019 16:44:12 Body mass index 40+ - severely obese 016639040 Z68.41 had lost weight then gradually gained it back Essential hypertension 24246244 I10 well controlled with lisinopril Tobacco user 313257611 Z 72.0 5-6 cigars per year Obstructiv e sleep apnea syndrome 94345648 G47.33 [id number] SORIN ARORA [facility] [address] [facility],[place] [address] 08/24/2020 11:36:47 08/24/2020 13:31:26 Essential hypertension 00237795 I10 BP is excellent today Obesity 211436068 E66.9 weight stable, will continue to stress diet and exercise Active or passive immunization 461310795 Z23 will have patient go for Tdap Booster [id number] Mika Hogue DO [facility] [address] [facility],[place] [address] 02/28/2021 14:21:49 02/28/2021 15:37:08 Active or passive immunization 285832050 Z23 Adult [facility] th examination 391821303 Z00.01 [address] [place] [address]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 MEET 2 OUT OF [...] Body mass index 40+ - severely obese 156432392 Z68.41 long detailed discussion Hypogonadism 91311135 E2 9.1 we will rechk the lab Essential hypertension 34005211 I10 will chk usual labwe will then hold the losartan after he finsihes the current 90 day rx in may then we will have him chk bp at home and see him after holidays Obstructiv e sleep apnea syndrome 08867950 G47.33 doing every night [id number] SORIN ARORA [facility] [address] [facility],[place] [facility] [place] [address] 2023 09:59:42 2023 10:35:02 Obstructive sleep apnea syndrome 04550636 G47.33 stable Essential hypertension 88647899 I10 BP is excellent today Hypogonadism 26888465 E2 9.1 stable Erectile dysfunction 860 357395 N52.8 will start on viagra and see how he fares on the lower dose Body mass index 40+ - severely obese 749729921 Z68.41 down in weight [id number] Mika Hogue DO [facility] [address] [facility],[place] [address] 06/27/2024 08:58:15 06/27/2024 09:38:43 Depression screening 461948580 Z13.31 neg Essential hypertension 28549994 I10 will chk usual labwe will then hold the losartan after he finsihes the current 90 day rx in late may then we will have him chk bp at home and see him after holidays Hypogonadism 47195979 E2 9.1 we will rechk the lab Obesity 979872821 E66.9 dropped 70 lbs and will be going for bariatric surg in aug Acute gout 470680439 M10 .00 Health Concerns Section Related Observation LastModified by Organization Detai ls LastModified Time None Recorded Concern Status LastModified by Organization Details LastModified Time None Recorded Advance Directives Directive None Recorded Payers Encounter Date Sequence Insurance Name Policy Number Policy Valadez Covered Member ID Valadez Member ID Guarantor Name 07/23/2019 1 [employer]YSTAL: FRANKY (PPO) [id number] Miguel Beasley [id number] Miguel [employer]iga[employer]charline 08/24/2020 1 [facility] [id number] Miguel Beasley [id number] Miguel Zuñiga[employer]charline 02/28/2021 1 [facility] [id number] Miguel ZuñigaCancharline [id number] Miguel ZuñigaCancharline 2023 1 [facility] [id number] Miguel ZuñigaCancharline [id number] Miguel ZuñigaCancharline 06/27/2024 1 [facility] [id number] Miguel Beasley [id number] Miguel Beasley Notes Date Note Type Note [...] rashes, or nail changes. THEO Guillermo [address] [place], [address], [facility] 07/23/2019 16:40:01 1 text/html BP [...] otherwise no concerns today SORIN ARORA [address] [place], [address], [facility] 08/24/2020 18:05:26 1 text/html Annual [...] hearing Vision:no vision problems Mika Hogue DO [address] [place] [address], [address], [facility] 02/28/2021 15:11:54 3 text/html medication check HTN: [...] stable BMI: down in weight SORIN ARORA [address] [place] [address], [address], [facility] 2023 10:20:23 4 text/html here for rechk and is feeling well relates that he has lost 70lbs through the [facility] wgt loss prog !!!! also has had a recent attack of severe inflammatory arthritiswhich certainly sounds like an acute gout attack Mika Hogue DO [address] [place], [address], [facility] 06/27/2024 09:25:43
--- OUTSIDE RECORDS SUMMARY | 2024-08-26 06:22 | XMS_ITS | Clinical Summary ---
Author Organization [facility] Address [address] [place] [address] Care Team Providers Care Manager Equipment Name Role Phone Unavailable Primary Care Provider [...]
[2024-08-26] MEDS: Aprepitant 32 MG/4.4 ML VIAL IVPUSH (06:56)
[2024-08-26] MEDS: Lactated Ringers 1,000 ML 999 ML IV (06:56)
--- NOTE | 2024-08-26 07:33 | P.HPSUR_ITS ---
Pre-Procedural Eval Section A - 24 Hr Update-Section A only Date of Service: 08/26/24 The patient is an INPATIENT: Yes The patient has been examined within 24 hours of the surgical procedure. The History & Physical has been completed within 30 days and I have reviewed it.: Yes Section B - Complete if H&P > 30 days Chief Complaint: Morbid (severe) obesity due to excess calories Relevant Family History (Specify if Yes): No Relevant Social History: None Present Medications: None Medical History: No relevant PMH History of Previous Operations: No relevant previous surgery Allergies: Allergies Allergy/AdvReac Type Severity Reaction Status Date / Time linezolid [From ZYVOX] Allergy Mild HIVES Verified 08/26/24 06:19 Review of Systems Sugical H&P ROS: Negative: Constitution, Cardiovascular, Respiratory, Neuro logical, Psychiatric, Hem-Onc, Allergic/Immunologic, Gastrointestinal, Genitourinary, Musculoskeletal, Integumentary, Endocrine and Eyes/Ears/Nose/Throat Exam Surgical H&P Exam: Normal: HEENT, Normal: Heart, Normal: Lungs, Normal: Extremities, Normal: Abdomen, Normal: Skin and Normal: Neurological Plan Diagnosis/Plan: Unchanged I have reviewed the history and physical and performed a pertinent physical examination on my patient. No changes have occurred unless specified. Time Spent With Patient Time: Total time managing care of this patient today ____ minutes.
--- NOTE | 2024-08-26 07:34 | PM.OP ---
Brief Operative Note Date of Service: 08/26/24 Pre-op diagnosis: Severe obesity with comorbidities (see below) Post-op diagnosis: same (& Incarcerated diaphragmatic hernia) Procedure: INITIAL PATIENT BMI ON PRESENTATION AT OUR OFFICE: 50.8 kg/m2 LAST BMI BEFORE SURGERY: 36.5 kg/m2 COMORBIDITIES: sleep apnea on CPAP, hypertension, gout, GERD, septal hypertrophy ?The patient presented to the Weight Management Program with significant obesity that was negatively impacting the patient's comorbidities as listed above.? The program is a phased program with a special focus on preoperative medical weight management to promote substantial weight loss and prepare the patients for the second phase of the program: bariatric surgery. The patient participated in an intensive weekly lifestyle ?intervention and exercise program during which the patient ?has lost between the initial office visit and the last preoperative visit 92 lbs, or 28.4% of initial actual body weight. It was deemed appropriate for the patient to now have bariatric surgery. In light of the current Covid-19 pandemic and the well documented strong association of obesity and increased risk of worse outcomes if infected with Covid-19 (REFERENCES:https://pubmed.ncbi.nlm.nih.gov/46033090/,?https://pubmed.ncbi.nlm.nih.gov/16376065/), any delay in undergoing bariatric surgery may lead to the patient's worsening health condition and increased?risk of more severe Covid-19 disease if infected. In addition a recent?study from [facility] published in [employer] on 07/04/2021 ([email or web address]) found that, among patients with obesity, substantial weight loss achieved with surgery was associated with improved outcomes of COVID-19 infection. The findings suggest that obesity can be a modifiable risk factor for the severity of COVID-19 infection. In addition, the patient met the BMI-criteria for bariatric surgery based on the BMI on initial presentation. The patient should not be penalized for achieving such weight loss because ?it is not sustainable long-term without surgical intervention and it was achieved in preparation for bariatric surgery ?under my direction and based on my published research ([email or web address]).[email or web address] and?[email or web address].soard.org/article/[email or web address])37130-X/pdf) ?that a 10% preoperative weight loss improves long-term weight loss after surgery and reduces perioperative complications.? Insurance carriers such as [facility] have endorsed my recommendations ?and have included in their policies criteria to include a 10% preoperative weight loss requirement. PROCEDURE: Esophago-gastroscopy, laparoscopic repair of incarcerated diaphragmatic hernia, laparoscopic lysis of adhesions, laparoscopic sleeve gastrectomy and laparoscopic gastropexy INDICATIONS: This is a 64 year-old male who was electively scheduled for laparoscopic, possibly open sleeve gastrectomy. The risks and complications of the procedure were discussed with the patient in advance, particularly the possibility of ; pulmonary embolism; staple line leak; bleeding; GERD; cardiac, pulmonary, or renal complications; as well as long-term problems such as insufficient weight loss, vitamin deficiency, strictures, or ulcers. The patient understood all the risks, and was in agreement to proceed with surgery. DESCRIPTION OF PROCEDURE: After informed consent was obtained from the patient, the patient was given preoperative antibiotics, and was transferred to the operating room. After successful induction of general anesthesia, pneumatic compression devices were placed on both lower extremities. An upper endoscopy was performed next. The oropharynx and esophagus appeared to be within normal limits. There was a diaphragmatic hernia present of moderate size consistent with the findings of the preoperative upper GI. The stomach was entered. Then after all fluid and air were suctioned and the stomach was fully decompressed, the scope was withdrawn and secured in the mid esophagus. The patient was then prepped and draped in the usual sterile manner, and abdominal access was established at the right upper quadrant with the Clarisse technique. A 12 mm blunt port was inserted, and the abdomen was insufflated with CO2 to a pressure of 15 mmHg. Under direct visualization, additional ports were placed, specifically two 5 mm Versi-step ports to the left upper quadrant, and a 5 mm Versi-Step port to the right upper quadrant. 1% lidocaine plain was used to infiltrate all port sites as well as all fascia defects. Following that, the patient was placed in a steep reverse Trendelenburg position. An additional 5 mm port was placed to the right flank for the Mediflex retractor that was used to retract the left lobe of the liver. The gastro-esophageal fat pad was opened with the ultrasonic device (Thunderbeat, Olympus) and the anterior esophagus and hiatus were exposed. The angle of His was opened with the ultrasonic device the fundus of the stomach from any diaphragmatic and splenic attachments. I then opened the gastrocolic ligament between the transverse colon and the greater curvature of the stomach with the ultrasonic device to enter the lesser sac and facilitate the ligation of the short gastric vessels. I started at a mid-point along the greater curvature and using the Thunderbeat, all short gastric vessels were divided all the way to the angle of His until the left chrissy was completely dissected at its entirety. I then divided the gastro-colic ligament distally to a distance of about 3-4 cm proximal to the pylorus. There was an obvious significant-sized hiatal hernia. I continued dissecting along the hiatus toward the left chrissy and the angle of His. I fully mobilized the fat pad that was incarcerated in the hernia. I then continued by dissecting even further into the posterior retro-esophageal space all the way to the angle of His. I continued to mobilize the esophagus into the mediastinum circumferentially. Both vagal nerves were seen and preserved. At that point, I was able to have at least 3 to 5 cm of esophagus into the abdomen.? After I completely mobilized the esophagus from both the left and right chrissy and I had a good mobilization of the esophagus circumferentially, I closed the hernia defect with three interrupted #0 Surgidac sutures using the Endo Stitch device, two of which was placed posterior and one of which anterior to the esophagus. ? The stomach was then divided transversely with four Endo STEPHANY-45 purple and three STEPHANY-60 articulating purple loads using the SIGNIA stapler and loads. Every effort was made that the gastric sleeve had a tubular shape and an even caliber throughout. Once the sleeve resection was completed, the staple line of the gastric sleeve was reinforced with Hemoclips. The resected stomach was retrieved without difficulty from the Clarisse port. A gastropexy was then performed in order to prevent postoperative GERD and partial gastric volvulus. Several interrupted 2.0 Surgidac sutures were placed between the sleeve's staple line and the previously divided greater omentum and gastro-colic ligament using the Endo-Stitch device. ?An upper endoscopy was performed. There was no narrowing at the GE junction. The scope was easily advanced all the way to the pylorus which was clearly visualized. There was no narrowing anywhere and the sleeve's caliber was even throughout. The sleeve's staple line was inspected and there was no evidence of ischemia, bleeding or dehiscence. At that point the gastroscope was withdrawn from the patient?s mouth while we were decompressing the bowel and the stomach from any remaining air. I looked into the lesser sac to see how the sleeve was situating and it was situating well. There was no bleeding from the staple line, spleen, or short gastric vessels. The Mediflex retractor was removed, and the undersurface of the liver was inspected and there was no bleeding. The patient was placed in supine position. I closed the fascial defect of the 12 mm port site with a figure of eight #1 Polysorb suture. Then 30cc Ropivacaine plain with 10 mg of Dexamethasone were used to infiltrate the fascial closure as well as all skin incisions. At this point, the abdomen was deflated, all ports were removed under direct vision, and no bleeding was noted from any of the port sites. The skin incisions were irrigated with saline and were closed with 4-0 absorbable monofilament sutures. Steri-Strips and OpSites were used to cover all incisions. The patient was extubated and was transferred in stable condition to the recovery room for further care. I was present and performed all barrett parts of the procedure. Glenn Leong was the home based assistant. There were no residents to assist with this case. Fred Choi MD, PhD, FACS Surgeon: Henri Choi MD Anesthesia: GETA, local and other (TAP block) Was an Final Assembler Boat used for this Procedure?: No Final Assembler Boat: Eileen Leong Estimated blood loss (mL): 10 IV fluids (mL): 2,000 Urine output (mL): 0 (No [place] to record output) Pathology: other (1) Stomach, 2) gastro-esophageal fat pad x2) Condition: stable Disposition: PACU
--- NOTE | 2024-08-26 07:37 | P.PNGS_ITS ---
Subjective Subjective Date of Service: 08/27/24 Interval history: Feels well. Mild incisional pain. He is tolerating phase 1 bariatric diet Physical Exam 2 Vital Signs: Vital Signs: Last Vital Signs Temp 97.6 F 08/26/24 06:37 Pulse 73 08/26/24 06:37 Resp 16 08/26/24 06:37 BP 130/79 08/26/24 06:37 Pulse Ox 97 08/26/24 06:37 O2 Del Method Room Air 08/26/24 06:37 BMI result Body Mass Index 35.8 GI: Inspection: Yes normal to inspection, Yes incision (clean, dry and intact) and Yes obesity Palpation (GI): Soft to palpation Extrem: Right lower extremity: normal to inspection (no calf tenderness) L eft lower extremity: normal to inspection (no calf tenderness) Objective Data Active Medications Lactated Ringer's (Lr) 1,000 mls @ 100 mls/hr IVCONT .Q10H OSMAR Lactated Ringer's (Lr) 1,000 mls @ 999 mls/hr IV .Q1H1M OSMAR Stop: 08/26/24 08:15 Last Admin: 08/26/24 06:56 Dose: 999 mls/hr Documented By: GARO Labs 08/27/24 05:30 08/27/24 05:30 Procedures Date of Service Date of Service: 08/27/24 Progress Note: A&P Assessment and plan (1) Obesity: Status: Acute Assessment and Plan: s/p laparoscopic sleeve gastrectomy, lysis of adhesions, diaphragmatic hernia repair and gastropexy Doing well Will check am labs and if OK the patient will be discharged home (2) BMI 36.0-36.9,adult: Status: Acute (3) HTN (hypertension): Status: Acute (4) KIN on CPAP: Status: Acute (5) Gout: Status: Acute (6) Steatosis, liver: Status: Acute (7) GERD (gastroesophageal reflux disease): Status: Acute (8) Diaphragmatic hernia: Status: Acute (9) S/P laparoscopic sleeve gastrectomy: Status: Acute (10) Status post repair of paraesophageal diaphragmatic hernia: Status: Acute Time Spent With Patient Time: Total time managing care of this patient today ____ minutes. Quality Stroke Does the patient have a stroke diagnosis?: No VTE Prior VTE?: No VTE Risk Level:: Surgical - moderate VTE Device Contraindication: N/A - Device Ordered VTE Drug Contraindication: Treatment Not Indicated
--- NOTE | 2024-08-26 07:46 | PHA.MEDREC ---
Pharmacy Consult ? Medication Reconciliation Pharmacy has verified the medication reconciliation completed by nursing. Went to speak to patient to confirm pt is only taking allopurinol 100mg daily.
[2024-08-26] MEDS: ceFAZolin Sodium/Dextrose,Iso 2 GM/50 ML PIGGYBACK IV ×2 (07:50→16:06)
--- NOTE | 2024-08-26 10:38 | P.DS_ITS ---
DS: Providers Provider Date of Service: 08/27/24 Date of admission: 08/26/24 06:19 Date of discharge: 08/27/24 Primary care physician: Mika Ovalles MD DS: Diagnosis Discharge Diagnosis (1) Obesity: Status: Acute (2) BMI 36.0-36.9,adult: Status: Inactive (3) HTN (hypertension): Status: Acute (4) KIN on CPAP: Status: Acute (5) Gout: Status: Acute (6) Steatosis, liver: Status: Acute (7) GERD (gastroesophageal reflux disease): Status: Acute DS: Summary Hospital Course Hospital Course: ADMITTING DIAGNOSIS: morbid obesity,?GERD, gout, liver steatosis, KIN on CPAP, HTN ? DISCHARGE DIAGNOSIS: same, s/p laparoscopic sleeve gastrectomy with gastropexy and repair diaphragmatic hernia ? PAST SURGICAL HISTORY:?Hx oral surgery, hx colonoscopy ? PROCEDURE: upper endoscopy, laparoscopic sleeve gastrectomy and repair of diaphragmatic hernia hernia ? DISCHARGE SUMMARY: ? History of Present Illness: ? The patient is a? 64? year-old man with a BMI of? ?35.8 ? kg/m2 and associated co-morbidities as described above. The patient had extensive work-up, lost?99.6?lbs preoperatively and was electively scheduled for laparoscopic, possible open sleeve gastrectomy and gastropexy. Risks and complications of the surgery were discussed with the patient in advance, particularly the possibility of , pulmonary embolism, anastomotic leak, bleeding, bowel injury, GERD, cardiac, renal or pulmonary complications. The patient understood all the risks and was in agreement with the surgical plan. ? Hospital Course: ? The patient underwent an uneventful laparoscopic sleeve gastrectomy with gastropexy and repair of diaphragmatic hernia on the day of admission. Postoperatively, the patient was transferred to the surgical floor. The patient received IV Acetaminophen and IV dilaudid for pain control. Patient was started on bariatric phase 1 diet POD #0. On postoperative day one, the patient was feeling well without nausea, vomiting, fevers, or tachycardia. The patient had some mild incisional pain and the abdomen was soft.? ? On the morning of postoperative day one, the patient was continued on 1 ounce of water or ice every half hour. During the day, the patient did fairly well, having some incisional pain, but able to ambulate adequately and to tolerate liquids well. ? Since the patient is doing well, we decided that the patient was ready to be di scharged. The patient was given instructions to follow-up with me next week and to call my office for any fever over 101, persistent abdominal pain, nausea, vomiting, GERD, symptoms of DVT such as calf tenderness, or leg swelling, or pulmonary embolism such as chest pain or shortness of breath.? The patient was also instructed to drink 40-60 ounces of liquids per day using the 1-ounce cups. The patient had been given prescriptions for Tylenol for pain, Zofran prn for nausea, and pantoprazole and carafate previously. The patient was encouraged to ambulate and use the incentive spirometer. The patient was allowed to shower, but no baths, and encouraged to stay active at home. All of these instructions were given to the patient personally. All questions were answered and the patient understood all instructions, the instructions were also given to the patient in print. Time Attestation Discharge Coordination Time (in mins): 30 Quality: Safe Use of Opioids Does Pt have an Active Cancer Diagnosis on the Problem List?: No Quality: Stroke Does the patient have a stroke diagnosis?: No Physical Exam Vital Signs: Vital Signs: Last Vital Signs Temp 97 F 08/26/24 10:28 Pulse 64 08/26/24 10:30 Resp 22 H 08/26/24 10:30 BP 147/77 H 08/26/24 10:30 Pulse Ox 98 08/26/24 10:30 O2 Del Method Nasal Cannula 08/26/24 10:30 O2 Flow Rate 2 08/26/24 10:30 BMI result Body Mass Index 35.8 DS: Data Data Completed and Pending Pending studies at discharge: Pending at discharge 08/26/24 09:49 Surgical [PTH] Routine Discharge Plan Discharge Anticipated Discharge Date/Time: 08/27/24 10:00 Patient Disposition: Home, Self-Care Discharge Diagnosis: s/p laparoscopic sleeve gastrectomy with gastropexy and diaphragmatic hernia repair Referrals: Mika Ovalles MD [Primary Care Provider] - 1 Week Discharge Medications: Continued allopurinol 100 mg tablet 100 mg DAILY pantoprazole 40 mg tablet,delayed release (DR/EC) 40 mg PO DAILY Qty: 90 0RF sucralfate 100 mg/mL suspension 10 ml PO BID Qty: 600 2RF Held losartan 50 mg tablet 25 mg PO Q OTHER DAY Hold Instructions: Resume on 08/28/24. Check your blood pressure every morning as soon as you wake up and send it to Dr. Choi. Do no take the blood pressure medication if the blood pressure is below 120/70. Wait every day to hear back from Dr. Choi before you take the medication. Discontinued thiamine HCl (vitamin B1) 100 mg tablet 100 mg PO DAILY 90 Days Qty: 90 1RF multivitamin Tablet 1 tab PO DAILY ascorbic acid (vitamin C) 250 mg Tablet 500 mg PO DAILY Discharge Orders: Discharge Order (Routine); Ordered 08/27/24 Ordered By: Henri Choi Activity on Discharge: No heavy lifting Stand Alone Forms: Patient Portal Discharge page Print Language: Liberian Care Plan Goals: weight loss Health Concerns: obesity Plan of Treatment: No tub baths, sex or returning to work until discussed at first post op appointment. No alcohol, tobacco or illegal drug use. Continue to use incentive spirometer hourly while awake. Walk in home for 5- 10 minutes every 2 hours during the first week. Wear abdominal binder with activity. Follow all meal plan instructions from your bariatric surgeon. Review bariatric handbook and call with any questions. Discharge Instructions 1. Please call your doctor or come back to the emergency room should any new symptoms arise. 2. Activity: abstain from alcohol,? limited stair climbing, no bending, no driving, no exercise, no illicit substances, no lifting, no sex, no tub bath, no work. 4. Diet: follow your bariatric surgeons recommendations for advancing diet. 5. Dressing Change/Wound Care: Your incisions are covered with waterproof dressings. You can shower with these and pat dry. Do not rub over dressings or incisions. If the area is tender, you may apply an ice pack for short intervals (no more than 20 minutes on, followed by at least 20 minutes off). Do not apply heat. Do not use creams, lotions, or topical antibiotics unless instructed to do so by your surgeon. 6. Call your doctor if: - Your temperature exceeds 101.5 F - You experience excessive pain or swelling - You have an unexpected reaction to medication - You have excessive bleeding - You experience continued vomiting/nausea - Your incision begins to separate - Your incision shows signs of infection such as increased redness, swelling, excessive pain, heat, or drainage (light blood or clear fluid is normal) General instructions: No lifting greater than 10 lbs for the next 6 weeks[address] driving within 24 hours of taking narcotic pain medications. If you do not move your bowels in the next 2 days, please take milk of magnesia over the counter. Please follow the post op diet and do not advance your diet until you are seen in the office in about 2 weeks. Please walk around your home every hour or two to prevent blood clots from forming in your legs. You do not need to wake from sleeping to walk. Please sleep in a bed or couch to prevent kinking at the hips and knees. Please take your incentive spirometer (your lung photoengraving sketch maker) home with you and use it for the next few days to prevent pneumonias. You may shower, no hot tubs, baths or swimming pools. Please call the office with any questions or concerns such as increasing abdominal pain, fever, chills, shortness of breath, chest pain, leg pain or swelling, or redness or drainage from your incisions. Please make sure you are consuming 40-60 ounces of total fluids per day. Avoid all carbonation. Do not hesitate to contact the office with any questions at . The patient's medical history has been reviewed and they are considered low risk for post op DVT and therefore DVT prophylaxis is not considered necessary. Travel after surgery was reviewed. The patient has not disclosed any travel plans during the first 30 days after surgery and they have been advised that within the first 30 days after surgery any bus, plane, train or car travel over 2 hours in duration is contraindicated due to the possibility of developing blood clots from immobility. Any travel, needs to include periods of ambulation of 10 minutes in duration every 2 hours.? The patient was instructed to discuss any plans for travel during this period with their bariatric surgeon. Assessment: s/p laparoscopic sleeve gastrectomy with gastropexy and diaphragmatic hernia repair Discharge Date/Time: 08/27/24 09:10
[2024-08-26] MEDS: Lactated Ringers 1,000 ML 100 ML IVCONT ×2 (13:24→21:11)
--- NOTE | 2024-08-26 13:35 | PC.NURSE ---
Pt instructed on use of incentive spirometer and phase I barbaric diet , pt very receptive
[2024-08-26 14:19] LABS: Hematocrit 44.2 % (42.0-52.0); Hemoglobin 15.2 g/dl (14.0-18.0)
[2024-08-26 14:41] LABS: Anion Gap 17 (12-20); Blood Urea Nitrogen 18 mg/dL (9-16); Calcium 9.3 mg/dL (8.4-10.2); Carbon Dioxide 22 mmol/L (22-29); Chloride 104 mmol/L (96-108); Creatinine Clr Calc Pharmacy 134.9; Estimated Glomerular Filt Rate > 60; Glucose Random 117 mg/dL (60-115); Potassium 4.2 mmol/L (3.3-5.1); Sodium 139 mmol/L (135-145)
[2024-08-26] MEDS: Acetaminophen 1,000 MG/100 ML PIGGYBACK 16.7 MG IV ×2 (16:05→21:06)
[2024-08-26] MEDS: Famotidine/PF 20 MG/2 ML VIAL IVPUSH (21:11)
[2024-08-26] MEDS: 0.9 % Sodium Chloride Flush 3 ML SYRINGE IVFLUSH (21:11)
[2024-08-27 03:00] VITALS: BP 127/70; PULSE 60; RESP 16; TEMP 36.8; O2SAT 96
[2024-08-27] MEDS: Acetaminophen 1,000 MG/100 ML PIGGYBACK 16.7 MG IV (03:10)
[2024-08-27] MEDS: Lactated Ringers 1,000 ML 100 ML IVCONT (06:16)
[2024-08-27 06:41] LABS: MANUAL DIFF FLAG NO
[2024-08-27 07:00] VITALS: BP 140/67; PULSE 55; RESP 18; TEMP 36.4; O2SAT 96
[2024-08-27 07:04] LABS: Anion Gap 12 (12-20); Blood Urea Nitrogen 14 mg/dL (9-16); Carbon Dioxide 24 mmol/L (22-29); Chloride 106 mmol/L (96-108); Creatinine Clr Calc Pharmacy 150.4; Estimated Glomerular Filt Rate > 60; Glucose Random 95 mg/dL (60-115); Potassium 4.3 mmol/L (3.3-5.1); Sodium 138 mmol/L (135-145)
[2024-08-27 07:12] LABS: Basophils Percent Auto 0.1 % (0-2); Hematocrit 40.2 % (42.0-52.0); Hemoglobin 13.9 g/dl (14.0-18.0); Imm Gran Abs Auto 0.05 X10*3/uL (0.00-0.03); Imm Gran Pct Auto 0.5 % (0.0-0.4); Lymphocytes Absolute Auto 1.3 X10*3/uL (1.2-4.9); Lymphocytes Percent Auto 13.9 % (20-40); Mean Corpuscular HGB Conc 34.6 g/dl (31.0-36.0); Mean Corpuscular Volume 89.5 fL (80.0-98.0); Monocytes Percent Auto 10.8 % (2-11); Neutrophils Absolute Auto 7.2 x10*3/uL (2.0-8.3); Neutrophils Percent Auto 74.7 % (45-73); Platelet Count 244 X10*3/uL (160-400); Red Blood Count 4.49 X10*6/uL (4.60-5.80); Red Cell Distribution Width 12.9 % (11.0-16.0); White Blood Count 9.7 X10*3/uL (4.8-10.8)
--- NOTE | 2024-08-27 08:41 | MHC.CM.PN ---
pt dcd home self care prior to being seen by cm
[2024-08-27 08:43] VITALS: O2SAT 95
--- NOTE | 2024-08-27 09:06 | HO.POSTANES ---
Post Anesthesia Evaluation Post Anesthesia Evaluation Date of Service: 08/27/24 Vital Signs: Vital Signs Temp Pulse Resp BP Pulse Ox O2 Del Method 08/27/24 07:00 97.5 F 55 18 140/67 H 96 Room Air 08/27/24 03:00 98.3 F 60 16 127/70 96 CPAP 08/26/24 23:00 98.4 F 54 16 128/77 96 Room Air 08/26/24 22:32 16 Anesthesia: General Endotracheal-GETA Mental Status: Awake Pain Control: Satisfactory Nausea/Vomiting: None Hydration: Adequate Anesthesia-Related Issues: No Anes. Related Issues
== END 2024-08-27 09:10 | disposition home or self-care (01) | DRG 620 ==
LOC: HO.SSSA 10:36 → HO.S3 12:43
PROVIDERS: Physician Assistant Surgical; Admitting Provider Surgery; PCP Internal Medicine; Visit Provider Surgery
PROC: 0DB64Z3 Excision of Stomach, Percutaneous Endoscopic Approach, Vertical (ICD-10-PCS; CPT 43845; principal; 2024-08-26 07:30)
DX: E66.01 Morbid (severe) obesity due to excess calories (principal); K44.0 Diaphragmatic hernia with obstruction, without gangrene; M10.9 Gout, unspecified; G47.33 Obstructive sleep apnea (adult) (pediatric); K21.9 Gastro-esophageal reflux disease without esophagitis; I11.9 Hypertensive heart disease without heart failure; F17.210 Nicotine dependence, cigarettes, uncomplicated; Z68.36 Body mass index [BMI] 36.0-36.9, adult; Z71.6 Tobacco abuse counseling; Z79.899 Other long term (current) drug therapy
CPT/HCPCS: 43775; 43659; 36415; 80048; 80053; 80061; 83036; 83525; 84443; 85014; 85018; 85025; 85610; 85730; 86140; 86850; 86900; 86901; 88304; 88307; 88342; 99221; A4649; C9145; J0131; J0690; J1100; J1171; J2003; J2250; J2405; J2704; J2795; J3010; J7120

== ENCOUNTER → 2024-08-26 06:19 | Outpatient (BNV) | payer OTHER, SELFPAY | PROVIDERS: Admitting Provider Surgery; PCP Internal Medicine; Visit Provider Surgery | DX: E66.812 Obesity, class 2 (principal); E66.01 Morbid (severe) obesity due to excess calories; Z68.37 Body mass index [BMI] 37.0-37.9, adult; Z68.36 Body mass index [BMI] 36.0-36.9, adult; I10 Essential (primary) hypertension; G47.33 Obstructive sleep apnea (adult) (pediatric); M10.9 Gout, unspecified; K76.0 Fatty (change of) liver, not elsewhere classified; K21.9 Gastro-esophageal reflux disease without esophagitis; K44.9 Diaphragmatic hernia without obstruction or gangrene; Z98.84 Bariatric surgery status; Z98.890 Other specified postprocedural states; Z87.19 Personal history of other diseases of the digestive system | CPT/HCPCS: 43659; 43775; 99024 ==

== ENCOUNTER 2024-09-01 07:59 | Outpatient (AMB) | payer OTHER, SELFPAY ==
--- OUTSIDE RECORDS SUMMARY | 2024-09-01 08:06 | XMS_ITS | Clinical Summary ---
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
--- OUTSIDE RECORDS SUMMARY | 2024-09-01 08:06 | XMS_ITS | Data Portability ---
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, [address] [place] [address] [address], [place], [address], 07/25/2019 09:37:40 Procedures None recorded. Surgeries None recorded. Imaging None recorded. Medication Orders sildenafi l 25 mg tablet 2022 023 [id number], [address] [facility], [place], [place], [phone], 2023 10:16:49 losartan 50 mg tablet 2020 021 [facility] #[id number], [address], [place], [id number], 08/24/2020 12:10:00 lisinopri l 10 mg tablet 2019 020 [facility] [employer] [facility] #[id number], [address], [place], [phone], 06/21/2020 08:32:04 Patient TargetsNo targets recorded. Patient Instructions Encounter Date Encounter Id Patient Instructions Last Modified By Organization Details Last Modified Time 07/23/2019 [id number] body mass index: care instructions Not available 07/23/2019 16:35:53 learning about healthy weight Not available 07/23/2019 16:35:54 sleep apnea: car e instructions Not available 07/23/2019 16:35:53 Quitting Tobacco : Care Instructions Not available 07/23/2019 16:35:53 high blood pressure: care instructions Not available 07/23/2019 16:35:54 learning about high blood pressure Not available 07/23/2019 16:35:54 02/28/2021 [id number] body mass index: care instructions Not available 02/28/2021 15:07:37 learning about healthy weight Not available 02/28/2021 15:07:37 sleep apnea: car e instructions Not available 02/28/2021 15:07:37 high blood pressure: care instructions Not available 02/28/2021 15:07:37 learning about high blood pressure Not available 02/28/2021 15:07:37 06/27/2024 [id number] When You Want to Lose Weight: Care [...] sleep study No observ ation record ed. [facility] [address] [place], [address], 10/14/2019 08:21:48 03/13/20 24 03/07/2024 US, abdom en, limit ed No observ ation record ed. [facility] (Medical Records) [address] [place], [address], 03/14/2024 08:57:05 04/01/20 24 03/15/2024 XR, chest , 2 view No observ ation record ed. [email or web address] [facility] (Medical Records) [address] [place], [address], 04/02/2024 08:45:45 05/14/20 24 05/13/2024 XR, abdom en + RF, upper gastr ointe aleida l tract , w/ air, w/ contr ast PO No observ ation record ed. [facility] (Medical Records) [address] [place], [address], 05/14/2024 16:29:08 06/24/20 24 06/24/2024 XR, wrist No observ ation record ed. [email or web address] [facility] (Medical Records) [address] [place], [address], 06/24/2024 15:14:28 06/24/20 24 06/24/2024 US, huma suarez s, extre mity, compl ete No observ ation record ed. [facility] (Medical Records) [address] [place], [address], 06/24/2024 12:18:01 07/28/19 25 07/25/2024 NM, myoca rdial perfu leslie scan No observ ation record ed. [facility] (Medical Records) [address] [place], [address], 07/29/2024 08:29:57 07/28/19 25 07/25/2024 NM, myoca rdial perfu leslie scan, w/ stres s No observ ation record ed. [facility] (Medical Records) [address] [place], [address], 07/29/2024 08:30:35 Result Notes None recorded. Problems Name Problem SNOMED Code Status Onset Date Resolution Date Notes Provider Name and Address Organization Details Recorded Time Cellulitis 697551483 Active 2017 leg Winifred fraser [facility] 8 08:15:14 Hypogonadi sm 53769506 Active 2017 Winifred fraser [facility] 8 08:15:32 Essential hypertensi on 66801411 Active 2020 SORIN ARORA [address] [place] [address], [address], [facility] 1 12:15:43 Obesity 395532875 Active 2020 SORIN ARORA [address] [place] [address], [address], [facility] 1 12:15:50 Obstructiv e sleep apnea syndrome 24659674 Active 2020 Mika Hogue DO [address] [place], [address], [facility] 1 15:03:05 Erectile dysfunctio n 511036026 Active 2022 SORIN ARORA [address] [place] [address], [address], [facility] 3 10:14:52 Acute gout 961824593 Active 2023 Mika Hogue, DO [address] [facility], [place], [address], [place] [facility] 4 09:23:44 Gout 25746646 Active 2024 Mika Hogue, DO [address] [facility], [place], [address], [place] [facility] 5 15:16:54 Problem Notes None recorded. Procedures Surgical History None recorded. Imaging Results Imaging Date Name Status LastModified by Organization Details LastModified Time 10/04/[address] [facility] [address] [place], [address], 10/14/2019 08:21:48 03/07/2024 US, abdomen, limited completed [facility] (Medical Records) [address] [place], [address], 03/14/2024 08:57:05 03/15/2024 XR, chest, 2 view completed [address] (Medical Records) [address] [place], [address], 04/02/2024 08:45:45 05/13/2024 XR, abdomen + RF, upper gastrointestinal tract, w/ air, w/ contrast PO completed [facility] (Medical Records) [address] [place], [address], 05/14/2024 16:29:08 06/24/2024 XR, wrist completed [facility] (Medical Records) [address] [place], [address], 06/24/2024 15:14:28 06/24/2024 US, duplex, venous, extremity, complete completed [address] (Medical Records) [address] [place], [address], 06/24/2024 12:18:01 07/25/2024 NM, myocardial perfusion scan completed [facility] (Medical Records) [address] [place], [address], 07/29/2024 08:29:57 07/25/2024 NM, myocardial perfusion scan, w/ stress completed [facility] (Medical Records) [address] [place], [address], 07/29/2024 08:30:35 Procedure Notes None recorded. Medical Equipment None Reported. Allergies Allergen ID Allergen Name Allergen Category Reaction Reaction Severity Criticality Documentation Date Start Date Code Code System Note Provider Name and Address Organization Details Recorded Time 2202 Zyvox medicatio n hives Not available Not available 03/06/2018 03521 0 RxNorm Winifred fraser [place] - [facility] 8 10:39:23 Medications Name Sig [...] Address Organization Details Last Updated DateTime 0 951596. 49 g 78 /min 97 % 97 % 47.5 kg/m2 170.18 cm 112 mm[Hg] 80 mm[Hg] [facility] 0 16:15:45 Date Recorded Body weight Heart rate Oxygen saturation Oxygen saturation in Arterial blood by Pulse oximetry Systolic blood pressure Diastolic blood pressure Provider Name and Address Organization Details Last Updated DateTime 1 929895. 6 g 78 /min 97 % 97 % 124 mm[Hg] 80 mm[Hg] [facility] 1 11:52:44 Date Recorded Body weight Body mass index (BMI) Body height Heart rate Oxygen saturation Oxygen saturation in Arterial blood by Pulse oximetry Systolic blood pressure Diastolic blood pressure Provider Name and Address Organization Details Last Updated DateTime 1 495393. 02 g 37.7 kg/m2 201.93 cm 81 /min 98 % 98 % 130 mm[Hg] 70 mm[Hg] Mika Hogue DO [address] [place], [address] [place] [address] Internal [facility] 1 14:37:55 Date Recorded Body weight Body mass index (BMI) Body height Heart rate Oxygen saturation Oxygen saturation in Arterial blood by Pulse oximetry Systolic blood pressure Diastolic blood pressure Provider Name and Address Organization Details Last Updated DateTime 3 933860. 07 g 47.5 kg/m2 177.8 cm 87 /min 97 % 97 % 142 mm[Hg] 72 mm[Hg] SORIN ARORA [address] [place], [address], [facility] 3 10:03:32 Date Recorded Body height Body mass index (BMI) Body weight Heart rate Oxygen saturation Oxygen saturation in Arterial blood by Pulse oximetry Systolic blood pressure Diastolic blood pressure Provider Name and Address Organization Details Last Updated DateTime 4 177.8 cm 40.9 kg/m2 394179. 83 g 64 /min 99 % 99 % 118 mm[Hg] 70 mm[Hg] Ricardo Rees [facility] 4 09:06:22 Social History Question Answer Notes LastModified by Organizat ion Details LastModified Time Tobacco Smoking Status Current Some Day Smoker cigar Winifred fraser [facility] 08/24/2020 11:51:00 What Was The Date Of Your Most Recent Tobacco Screening? 06/27/2024 [email or web address] Information not available 06/27/2024 Sex: Unknown Functional Status None recorded. Mental Status None recorded. Family History Nothing Reported. Medical History No medical history recorded. Immunizations Vaccine Type Date Status Note Provider Nam e and Address Organization Details Recorded Time SARS-COV-2 (COVID-19) vaccine, UNSPECIFIED 10/14/2020 completed Dori fraser [facility] 11/17/2020 10:25:42 Past Encounters Encounter ID Performer Location Encounter Start Date Encounter Closed Date Diagnosis/Indication Diagnosis SNOMED-CT Code Diagnosis ICD10 Code Diagnosis Note [id number] October [facility] [address] [place] [address],[place] [address] 03/06/2018 10:30:00 03/06/2018 14:47:23 Pain of left shoulder joint 0821535328 4144564 M25.512 [id number] [facility] [address] [place] [address],[place] [address] 03/12/2018 14:22:57 03/12/2018 15:33:12 Pain of left shoulder joint 9617407236 2997489 M25.512 significan t improvemen t return to work note [id number] [facility] Internal [address],[place] [address] 05/07/2019 09:45:23 05/07/2019 10:10:25 Body mass index 40+ - severely obese 162621103 Z68.41 had lost weight htne gradually gained it back Essential hypertension 88325478 I10 diet exercise reinforced Tobacco user 350711790 Z 72.0 5-6 cigars per year Screening procedure 2012 5006 Z13.9 Screening for malignant neoplasm of prostate 452000734 Z12.5 [id number] October THEO Ward [facility] [address] [facility],[place] [address] 07/23/2019 16:08:50 07/23/2019 16:44:12 Body mass index 40+ - severely obese 250136331 Z68.41 had lost weight then gradually gained it back Essential hypertension 19934366 I10 well controlled with lisinopril Tobacco user 951524331 Z 72.0 5-6 cigars per year Obstructiv e sleep apnea syndrome 85270273 G47.33 [id number] SORIN ARORA [facility] [address] [facility],[place] [address] 08/24/2020 11:36:47 08/24/2020 13:31:26 Essential hypertension 69233135 I10 BP is excellent today Obesity 629799029 E66.9 weight stable, will continue to stress diet and exercise Active or passive immunization 235191756 Z23 will have patient go for Tdap Booster [id number] Mika Hogue DO [facility] [address] [facility],[place] [address] 02/28/2021 14:21:49 02/28/2021 15:37:08 Active or passive immunization 787074514 Z23 Adult the [facility] th examination 544701264 Z00.01 [address] [place] [address] (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) MDM MODERATE MUST MEET 2 OUT OF [...] Body mass index 40+ - severely obese 898665918 Z68.41 long detailed discussion Hypogonadism 74368664 E2 9.1 we will rechk the lab Essential hypertension 21627675 I10 will chk usual labwe will then hold the losartan after he finsihes the current 90 day rx in may then we will have him chk bp at home and see him after holidays Obstructiv e sleep apnea syndrome 10758982 G47.33 doing every night [id number] SORIN ARORA [facility] [address] [facility],[place] [facility] [address] 2023 09:59:42 2023 10:35:02 Obstructive sleep apnea syndrome 26704368 G47.33 stable Essential hypertension 10626816 I10 BP is excellent today Hypogonadism 34551778 E2 9.1 stable Erectile dysfunction 860 689891 N52.8 will start on viagra and see how he fares on the lower dose Body mass index 40+ - severely obese 340767450 Z68.41 down in weight [id number] Mika Hogue DO [facility] [address] [facility],[place] [address] 06/27/2024 08:58:15 06/27/2024 09:38:43 Depression screening 154031489 Z13.31 neg Essential hypertension 64295516 I10 will chk usual labwe will then hold the losartan after he finsihes the current 90 day rx in late may then we will have him chk bp at home and see him after holidays Hypogonadism 73052504 E2 9.1 we will rechk the lab Obesity 433688519 E66.9 dropped 70 lbs and will be going for bariatric surg in aug Acute gout 147663798 M10 .00 Health Concerns Section Related Observation LastModified by Organization Detai ls LastModified Time None Recorded Concern Status LastModified by Organization Details LastModified Time None Recorded Advance Directives Directive None Recorded Payers Encounter Date Sequence Insurance Name Policy Number Policy Valadez Covered Member ID Valadez Member ID Guarantor Name 07/23/2019 1 CRYSTAL: FRANKY (PPO) [id number] Miguel Beasley [id number] Miguel ZuñigaCancharline 08/24/2020 1 [facility] [id number] Miguel Beasley [id number] Miguel ZuñigaCancharline 02/28/2021 1 [facility] [id number] Miguel ZuñigaCancharline [id number] Miguel ZuñigaCancharline 2023 1 [facility] [id number] Miguel ZuñigaCancharline [id number] Miguel ZuñigaCancharline 06/27/2024 1 [facility] [id number] Miguel Beasley [id number] Miguel Beasley Notes Date Note Type Note [...] rashes, or nail changes. THEO Guillermo [address] [place], [address], [facility] 07/23/2019 16:40:01 1 text/html BP [...] otherwise no concerns today SORIN ARORA [address] [place], [address], [facility] 08/24/2020 18:05:26 1 text/html Annual [...] hearing Vision:no vision problems Mika Hogue DO [address] [place] [address], [address], [facility] 02/28/2021 15:11:54 3 text/html medication check [...] stable BMI: down in weight SORIN ARORA [address] [place] [address], [address], [facility] 2023 10:20:23 4 text/html here for rechk and is feeling well relates that he has lost 70lbs through the [employer] [facility] loss prog !!!! also has had a recent attack of severe inflammatory arthritiswhich certainly sounds like an acute gout attack Mika Hogue DO [address] [place], [address], [facility] 06/27/2024 09:25:43
--- NOTE | 2024-09-01 08:10 | MHC.OFFVISWM ---
VS Expanded 09/01/24 08:12 BP 133/72 Pulse 73 Pulse Source Pulse Oximeter Temp 96.8 F Temperature Source Temporal Artery Scan Pulse Oximetry 98 Oxygen Delivery Method Room Air Height 5 ft 7 in Weight 220 lb 12.8 oz BMI 34.6 Body Fat % 33.9 Body Fat Mass 74.8 Fat Free Mass 146.0 Visceral Fat Rating 20.0 Body Water % 46.5 Body Water Mass 102.6 Muscle Mass/Score 138.6 Basal Metabolic Rate/Score 1,966 Intake Visit Reasons: (OV) PO LSG 08/26/24 -see note Allergies linezolid [From ZYVOX] Allergy (Mild, Verified 09/01/24 08:21) HIVES Medication List - Last Reconciled 09/01/24 by SORIN Estrella allopurinol 100 mg DAILY losartan 25 mg PO Q OTHER DAY pantoprazole 40 mg PO DAILY sucralfate 10 mL PO BID HPI Comments Details: Patient is a pleasant 64-year-old male who returns to the office today in follow-up. He is 6 days post sleeve gastrectomy and repair of hiatal hernia performed on 08/26/2024. He is using optimum protein powder, half scoop, x3 shakes per day. A proximally 48 oz of fluids per day. Denies any pain. COUNTS INCLUDE 234 BEDS AT THE [facility] Medical History Obesity Gout Surgical History S/P gastrectomy Hx of oral surgery Hx of colonoscopy Family History Family/Other No problems noted. Social History (Updated 08/26/24 @ 08:41 by Mehreen Olivera MD) Household Members: Spouse Housing: House Are you a primary foster care social worker to a significant other at home: No Do you presently have visiting nurse or other home services: No Alcohol intake: current Alcohol intake frequency: a few times a month Alcohol type: beer Comment: weekends socially Patient Tobacco Use Status: Current someday Tobacco user Tobacco use type: Cigar e-Cigarette/Vaping Use: Never Used Second Hand Smoke Exposure: No Substance Use Type: Marijuana Physical Exam Vital Signs: Last Vital Signs Temp 96.8 F 09/01/24 08:12 Pulse 73 09/01/24 08:12 Pulse Ox 98 09/01/24 08:12 Oxygen Delivery Method Room Air 09/01/24 08:12 GI Inspection: Yes incision (Clean, dry, intact.) Assessment & Plan Assessment & Plan (1) S/P laparoscopic sleeve gastrectomy: Code(s): Z98.84 - Bariatric surgery status Category: Surgical Plan: POD 6 s/p LSG and hiatal hernia repair on 08/26/[address] Choi Weight loss prior to surgery was 92 pounds or 28.4 % TBWL. Original weight on 02/1924 was 328 pounds and op weight was 236 pounds. Be sure to text Dr Choi exactly 1 week after surgery your weight from your home scale so he can adjust your meal plan. Continue meal plan until f/u maria ines Storm in 2 weeks May shower, no submersion in bath for another week Continue abdominal binder with activity and exercise for the next 2 weeks. Exercise prior to surgery was treadmill and may resume No abdominal exercises for 6 weeks post operatively Will be emailed link to post op video for review Reminded of the pace of drinking, 2 mL per minute, 1 oz/15 min. Of note, he works for [employer] requiring 50 lb lifting. He is going to check with his HR department as he may have a 20 lb weight restriction of lifting beginning next week and 50 lb weight restriction until 4 weeks postop.
[2024-09-01 08:12] VITALS: BP 133/72; PULSE 73; TEMP 36; O2SAT 98; BMI 34.6
== END 2024-09-01 09:07 | disposition home or self-care (01) ==
PROVIDERS: PCP Internal Medicine; Visit Provider Physician Assistant Surgical
DX: Z98.84 Bariatric surgery status (principal)
CPT/HCPCS: 99024

== ENCOUNTER → 2024-09-01 07:59 | Outpatient (BNVA) | payer OTHER, SELFPAY | PROVIDERS: PCP Internal Medicine; Visit Provider Physician Assistant Surgical ==

== ENCOUNTER 2024-09-23 08:13 | Outpatient (AMB) | payer OTHER, SELFPAY ==
--- NOTE | 2024-09-23 08:18 | MHC.OFFVISWM ---
VS Expanded 09/23/24 08:33 BP 133/83 Blood Pressure Location Rt brachial Blood Pressure Position Sitting Pulse 65 Pulse Source Pulse Oximeter Temp 98.1 F Temperature Source Temporal Artery Scan Pulse Oximetry 98 Oxygen Delivery Method Room Air Height 5 ft 7 in Weight 210 lb 12.8 oz BMI 33.0 Body Fat % 31.3 Body Fat Mass 66.0 Fat Free Mass 144.8 Visceral Fat Rating 18.0 Body Water % 48.8 Body Water Mass 103.0 Muscle Mass/Score 137.6 Basal Metabolic Rate/Score 1,936 Intake Visit Reasons: (OV) PO LSG 08/26/24 Digital Program Manager Required: No Allergies linezolid [From ZYVOX] Allergy (Mild, Verified 09/23/24 08:29) HIVES Medication List - Last Reconciled 09/23/24 by SORIN Estrella allopurinol 100 mg DAILY pantoprazole 40 mg PO DAILY sucralfate 10 mL PO BID HPI Comments Details: This?a?64?yo male who is s/p LSG without hiatal hernia repair on?08/26/2024. Presents for 1 month post op visit. Weight today is 210.8 pounds, with a BMI of 33. There has been a 117.2 pound weight loss,(initial weight 328 pounds) since starting the program on 02/25/24 reflecting a 35.7 % total body weight loss and a weight loss of 25.2 pounds since surgery (operative weight 236 pounds) reflecting a 10.6 % TBWL since surgery. No complaints of nausea, emesis, abdominal pain or reflux. Reports infrequent but normal bowel movements every 2-3 days. No longer taking losartan. Taking celebrate MVI Present meal plan includes: 8-10 optium nutrition 1/2 scoop (24 gm per scoop) 11-1 another shake 2-4 another shake 1 scoop 5-8 gatorade protein bar Drinking 30 oz additional ? Exercise routine includes: treadmill 300-400 alondra 6-7 days per week. [facility] Medical History BMI 36.0-36.9,adult BMI 37.0-37.9, adult Morbid obesity Obesity Gout Surgical History S/P gastrectomy Hx of oral surgery Hx of colonoscopy Family History Family/Other No problems noted. Social History Household Members: Spouse Housing: House Are you a primary physician locums urgent care to a significant other at home: No Do you presently have visiting nurse or other home services: No Alcohol intake: former Comment: weekends socially Patient Tobacco Use Status: Former Tobacco user Tobacco use type: Cigar e-Cigarette/Vaping Use: Never Used Second Hand Smoke Exposure: No Substance Use Type: Marijuana Physical Exam Const General: healthy appearing and no acute distress Resp Effort & Inspection: normal respiratory effort Auscultation: clear to auscultation bilaterally Cardio Rate: regular rate Rhythm: regular rhythm GI Auscultation: normal bowel sounds Extrem General: Yes normal to inspection Assessment & Plan Assessment & Plan (1) S/P laparoscopic sleeve gastrectomy: Code(s): Z98.84 - Bariatric surgery status Category: Surgical Plan: Patient is doing very well. He has no complaints at today's visit. He is satisfied with his meal plan and is going to continue at this point. He will discuss with Dr. Choi at approximately 6 weeks if he wishes to begin to incorporate food. He will continue exercise as he is able. Additionally, as he is planning on going back to work, he is planning on getting a recumbent stationary bike. We will have him return to the office in approximately 3-4 weeks.
[2024-09-23 08:33] VITALS: BP 133/83; PULSE 65; TEMP 36.7; O2SAT 98; BMI 33.0
== END 2024-09-23 08:55 | disposition home or self-care (01) ==
LOC: HO.HBS 08:14
PROVIDERS: PCP Internal Medicine; Visit Provider Physician Assistant Surgical
DX: Z98.84 Bariatric surgery status (principal)
CPT/HCPCS: 99024

== ENCOUNTER 2024-11-07 08:12 | Outpatient (AMB) | payer OTHER, SELFPAY ==
--- OUTSIDE RECORDS SUMMARY | 2024-11-07 08:20 | XMS_ITS | Data Portability ---
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 Procedures None recorded. Surgeries None recorded. Imaging None recorded. Medication Orders sildenafi l 25 mg tablet 2022 023 [id number], [address], [place], [id number], 2023 10:16:49 losartan 50 mg tablet 2020 021 [id number], [address], [place], [id number], 08/24/2020 12:10:00 Patient TargetsNo targets recorded. Patient Instructions Encounter Date Encounter Id Patient Instructions Last Modified By Organization Details Last Modified Time 02/28/2021 [id number] body mass index: care instructions Not available 02/28/2021 15:07:37 learning about healthy weight Not available 02/28/2021 15:07:37 sleep apnea: car e instructions Not available 02/28/2021 15:07:37 high blood pressure: care instructions Not available 02/28/2021 15:07:37 learning about high blood pressure Not available 02/28/2021 15:07:37 06/27/2024 [id number] When You Want to Lose Weight: Care Instructions Not available 06/27/2024 09:24:03 high blood pressure: care instructions Not available 06/27/2024 09:24:03 learning about high blood pressure Not available 06/27/2024 09:24:03 09/03/2024 [id number] sleep apnea: car e instructions Not available 09/03/2024 16:14:15 Reason for Referral None Reported. Results Created Date Observation Date Name Description Value Unit Range Abnormal Flag Note LastModifiedBy Organization Detail LastModifiedTime 03/13/2003/07/2024 US, abdom en, limit ed No observ ation record ed. [email or web address] [facility] (Medical Records) [address] [place], [address], 03/14/2024 08:57:05 04/01/20 24 03/15/2024 XR, chest , 2 view No observ ation record ed. [email or web address] [facility] (Medical Records) [address] [place], [address], 04/02/2024 08:45:45 05/14/20 24 05/13/2024 XR, abdom en + RF, upper gastr ointe aleida l tract , w/ air, w/ contr ast PO No observ ation record ed. [email or web address] [facility] (Medical Records) [address] [place], [address], 05/14/2024 16:29:08 06/24/20 24 06/24/2024 XR, wrist No observ ation record ed. [email or web address] [facility] (Medical Records) [address] [place], [address], 06/24/2024 15:14:28 06/24/20 24 06/24/2024 US, duple x, venou s, extre mity, compl ete No observ ation record ed. [facility] (Medical Records) [address] [place], [address], 06/24/2024 12:18:01 07/28/19 25 07/25/2024 NM, myoca rdial perfu leslie scan No observ ation record ed. [email or web address] [facility] (Medical Records) [address] [place], [address], 07/29/2024 08:29:57 07/28/19 25 07/25/2024 NM, myoca rdial perfu leslie scan, w/ stres s No observ ation record ed. [address] (Medical Records) [address] [place], [address], 07/29/2024 08:30:35 Result Notes None recorded. Problems Name Problem SNOMED Code Status Onset Date Resolution Date Notes Provider Name and Address Organization Details Recorded Time Cellulit is 847302870 Active 2017 leg Winifred fraser [place] - [facility] 8 08:15:14 Hypogona dism 35698955 Active 2017 [facility] 08:15:32 [facility] hyperten leslie 49018544 Active 2020 SORIN ARORA [address] [place] [address], [address], [facility] 1 12:15:43 Obesity 305730285 Completed 202009/03/2024 Mika Hogue, DO [address] [place] [address], [address], [facility] 5 16:14:15 Obstruct diomedes sleep apnea syndrome 80997792 Completed 202009/03/2024 Mika Hogue, DO [address] [place] [address], [address], [facility] 5 16:14:15 Erectile dysfunct ion 009316188 Active 2022 SORIN ARORA [address] [place] [address], [address], [facility] 3 10:14:52 Acute gout 659485384 Active 2023 Mika Hogue, DO [address] [place] [address], [address], [facility] 4 09:23:44 Gout 12258326 Active 2024 Mika Hogue, DO [address] [place] [address], [address], [facility] 5 15:16:54 Obesity 180041529 Active 2024 Mika Hogue DO [address] [place] [address], [address], [facility] 5 16:14:15 Obstruct diomedes sleep apnea syndrome 48521363 Active 2024 Mika Hogue, DO [address] [place], [address], [place] [facility] 16:14:15 Problem Notes None recorded. Procedures Surgical History None recorded. Imaging Results Imaging Date Name Status LastModified by Organization Details LastModified Time 03/07/2024 US, abdomen, limited completed [facility] (Medical Records) [address] [place], [address], 03/14/2024 08:57:05 03/15/2024 XR, chest, 2 view completed [address] (Medical Records) [address] [place], [address], 04/02/2024 08:45:45 05/13/2024 XR, abdomen + RF, upper gastrointestinal tract, w/ air, w/ contrast PO completed [facility] (Medical Records) [address] [place], [address], 05/14/2024 16:29:08 06/24/2024 XR, wrist completed [facility] (Medical Records) [address] [place], [address], 06/24/2024 15:14:28 06/24/2024 US, duplex, venous, extremity, complete completed [address] (Medical Records) [address] [place], [address], 06/24/2024 12:18:01 07/25/2024 NM, myocardial perfusion scan completed [address] (Medical Records) [address] [place], [address], 07/29/2024 08:29:57 07/25/2024 NM, myocardial perfusion scan, w/ stress completed [address] (Medical Records) [address] [place], [address], 07/29/2024 08:30:35 Procedure Notes None recorded. Medical Equipment None Reported. Allergies Allergen ID Allergen Name Allergen Category Reaction Reaction Severity Criticality Documentation Date Start Date Code Code System Note Provider Name and Address Organization Details Recorded Time 2202 Zyvox medicatio n hives Not available Not available 03/06/2018 04076 0 RxNorm Winifred fraser [place] - [facility] 8 10:39:23 Medications Name Sig [...] Not Available Not Available No t Available sucralfate 100 mg/mL oral suspension SHAKE LIQUID AND TAKE 10 ML BY MOUTH TWICE DAILY 2024 active Not Available Not Available Not Avai lable Medrol (Brian) 4 mg tablets in a dose pack Alt: 24 mg PO on day 1, then decr. by 4 mg/day x5 days per dose pack instructi ons 03/12 completed Not Available Not Available Not Available prednisone 20 mg tablet TAKE 2 TABLETS BY MOUTH DAILY FOR 5 DAYS 09/03 completed Not Available Not Available Not Available allopurinol 100 mg tablet TAKE 1 TABLET BY MOUTH EVERY DAY active Not Available Not Available No t Available sildenafil 25 mg tablet TAKE 1 TABLET BY MOUTH EVERY DAY FOR 8 DAYS active Not Available Not Available No t Available cephalexin 500 mg capsule TAKE 1 CAPSULE BY MOUTH FOUR TIMES DAILY FOR 7 DAYS 09/03 completed Not Available Not Available Not Available pantoprazol e 40 mg tablet,ricci yed release TAKE 1 TABLET BY MOUTH DAILY active Not Available Not Available No t Available lisinopril 10 mg tablet Take 1 tablet every day by oral route for 90 days. 06/21 completed Not Available Not Available Not Available oxycodone 5 mg capsule TAKE 1 CAPSULE BY MOUTH EVERY 8 HOURS FOR 3 DAYS NEEDED FOR PAIN 09/03 completed Not Available Not Available Not Available indomethaci n 50 mg capsule TAKE 1 CAPSULE BY MOUTH THREE TIMES DAILY FOR 7 DAYS 09/03 completed Not Available Not Available Not Available polyethylen e glycol 3350 17 gram/dose oral powder MIX EACH CAPFUL WITH 8OZ WATER/GAT ORADE/CRY STAL LIGHT AND DO 7 CAPFULS ON 08/24 AND ANOTHER 7 ON 08/25 active Not Available Not Available No t Available Vitamin B-1 100 mg tablet TAKE 1 TABLET BY MOUTH DAILY active Not Available Not Available No t Available ondansetron 4 mg disintegrat ing tablet DISSOLVE 1 TABLET ON THE TONGUE EVERY 12 HOURS FOR NAUSEA OR VOMITING 09/03 completed Not Available Not Available Not Available Aspir-81 Take one tablet once a day 09/03 completed Not Available Not Available Not Available colchicine 0.6 mg capsule TAKE 1 CAPSULE BY MOUTH TWICE DAILY FOR 3 DAYS 09/03 completed Not Available Not Available Not Available Vitals Date Recorded Body weight Heart rate Oxygen saturation Oxygen saturation in Arterial blood by Pulse oximetry Systolic blood pressure Diastolic blood pressure Provider Name and Address Organization Details Last Updated DateTime 1 695210. 6 g 78 /min 97 % 97 % 124 mm[Hg] 80 mm[Hg] Winifred Conrad [facility] 1 11:52:44 Date Recorded Body weight Body mass index (BMI) Body height Heart rate Oxygen saturation Oxygen saturation in Arterial blood by Pulse oximetry Systolic blood pressure Diastolic blood pressure Provider Name and Address Organization Details Last Updated DateTime 1 785387. 02 g 37.7 kg/m2 201.93 cm 81 /min 98 % 98 % 130 mm[Hg] 70 mm[Hg] Mika Hogue DO [address] [place], [address] 1 14:37:55 Date Recorded Body weight Body mass index (BMI) Body height Heart rate Oxygen saturation Oxygen saturation in Arterial blood by Pulse oximetry Systolic blood pressure Diastolic blood pressure Provider Name and Address Organization Details Last Updated DateTime 3 745371. 07 g 47.5 kg/m2 177.8 cm 87 /min 97 % 97 % 142 mm[Hg] 72 mm[Hg] SORIN ARORA [address] [place], [address] 3 10:03:32 Date Recorded Body height Body mass index (BMI) Body weight Heart rate Oxygen saturation Oxygen saturation in Arterial blood by Pulse oximetry Systolic blood pressure Diastolic blood pressure Provider Name and Address Organization Details Last Updated DateTime 4 177.8 cm 40.9 kg/m2 799651. 83 g 64 /min 99 % 99 % 118 mm[Hg] 70 mm[Hg] Ricardo Rees [facility] Internal [facility] 4 09:06:22 Date Recorded Body height Body mass index (BMI) Body weight Heart rate Oxygen saturation Oxygen saturation in Arterial blood by Pulse oximetry Systolic blood pressure Diastolic blood pressure Provider Name and Address Organization Details Last Updated DateTime 5 177.8 cm 31.6 kg/m2 57771.3 2 g 86 /min 98 % 98 % 126 mm[Hg] 82 mm[Hg] Mika Hogue DO [address] [place] [address], [address], [facility] Internal [facility] 5 15:54:24 Social History Question Answer Notes LastModified by Organizat ion Details LastModified Time Tobacco Smoking Status Current Some Day Smoker cigar Winifred fraser [facility] 08/24/2020 11:51:00 What Was The Date Of Your Most Recent Tobacco Screening? 06/27/2024 [email or web address] Information not available 06/27/2024 Sex: Unknown Functional Status None recorded. Mental Status None recorded. Family History Nothing Reported. Medical History No medical history recorded. Immunizations Vaccine Type Date Status Note Provider Nam e and Address Organization Details Recorded Time SARS-COV-2 (COVID-19) vaccine, UNSPECIFIED 10/14/2020 completed Dori fraser [facility] 11/17/2020 10:25:42 Past Encounters Encounter ID Performer Location Encounter Start Date Encounter Closed Date Diagnosis/Indication Diagnosis SNOMED-CT Code Diagnosis ICD10 Code Diagnosis Note [id number] Mika Hogue DO [facility] [address] [place] [address],[place] [address] 03/06/2018 10:30:00 03/06/2018 14:47:23 Pain of left shoulder joint 1219159866 0362149 M25.512 [id number] Mika Hogue DO [facility] [address] [facility] [address] [address] 03/12/2018 14:22:57 03/12/2018 15:33:12 Pain of left shoulder joint 4361674975 1515646 M25.512 significan t improvemen t return to work note [id number] Mika Hogue [facility] [address] [facility],[place] [address] 05/07/2019 09:45:23 05/07/2019 10:10:25 Body mass index 40+ - severely obese 852164169 Z68.41 had lost weight htne gradually gained it back Essential hypertension 97371587 I10 diet exercise reinforced Tobacco user 663223829 Z 72.0 5-6 cigars per year Screening procedure 2012 5006 Z13.9 Screening for malignant neoplasm of prostate 244701174 Z12.5 [id number] [facility] [address] [facility],[place] [address] 07/23/2019 16:08:50 07/23/2019 16:44:12 Body mass index 40+ - severely obese 256182022 Z68.41 had lost weight then gradually gained it back Essential hypertension 55564168 I10 well controlled with lisinopril Tobacco user 053828651 Z 72.0 5-6 cigars per year Obstructiv e sleep apnea syndrome 57005219 G47.33 [id number] Mika Hogue [facility] [address] [facility],[place] [address] 08/24/2020 11:36:47 08/24/2020 13:31:26 Essential hypertension 81795490 I10 BP is excellent today Obesity 536667712 E66.9 weight stable, will continue to stress diet and exercise Active or passive immunization 160397414 Z23 will have patient go for Tdap Booster [id number] Mika Hogue [facility] [address] [facility] [address] [address] 02/28/2021 14:21:49 02/28/2021 15:37:08 Active or passive immunization 790284108 Z23 Adult heal th examination 535388533 Z00.01 [address] [place] [address] ([address]WO [address] 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) MDM MODERATE MUST MEET 2 OUT OF [...] Body mass index 40+ - severely obese 199927707 Z68.41 long detailed discussion Hypogonadism 48710867 E2 9.1 we will rechk the lab Essential hypertension 30432729 I10 will chk usual labwe will then hold the losartan after he finsihes the current 90 day rx in late may then we will have him chk bp at home and see him after holidays Obstructiv e sleep apnea syndrome 57290902 G47.33 doing every night [id number] Mika Hogue DO [facility] [address] [facility],[place] [address] 2023 09:59:42 2023 10:35:02 Obstructive sleep apnea syndrome 05233801 G47.33 stable Essential hypertension 41712961 I10 BP is excellent today Hypogonadism 28018933 E2 9.1 stable Erectile dysfunction 860 138578 N52.8 will start on viagra and see how he fares on the lower dose Body mass index 40+ - severely obese 697190994 Z68.41 down in weight [id number] Mika Hogue DO [facility] [address] [facility],[place] [address] 06/27/2024 08:58:15 06/27/2024 09:38:43 Depression screening 107853464 Z13.31 neg Essential hypertension 91666443 I10 will chk usual labwe will then hold the losartan after he finsihes the current 90 day rx in late may then we will have him chk bp at home and see him after holidays Hypogonadism 44425751 E2 9.1 we will rechk the lab Obesity 297228972 E66.9 dropped 70 lbs and will be going for bariatric surg in aug Acute gout 700765201 M10 .00 [id number] Mika Hogue DO [facility] [address] [facility],[place] [address] 09/03/2024 15:24:04 09/03/2024 16:45:16 Essential hypertension 22625826 I10 will have him stop the losartan and get back to me in a week Gout 45210107 M10.9 quiet and will stay with allopurino l Obesity 565744295 E66.9 dropped 100 lbs and had bariatric surg in aug Obstructiv e sleep apnea syndrome 22780953 G47.33 no longer need cpap Health Concerns Section Related Observation LastModified by Organization Victorino quan LastModified Time None Recorded Concern Status LastModified by Organization Details LastModified Time None Recorded Advance Directives Directive None Recorded Payers Encounter Date Sequence Insurance Name Policy Number Policy Valadez Covered Member ID Valadez Member ID Guarantor Name 08/24/2020 1 [facility] [id number] Miguel Beasley [id number] Miguel Beasley 02/28/[address] [place] [address] [id number] Miguel Beasley [id number] Miguel Beasley [address] [place] [address] [id number] Miguel Beasley [id number] Miguel Beasley 06/27/[address] [place] [address] [id number] Miguel Beasley [id number] Miguel Beasley 09/03/[address] [place] [address] [id number] Miguel Beasley [id number] Miguel Beasley Notes Date Note Type Note Provider Name a nd Address Organization Details Recorded Time 1 text/html BP fu the patient BP [...] otherwise no concerns today SORIN ARORA [address] [place], [address], [facility] 08/24/2020 18:05:26 1 text/html [...] hearing Vision:no vision problems Mika Hogue DO [address] [place] [address], [address], [facility] 02/28/2021 15:11:54 3 text/html medication [...] BMI: down in weight SORIN ARORA [address] [place], [address], [facility] 2023 10:20:23 4 text/html here for rechk and is feeling well relates that he has lost 70lbs through the [place] [employer] [facility] wgt loss prog !!!! also has had a recent attack of severe inflammatory arthritiswhich certainly sounds like an acute gout attack Mika Hogue DO [address] [place], [address], [facility] 06/27/2024 09:25:43 5 text/html had gastric sleeve last week and is doing fantastichas lost weight and has been on liquid dietfeels great and is no longer using cpaphe also has been noted to not need full dose of bp med taking 1/2 tab Mika Hogue, DO [address] [facility], [place], [address], [facility] 09/03/2024 16:16:06
--- OUTSIDE RECORDS SUMMARY | 2024-11-07 08:21 | XMS_ITS | Clinical Summary ---
Author Organization [facility] Address [address] [place] [address] Care Team Providers Care Diabetes Education Coordinator Name Role Phone Unavailable Primary Care Provider Unavailabl e Allergies Active Allergy Reactions Criticality Noted Date Comments Linezolid Other (See Comments) 04/05/2018 Medications aspirin enteric coated (aspirin enteric coated) 81 MG EC tablet Take 81 mg by mouth. Active losartan (COZAAR) 50 MG tablet Take 50 mg by mouth daily. 05/17/2021 Active Social History Tobacco Use Types Packs/Day Years Used Date Smoking Tobacco: Never Assessed Sex and Gender Information Value Date Recorded Sex Assigned at Not on file Legal Sex Male 11:12 AM EST Gender Identity Not on file Sexual Orientation [...] 2) 2012 Influenza Vaccine 02/07/2024 COVID-19 Vaccine ( - 2023-2 5 season) 2024 RSV Vaccine 60 years and old er and Patients (1 - 1-dose 75+ series) 2037 Hepatitis B Vaccines Aged Out No long er eligible based on patient's age to complete this topic Insurance [facility]
--- NOTE | 2024-11-07 08:22 | A.OFFVIS_ITS ---
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 Presents for 2.5 month post op visit. Weight today is 186.4 pounds, with a BMI of 29.2. There has been a 141.6 pound weight loss,(initial weight 328 pounds) since starting the program on 02/25/24 reflecting a 43.1 % total body weight loss and a weight loss of 49.6 pounds since surgery (operative weight 236 pounds) reflecting a 21 % TBWL since surgery. No complaints of nausea, emesis, abdominal pain or reflux. Reports infrequent but normal bowel movements every 2- 3 days. No longer taking losartan. Taking celebrate MVI Present meal plan includes: 8-10 optium nutrition 1/2 scoop (24 gm per scoop) 11-1 another shake 2-4 gatorade protein bar 5-8 meal 3 forks protein and 3 forks veg 8-10 pm 1/2 scoop shake Drinking 50 oz additional ? Exercise routine includes: treadmill 300-400 alondra 2-3 days per week. [facility] Medical History BMI 36.0-36.9,adult BMI 37.0-37.9, adult Morbid obesity Obesity Gout Surgical History S/P gastrectomy Hx of oral surgery Hx of colonoscopy Family History Family/Other No problems noted. Social History Household Members: Spouse Housing: House Are you a primary student career development specialist to a significant other at home: No Do you presently have visiting nurse or other home services: No Alcohol intake: former Comment: weekends socially Patient Tobacco Use Status: Former Tobacco user Tobacco use type: Cigar e-Cigarette/Vaping Use: Never Used Second Hand Smoke Exposure: No Substance Use Type: Marijuana Physical Exam Const General: healthy appearing and no acute distress Resp Effort & Inspection: normal respiratory effort Auscultation: clear to auscultation bilaterally Cardio Rate: regular rate Rhythm: regular rhythm GI Auscultation: normal bowel sounds Extrem General: Yes normal to inspection Assessment & Plan Assessment & Plan (1) S/P laparoscopic sleeve gastrectomy: Code(s): Z98.84 - Bariatric surgery status Category: Surgical Plan: Patient is doing very well. Denies any complaints of pain, reflux. Following meal plan as prescribed to him by Dr. Choi. He has been exercising less due to having to work more over the last several weeks. This is going to be transitioning down. He is retiring in a proximally 25 days. He will increase exercise at that time. Continue current meal plan. Encouraged to text weekly and with any questions or concerns. Follow-up in the office 6 weeks
[2024-11-07 08:38] VITALS: BP 137/76; PULSE 62; TEMP 35.8; O2SAT 99; BMI 29.2
== END 2024-11-07 08:58 | disposition home or self-care (01) ==
LOC: HO.HBS 08:12
PROVIDERS: PCP Internal Medicine; Visit Provider Physician Assistant Surgical
DX: Z98.84 Bariatric surgery status (principal)
CPT/HCPCS: 99024

== ENCOUNTER 2025-01-02 08:44 | Outpatient (AMB) | payer OTHER, SELFPAY ==
--- NOTE | 2025-01-02 08:37 | MHC.OFFVISWM ---
VS Expanded 01/02/25 08:38 Height 5 ft 7 in Weight 174 lb 8 oz BMI 27.3 Intake Visit Reasons: TV PO LSG 08/26/24 Allergies linezolid (From ZYVOX) Allergy (Mild, Verified 11/07/24 08:27) HIVES Medication List - Last Reconciled 01/02/25 by SORIN Estrella allopurinol 100 mg DAILY HPI Comments Details: This?a?64?yo male who is s/p LSG with hiatal hernia repair on?08/26/2024. Presents for 4 month post op visit. Weight today is 174.8 pounds, with a BMI of 27.3. There has been a 153.2 pound weight loss,(initial weight 328 pounds) since starting the program on 02/25/24 reflecting a 46.7 % total body weight loss and a weight loss of 61.2 pounds since surgery (operative weight 236 pounds) reflecting a 25.9 % TBWL since surgery. No complaints of nausea, emesis, abdominal pain or reflux. Reports infrequent but normal bowel movements every 2-3 days. No longer taking losartan. Taking celebrate MVI Present meal plan includes: 7-9 optium nutrition 3/4 scoop (24 gm per scoop) 10-12 gatorade bar 1-3 another shake 4-6 gatorade protein bar 7pm meal 4 forks protein and 4 forks veg 9-10 1/2 bar (not having it 3-4 days of the week) Drinking 50 oz additional ? Exercise routine includes: treadmill at the gym [address] 5 days per week. [facility] Medical History BMI 36.0-36.9,adult BMI 37.0-37.9, adult Morbid obesity Obesity Gout Surgical History S/P gastrectomy Hx of oral surgery Hx of colonoscopy Family History Family/Other No problems noted. Social History Household Members: Spouse Housing: House Are you a primary health care law specialist to a significant other at home: No Do you presently have visiting nurse or other home services: No Alcohol intake: former Comment: weekends socially Patient Tobacco Use Status: Former Tobacco user Tobacco use type: Cigar e-Cigarette/Vaping Use: Never Used Second Hand Smoke Exposure: No Substance Use Type: Marijuana Telehealth Telehealth Telehealth Platform: Telephone Location of provider rendering services: practice address Location of patient: address on file Patient Identification confirmed using: Name, : Yes Telehealth method: voice only Patient verbally consented to treatment: Yes Patient verbally consented to billing insurance company: Yes Patient informed of any privacy concerns related to visit: Yes Minutes spent on Phone/Video with Pt.: 15 Assessment & Plan Assessment & Plan (1) S/P laparoscopic sleeve gastrectomy: Code(s): Z98.84 - Bariatric surgery status Category: Surgical Plan: Overall patient is doing well. He will communicate with Dr. Choi regarding his meal plan as a wishes to diversified. 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 He will identify if his hunger is on the days that he wakes up early. He has been increasing his shake scoop from 1/2 to 09/09. He will discuss this with Dr. Choi.
[2025-01-02 08:38] VITALS: BMI 27.3
== END 2025-01-02 09:25 | disposition home or self-care (01) ==
LOC: HO.HBS 08:44
PROVIDERS: PCP Internal Medicine; Visit Provider Physician Assistant Surgical
DX: E66.3 Overweight (principal); Z68.27 Body mass index [BMI] 27.0-27.9, adult; Z90.3 Acquired absence of stomach [part of]; Z98.84 Bariatric surgery status
CPT/HCPCS: 99213

== ENCOUNTER 2025-02-27 08:29 | Outpatient (AMB) | payer OTHER, SELFPAY ==
--- NOTE | 2025-02-27 08:32 | A.OFFVIS_ITS ---
VS Expanded 02/27/25 08:43 BP 135/68 Blood Pressure Location Rt brachial Blood Pressure Position Sitting Pulse 59 Pulse Source Pulse Oximeter Temp 96.2 F L Temperature Source Temporal Artery Scan Pulse Oximetry 98 Oxygen Delivery Method Room Air Height 5 ft 7 in Weight 175 lb 12.8 oz BMI 27.5 Body Fat % 20.9 Body Fat Mass 36.8 Fat Free Mass 12.0 Visceral Fat Rating 57.0 Body Water % 100 Body Water Mass 132.0 Muscle Mass/Score 132.0 Basal Metabolic Rate/Score 1,808 Intake Visit Reasons: OV PO LSG 08/26/24 Bridge Engineer Required: No Allergies linezolid (From ZYVOX) Allergy (Mild, Verified 11/07/24 08:27) HIVES Medication List - Last Reconciled 02/27/25 by SORIN Estrella allopurinol 100 mg DAILY HPI Comments Details: This?a?64?yo male who is s/p LSG with hiatal hernia repair on?08/26/2024. Presents for 6 month post op visit. Weight today is 175.8 pounds, with a BMI of 27.5. There has been a 153.2 pound weight loss,(initial weight 328 pounds) since starting the program on 02/25/24 reflecting a 46.7 % total body weight loss and a weight loss of 61.2 pounds since surgery (operative weight 236 pounds) reflecting a 25.9 % TBWL since surgery. No complaints of nausea, emesis, abdominal pain or reflux. Reports infrequent but normal bowel movements every 2-3 days. No longer taking losartan. Taking celebrate MVI Present meal plan includes: 7-9 optium nutrition 3/4 scoop (24 gm per scoop) 10-12 gatorade bar 1-3 another shake 4-6 gatorade protein bar 7pm meal 4 forks protein and 4 forks veg Drinking 50-60 oz additional ? Exercise routine includes: treadmill at the gym [address] 5 days per week. outdoor bike Any post op complications: none IKN: resolved DM: never HTN: never Hyperlipidemia: never GERD:?0-5 scale ??0 = no symptoms ??1 = symptoms noticeable but not bothersome 2 =symptoms bothersome but not daily ? 3 = symptoms bothersome and daily 4 = symptoms affect daily activities 5 = symptoms are incapacitating, unable to do daily activities ? How bad is the heartburn: 0 ? Heartburn while lying down: 0 ? Heartburn when standing up: 0 ? Heartburn after meals: 0 ? Does heartburn change your diet: 0 ? Does heartburn wake you up from sleep: 0 ? Do you have difficulty swallowin ? Do you have pain with swallowin ? If you take medicine for your reflux, does this affect your daily life: 0 Satisfaction with present condition - satisfied or not satisfied: satisfied [facility] Medical History BMI 36.0-36.9,adult BMI 37.0-37.9, adult Morbid obesity Obesity Gout Surgical History S/P gastrectomy Hx of oral surgery Hx of colonoscopy Family History Family/Other No problems noted. Social History Household Members: Spouse Housing: House Are you a primary healthcare science specialist to a significant other at home: No Do you presently have visiting nurse or other home services: No Alcohol intake: former Comment: weekends socially Patient Tobacco Use Status: Former Tobacco user Tobacco use type: Cigar e-Cigarette/Vaping Use: Never Used Second Hand Smoke Exposure: No Substance Use Type: Marijuana Physical Exam Const General: cooperative and no acute distress Orientation/consciousness: patient oriented x3 Resp Effort & Inspection: normal respiratory effort Auscultation: clear to auscultation bilaterally Cardio Rate: regular rate Rhythm: regular rhythm GI Inspection: Yes normal to inspection and Yes incision (well healed) Palpation (GI): Soft to palpation and no masses Neuro General: patient oriented x3 Assessment & Plan Assessment & Plan (1) S/P laparoscopic sleeve gastrectomy: Code(s): Z98.84 - Bariatric surgery status Category: Surgical Plan: Overall, patient is doing well, making progress. Advised to remove the bar at the end of the night and to consistently use half scoop in the morning. Additionally, alternate exercise at the gym with stationary bike, treadmill, elliptical. We will check six-month postop labs. We will have him return to the office in 6 weeks. Orders: Orders Insulin Today I10 - Essential (primary) hypertension, K76.0 - Fatty (change of) liver, not elsewhere classified, M10.9 - Gout, unspecified, Z98.84 - Bariatric surgery status C Reactive Protein Today I10 - Essential (primary) hypertension, K76.0 - Fatty (change of) liver, not elsewhere classified, M10.9 - Gout, unspecified, Z98.84 - Bariatric surgery status Ferritin Today I10 - Essential (primary) hypertension, K76.0 - Fatty (change of) liver, not elsewhere classified, M10.9 - Gout, unspecified, Z98.84 - Bariatric surgery status Hemoglobin A1c Today I10 - Essential (primary) hypertension, K76.0 - Fatty (change of) liver, not elsewhere classified, M10.9 - Gout, unspecified, Z98.84 - Bariatric surgery status Complete Blood Count Auto Diff Today I10 - Essential (primary) hypertension, K76.0 - Fatty (change of) liver, not elsewhere classified, M10.9 - Gout, unspecified, Z98.84 - Bariatric surgery status Lipid Panel Today I10 - Essential (primary) hypertension, K76.0 - Fatty (change of) liver, not elsewhere classified, M10.9 - Gout, unspecified, Z98.84 - Bariatric surgery status IRON PROFILE Today I10 - Essential (primary) hypertension, K76.0 - Fatty (change of) liver, not elsewhere classified, M10.9 - Gout, unspecified, Z98.84 - Bariatric surgery status Comprehensive Met. Panel Today I10 - Essential (primary) hypertension, K76.0 - Fatty (change of) liver, not elsewhere classified, M10.9 - Gout, unspecified, Z98.84 - Bariatric surgery status Vitamin B12 and Folate Today I10 - Essential (primary) hypertension, K76.0 - Fatty (change of) liver, not elsewhere classified, M10.9 - Gout, unspecified, Z98.84 - Bariatric surgery status Zinc Today I10 - Essential (primary) hypertension, K76.0 - Fatty (change of) liver, not elsewhere classified, M10.9 - Gout, unspecified, Z98.84 - Bariatric surgery status Vitamin B1 Today I10 - Essential (primary) hypertension, K76.0 - Fatty (change of) liver, not elsewhere classified, M10.9 - Gout, unspecified, Z98.84 - Bariatric surgery status Vitamin A Today I10 - Essential (primary) hypertension, K76.0 - Fatty (change of) liver, not elsewhere classified, M10.9 - Gout, unspecified, Z98.84 - Bariatric surgery status TSH reflex Free T4 Today I10 - Essential (primary) hypertension, K76.0 - Fatty (change of) liver, not elsewhere classified, M10.9 - Gout, unspecified, Z98.84 - Bariatric surgery status Vitamin D 25-OH Total Today I10 - Essential (primary) hypertension, K76.0 - Fatty (change of) liver, not elsewhere classified, M10.9 - Gout, unspecified, Z98.84 - Bariatric surgery status Referrals Behavioral Health Referral I10 - Essential (primary) hypertension, K76.0 - Fatty (change of) liver, not elsewhere classified, M10.9 - Gout, unspecified, Z98.84 - Bariatric surgery status
[2025-02-27 08:43] VITALS: BP 135/68; PULSE 59; TEMP 35.7; O2SAT 98; BMI 27.5
--- OUTSIDE RECORDS SUMMARY | 2025-02-27 08:43 | XMS_ITS ---
Author Name [facility] Organization Unknown Encounters Encounter Type Encounter Reason Primary Diagnosis Location Date Ambulatory Contact with and (suspected) exposure to covid-19 [facility] 07/05/2021 Care Team Organization Name Specialty Phone Email Start Date End Da te [facility] 07/05/2021 02/25/2024 [employer] 07/05/2021 07/06/2021
--- OUTSIDE RECORDS SUMMARY | 2025-02-27 08:43 | XMS_ITS | Clinical Summary ---
Author Organization [facility] Address [address] [place] [address] Phone Care Team Providers Care Edge Roller Name Role Phone Mika Ovalles Primary Care Provider [phone] Allergies Active Allergy Reactions Criticality Noted Date Comments Linezolid 04/05/2018 Medications aspirin 81 MG EC tablet Take 81 mg by mouth daily. Active Active Problems No known active problems Social History Tobacco Use Types Packs/Day Years Used Date Smoking Tobacco: Light Smoker Smokeless Tobacco: Never Comments:cigar Alcohol Use Standard Drinks/Week Comments Yes 0 (1 standard drink = 0.6 oz pur e alcohol) Education Answer Date Recorded Are you interested in more education? Not on annie e 11/03/2022 Are you concerned about learning? Not on file 11/03/2022 No 11/03/2022 No 11/03/2022 Digital Access Answer Date Recorded No 12/04/2022 No 12/04/2022 No 12/04/2022 Reliable internet access at home? Not on file 12/04/2022 Device with a working camera? Not on file Sex and Gender Information Value Date Recorded Sex Assigned at Not on file Legal Sex Male 9:45 PM EDT Gender Identity Not on file Sexual Orientation Not on file Last Filed Vital Signs Vital Sign Reading Time Taken Comments Blood Pressure - - Pulse - - Temperature - - Respiratory Rate - - Oxygen Saturation - - Inhaled Oxygen Concentration - - Weight 118.8 kg (262 lb) 04/05/2018 9:32 AM EDT Height 177.8 cm (5' 10 ) 04/05/2018 9:32 AM EDT Body Mass Index 37.59 04/05/2018 9:32 AM EDT Plan of Treatment Health Maintenance Due Date Last Done Comments Adult Td,Tdap Booster 1962 DEPRESSION SCREENING 1974 SMOKING Hx and SMOKELESS TOB ACCO SCREENING 1975 HEPATITIS C SCREENING 1980 HIV ONE-TIME SCREENING (18-6 5 YEARS) 1980 PNEUMOCOCCAL VACCINES (50+ y ears) (1 of 2 - PCV) 1981 COLOGUARD 2007 COLONOSCOPY 2007 COLORECTAL CANCER SCREENING 2007 FIT TEST 2007 FOBT 2007 SIGMOIDOSCOPY 2007 VIRTUAL COLONOSCOPY 2007 ZOSTER VACCINES (1 of 2) 2012 COVID-19 VACCINE (2 - 2023-2 5 season) 2024 10/14/2020 LIPID PANEL 03/02/2026 03/02/2021 RSV VACCINE (1 - 1-dose 75+ series) 2037 HEPATITIS A VACCINES Aged Out No long er eligible based on patient's age to complete this topic HIB VACCINES Aged Out No longer eligi ble based on patient's age to complete this topic MENINGOCOCCAL VACCINES (ACWY) Aged Out No longer eligible based on patient's age to complete this topic MENINGOCOCCAL VACCINES (B) Aged Out N o longer eligible based on patient's age to complete this topic Medical Devices Not on file Procedures Procedure Name Priority Date/Time Associated Diagnosis Comments LIPID PANEL Routine 03/02/2021 10:05 AM EDT Testicular hypofunction from Last 3 Months or Most Recently Relevant to Health Maintenance Results * (ABNORMAL) Lipid panel (03/02/2021 10:05 AM EDT) HDL 55 mg/dL [facility] Comment: Interpretation <40 mg/dL: Low HDL cholesterol (major risk factor for CHD) Greater than or equal to 60 mg/dL: High HDL cholesterol ( negative risk factor for CHD) HDL - cholesterol is affected by a number of factors, e.g. smoking, excerise, hormones, sex and age. CHOLESTEROL 215 0 - 240 mg/dL [facility] TRIGLYCERIDES 165(H) 30 - 160 mg/dL [facility] LDL 127 50 - 129 mg/dL [facility] Comment: LDL levels in terms of risk for coronary heart disease: <100 mg/dL: Optimal 100-129 mg/dL: Near or above optimal 130-159 mg/dL: Borderline high 160-189 mg/dL: High >190 mg/dL: Very High CARDIAC RISK RATIO 3.9 3.4 - 5.0 C [facility] Blood 03/02/2021 10:0 5 AM EDT 03/02/2021 10:09 AM EDT us Mika Ovalles DO LAB BLOOD ORDERABLES Final Resul t [facility] [address] [place] [address] from Last 3 Months or Most Recently Relevant to Health Maintenance Insurance [facility] POS POS [facility] [place] [address] [place] [address] [place] [address] [place] [address] POS [employer] [address] DENTAL Care Teams Edge Roller Relationship Specialty Start Date End Date Mika Ovalles DO [email or web address] PCP - General Internal Medicine 03/06/18 Additional Source Comments The information contained in this document represents components of the legal health record. It is not the complete legal health record.[facility]
--- OUTSIDE RECORDS SUMMARY | 2025-02-27 08:43 | XMS_ITS | Clinical Summary ---
Author Organization [facility] Address [address] [place] [address] Care Team Providers Care Hand Potter Name Role Phone Unavailable Primary Care Provider [...] 76 07/05/2021 4:07 PM EST Temperature 36.7 C (98.1 F) 07/05/2021 4:07 PM EST Respiratory Rate - - Oxygen Saturation 98% [...] Zoster (Shingles) Vaccine (1 of 2) 2012 COVID-19 Vaccine ( - 2023-2 5 season) 2024 Influenza Vaccine 02/06/2025 RSV Vaccine 60 years and old er and Patients (1 - 1-dose 75+ series) 2037 Hepatitis B Vaccines Aged Out No long er eligible based on patient's age to complete this topic Insurance [facility]
== END 2025-02-27 09:10 | disposition home or self-care (01) ==
LOC: HO.HBS 08:29
PROVIDERS: PCP Internal Medicine; Visit Provider Physician Assistant Surgical
DX: E66.3 Overweight (principal); Z68.27 Body mass index [BMI] 27.0-27.9, adult; Z90.3 Acquired absence of stomach [part of]; Z98.84 Bariatric surgery status
CPT/HCPCS: 99213

== ENCOUNTER 2025-04-10 11:54 | Outpatient (AMB) | payer OTHER, SELFPAY ==
--- NOTE | 2025-04-10 11:45 | A.OFFVIS_ITS ---
VS Expanded 04/10/25 11:47 Height 5 ft 7 in Weight 177 lb BMI 27.7 Intake Visit Reasons: Phone PO LSG 08/26/24 Allergies linezolid (From ZYVOX) Allergy (Mild, Verified 11/07/24 08:27) HIVES Medication List - Last Reconciled 04/10/25 by SORIN Hawkins allopurinol 100 mg DAILY HPI Comments Details: This?is a?65?yo M who is s/p LSG 08/26/2024. Presents for 8 month post op visit. Weight stable since last OV in February. No complaints of nausea, emesis, abdominal pain or reflux, or constipation. Present meal plan includes: 7-9 optimum nutrition 3/4 scoop (24 gm per scoop) 10-12 gatorade bar 1-3 another shake 4-6 gatorade protein bar 7pm meal 4 forks protein and 4 forks veg Drinking 50-60 oz additional can have berries for a snack Exercise routine includes: treadmill at the gym [address] 5 days per week. outdoor bike Have you been diagnosed with reflux (GERD)? Score 0-5: 0=no symptoms, 1=noticeable but not bothersome (slight or occasional), 2=noticeable, bothersome but not daily, 3=bothersome and daily, 4=affects daily activities, 5=incapacitating, unable to do daily activities How bad is the heartburn: 0 Heartburn when lying down: 0 Heartburn when standing up: 0 Heartburn after meals: 0 Does heartburn change your diet: 0 Does heartburn wake you up from sleep: 0 Do you have difficulty swallowin Do you have pain with swallowin If you take medication for reflux, does this affect your daily life: 0 Total score: 0 PFSH Medical History BMI 36.0-36.9,adult BMI 37.0-37.9, adult Morbid obesity Obesity Gout Surgical History S/P gastrectomy Hx of oral surgery Hx of colonoscopy Family History Family/Other No problems noted. Social History (Reviewed 02/27/25 @ 08:40 by LUCIUS Avendaño Household Members: Spouse Housing: House Are you a primary career representative to a significant other at home: No Do you presently have visiting nurse or other home services: No Alcohol intake: former Comment: weekends socially Patient Tobacco Use Status: Former Tobacco user Tobacco use type: Cigar e-Cigarette/Vaping Use: Never Used Second Hand Smoke Exposure: No Substance Use Type: Marijuana Telehealth Telehealth Telehealth Platform: Telephone Location of provider rendering services: other Location of patient: address on file Patient Identification confirmed using: Name, : Yes Telehealth method: voice only Patient verbally consented to treatment: Yes Patient verbally consented to billing insurance company: Yes Patient informed of any privacy concerns related to visit: Yes Minutes spent on Phone/Video with Pt.: 14 Assessment & Plan Assessment & Plan (1) S/P laparoscopic sleeve gastrectomy: Code(s): Z98.84 - Bariatric surgery status Category: Surgical (2) Overweight: Code(s): E66.3 - Overweight Category: Medical Plan Continue above meal plan and exercise routine. Pt has done very well with weight loss losing over 150lbs since starting with us. Pt reminded to have labs done. RTC in Aug for annual- pt requests in person visit.
[2025-04-10 11:47] VITALS: BMI 27.7
--- OUTSIDE RECORDS SUMMARY | 2025-04-10 12:53 | XMS_ITS | Clinical Summary ---
Author Organization [facility] Address [address] [place] [address] Care Team Providers Care Photonics Engineer Name Role Phone Unavailable Primary Care Provider [...] Vaccine (1 of 2) 2012 Influenza Vaccine 02/06/2025 COVID-19 Vaccine ( - 2023-2 5 season) 2025 RSV Vaccine 60 years and old er and Patients (1 - 1-dose 75+ series) 2037 Hepatitis B Vaccines Aged Out No long er eligible based on patient's age to complete this topic Insurance [facility]
--- OUTSIDE RECORDS SUMMARY | 2025-04-10 12:53 | XMS_ITS | Clinical Summary ---
Author Organization [facility] Address [address] [place] [address] Phone Care Team Providers Care Experimental Rocket Sled Mechanic Name Role Phone Mika Ovalles Primary Care Provider [phone] Allergies Active Allergy Reactions Criticality Noted Date [...] 2007 ZOSTER VACCINES (1 of 2) 2012 INFLUENZA VACCINE (#1) 2025 04/26/2016 COVID-19 VACCINE (2 - 2024-2 6 season) 2025 10/14/2020 LIPID PANEL 03/02/2026 03/02/2021 RSV VACCINE [...] (03/02/2021 10:05 AM EDT) HDL 55 mg/dL [facility] Comment: Interpretation <40 mg/dL: Low HDL cholesterol (major risk factor for CHD) Greater than or equal to 60 mg/dL: High HDL cholesterol ( negative risk factor for CHD) HDL - cholesterol is affected by a number of factors, e.g. smoking, excerise, hormones, sex and age. CHOLESTEROL 215 0 - 240 mg/dL [facility] TRIGLYCERIDES 165(H) 30 - 160 mg/dL [facility] LDL 127 50 - 129 mg/dL [facility] Comment: LDL levels in terms of risk for coronary heart disease: <100 mg/dL: Optimal 100-129 mg/dL: Near or above optimal 130-159 mg/dL: Borderline high 160-189 mg/dL: High >190 mg/dL: Very High CARDIAC RISK RATIO 3.9 3.4 - 5.0 C [facility] Blood 03/02/2021 10:0 5 AM EDT 03/02/2021 10:09 AM EDT us Mika Ovalles DO LAB BLOOD ORDERABLES Final Resul t [facility] [address] [place] [address] from Last 3 Months or Most Recently Relevant to Health Maintenance Insurance [facility] [employer] [place] [address] [place] [address] DENTAL Care Teams Experimental Rocket Sled Mechanic Relationship Specialty Start Date End Date Mika Ovalles DO [email or web address] PCP - General Internal Medicine 03/06/18 Additional Source Comments The information contained in this document represents components of the legal health record. It is not the complete legal health record.[facility]
== END 2025-04-10 11:58 | disposition home or self-care (01) ==
LOC: HO.HBS 11:54
PROVIDERS: PCP Internal Medicine; Visit Provider Physician Assistant Surgical
DX: E66.3 Overweight (principal); Z68.27 Body mass index [BMI] 27.0-27.9, adult; Z90.3 Acquired absence of stomach [part of]; Z98.84 Bariatric surgery status
CPT/HCPCS: 99213; G2211